=== PATIENT | female | born 1960 | race American Indian/Alaskan Native ===

== ENCOUNTER 2020-08-28 11:19 | Inpatient (IN) | payer MEDICARE ==
[2020-08-28] MEDS ORDERED: SODIUM CHLORIDE 0.9% 1000 ML 1,000 ML IV ONE (12:26)
[2020-08-28] MEDS ORDERED: cefTRIAXone/NS 1 GM/50 ML 1 GM/50 ML BAG IV ONE (12:53)
[2020-08-28] MEDS ORDERED: HYDROCORTISONE SOD SUCC 100 MG/2 ML VIAL IV ONE (12:54)
[2020-08-28] MEDS ORDERED: AZITHROMYCIN/NS 500 MG/250 ML 500 MG/250 ML BAG IV ONE (12:54)
--- NOTE | 2020-08-28 12:55 | Emergency Department Report ---
ED General Adult HPI - General Chief complaint: Dyspnea/Respdistress Stated complaint: SHORTNESS OF BREATH/ABDOMINAL PAIN Time Seen by Provider: 08/28/20 12:16 Source: EMS Mode of arrival: Ambulatory Limitations: No Limitations - History of Present Illness Initial comments: This is a 60-year-old female who arrives via EMS. She was found to have a pulse oximetry of 78% on room air on EMS arrival. She was placed on supplemental oxygen. She tells me that she has been coughing for at least 2 days. Apparently she declined the Covid vaccine. She states "I did not want it". She denies any known Covid exposure. She states that she has never been diagnosed with any cardiopulmonary problem. She has not been recently hospitalized. Patient describes the cough is nonproductive. She states that she has had some right upper quadrant pain and seems to be stating something about a "stone". She however denies kidney stone or gallstone. She denies any previous abdominal problem or surgery other than hysterectomy. Her current medications include a statin, allopurinol, glipizide (type 2 diabetes not on insulin) and metoprolol/HCTZ for hypertension. She does take aspirin. Apparently she has an additional history of hypothyroidism although not on current medications. Patient has not been taking her temperature but she thinks she may have had chills. -: Gradual Location: abdomen Radiation: non-radiation Quality: aching Improves with: none Worsens with: none Associated Symptoms: denies other symptoms, cough, shortness of breath - Related Data Allergies Allergy/AdvReac Type Severity Reaction Status Date / Time No Known Allergies Allergy Unverified 08/28/20 12:54 ED Review of Systems ROS: Stated complaint: SHORTNESS OF BREATH/ABDOMINAL PAIN Other details as noted in HPI Constitutional: chills. denies: fever Eyes: denies: eye pain, vision change ENT: denies: ear pain, throat pain Respiratory: cough, shortness of breath. denies: wheezing Cardiovascular: denies: chest pain, palpitations Endocrine: no symptoms reported Gastrointestinal: abdominal pain. denies: nausea, vomiting, diarrhea Genitourinary: denies: urgency, dysuria, discharge Musculoskeletal: denies: back pain, joint swelling, arthralgia Skin: denies: rash, lesions Neurological: denies: headache, weakness, paresthesias Psychiatric: denies: anxiety, depression Hematological/Lymphatic: denies: easy bleeding, easy bruising ED Past Medical Hx - Past Medical History Previous Medical History?: Yes Hx Hypertension: Yes Hx Diabetes: Yes Additional medical history: hypothyroidism , high cholesterol - Surgical History Additional Surgical History: hysterectomy - Social History Smoking Status: Former Smoker ED Physical Exam - General Limitations: Physical Limitation General appearance: alert, in no apparent distress - Head Head exam: Present: atraumatic, normocephalic - Eye Eye exam: Present: normal appearance. Absent: scleral icterus - ENT ENT exam: Present: mucous membranes moist - Neck Neck exam: Present: normal inspection. Absent: tenderness, meningismus - Respiratory Respiratory exam: Present: rhonchi (Occasional distant). Absent: respiratory distress - Cardiovascular Cardiovascular Exam: Present: regular rate, normal rhythm. Absent: systolic murmur, diastolic murmur, rubs, gallop - GI/Abdominal GI/Abdominal exam: Present: soft, normal bowel sounds. Absent: distended, tenderness, guarding, rebound, rigid, organomegaly, mass, bruit, pulsatile mass, hernia - Extremities Exam Extremities exam: Present: normal inspection, calf tenderness (Right calf) - Back Exam Back exam: Present: normal inspection. Absent: CVA tenderness (R), CVA tenderness (L), muscle spasm, paraspinal tenderness, vertebral tenderness - Neurological Exam Neurological exam: Present: alert, oriented X3, CN II-XII intact. Absent: motor sensory deficit - Psychiatric Psychiatric exam: Present: normal affect, normal mood - Skin Skin exam: Present: warm, dry, intact, normal color. Absent: rash ED Course Vital Signs 08/28/20 08/28/20 08/28/20 11:35 11:40 12:00 Temperature 97.8 F Pulse Rate 91 H Respiratory 18 Rate Blood Pressure 151/64 134/69 O2 Sat by Pulse 95 97 94 Oximetry 08/28/20 08/28/20 12:16 12:30 Temperature Pulse Rate 82 85 Respiratory 23 13 Rate Blood Pressure 134/69 129/73 O2 Sat by Pulse 96 98 Oximetry - Reevaluation(s) Reevaluation #1: Patient's chest x-ray and illness appear consistent with Covid. Her x-ray shows multifocal pneumonia. I do not think this is CHF. She was started on ceftriaxone and a azithromycin. She was given 1 dose of Solu-Medrol. Patient was not found to have any abdominal pain and did not continue to complain of this. I will defer further work-up to the hospitalist. Patient's blood gas was done on 4 L of O2. Her PO2 is only in the 70s. The nurse did try to very her oxygen rate and found her to be hypoxic on low flow. She is not retaining CO2. She does not need high flow or BiPAP at this point. Patient is referred to Dr. Deutsch for further care, work-up and management. He stated he would come to the emergency department to see her. 08/28/20 15:20 08/28/20 15:25 The patient's D-dimer is quite elevated. I will leave it up to Dr. Deutsch to decide on further imaging and anticoagulation protocol. ED Medical Decision Making - Lab Data Result diagrams: 08/28/20 13:29 08/28/20 13:29 Laboratory Results - last 24 hr 08/28/20 08/28/20 08/28/20 13:29 13:29 13:29 WBC 17.0 H RBC 4.22 Hgb 10.4 Hct 32.5 MCV 77 L MCH 25 L MCHC 32 RDW 18.7 H Plt Count 305 Lymph % (Auto) 15.0 [place] % (Auto) 5.2 Eos % (Auto) 1.1 Baso % (Auto) 0.3 Lymph # (Auto) 2.5 [place] # (Auto) 0.9 H Eos # (Auto) 0.2 Baso # (Auto) 0.0 Seg Neutrophils % 78.4 H Seg Neutrophils # 13.3 H PT 16.0 H INR 1.30 H APTT 39.5 H D-Dimer 1604.24 H ABG pH ABG pCO2 ABG pO2 ABG HCO3 ABG O2 Saturation ABG O2 Content ABG Base Excess ABG Hemoglobin ABG Carboxyhemoglobin ABG Methemoglobin Oxyhemoglobin FiO2 Sodium 143 Potassium 3.4 L Chloride 104.5 Carbon Dioxide 28 Anion Gap 14 BUN 17 Creatinine 1.6 H Estimated GFR 40 BUN/Creatinine Ratio 11 Glucose 117 H Lactic Acid Calcium 7.9 L Magnesium 1.50 L Ferritin Total Bilirubin Direct Bilirubin Indirect Bilirubin AST ALT Alkaline Phosphatase Lactate Dehydrogenase Total Creatine Kinase 136 H CK-MB (CK-2) 1.8 CK-MB (CK-2) Rel Index 1.3 Troponin T 0.018 C-Reactive Protein NT-Pro-B Natriuret Pep Total Protein Albumin Albumin/Globulin Ratio Lipase Urine Color Urine Turbidity Urine pH Ur Specific [place] Urine Protein Urine Glucose (UA) Urine Ketones Urine Blood Urine Nitrite Urine Bilirubin Urine Urobilinogen Ur Leukocyte Esterase Urine WBC (Auto) Urine RBC (Auto) U Epithel Cells (Auto) Urine Mucus 08/28/20 08/28/20 08/28/20 13:29 13:29 13:29 WBC RBC Hgb Hct MCV MCH MCHC RDW Plt Count Lymph % (Auto) [place] % (Auto) Eos % (Auto) Baso % (Auto) Lymph # (Auto) [place] # (Auto) Eos # (Auto) Baso # (Auto) Seg Neutrophils % Seg Neutrophils # PT INR APTT D-Dimer ABG pH ABG pCO2 ABG pO2 ABG HCO3 ABG O2 Saturation ABG O2 Content ABG Base Excess ABG Hemoglobin ABG Carboxyhemoglobin ABG Methemoglobin Oxyhemoglobin FiO2 Sodium Potassium Chloride Carbon Dioxide Anion Gap BUN Creatinine Estimated GFR BUN/Creatinine Ratio Glucose 116 H Lactic Acid 1.40 Calcium Magnesium Ferritin 395.2 H Total Bilirubin 0.40 Direct Bilirubin < 0.2 Indirect Bilirubin 0.2 AST 10 ALT < 5 L Alkaline Phosphatase 80 Lactate Dehydrogenase 179 Total Creatine Kinase CK-MB (CK-2) CK-MB (CK-2) Rel Index Troponin T C-Reactive Protein 9.10 H NT-Pro-B Natriuret Pep Total Protein 7.1 Albumin 3.0 L Albumin/Globulin Ratio 0.7 Lipase Urine Color Urine Turbidity Urine pH Ur Specific [place] Urine Protein Urine Glucose (UA) Urine Ketones Urine Blood Urine Nitrite Urine Bilirubin Urine Urobilinogen Ur Leukocyte Esterase Urine WBC (Auto) Urine RBC (Auto) U Epithel Cells (Auto) Urine Mucus 08/28/20 08/28/20 08/28/20 13:29 13:29 13:29 WBC RBC Hgb Hct MCV MCH MCHC RDW Plt Count Lymph % (Auto) [place] % (Auto) Eos % (Auto) Baso % (Auto) Lymph # (Auto) [place] # (Auto) Eos # (Auto) Baso # (Auto) Seg Neutrophils % Seg Neutrophils # PT INR APTT D-Dimer ABG pH ABG pCO2 ABG pO2 ABG HCO3 ABG O2 Saturation ABG O2 Content ABG Base Excess ABG Hemoglobin ABG Carboxyhemoglobin ABG Methemoglobin Oxyhemoglobin FiO2 Sodium Potassium Chloride Carbon Dioxide Anion Gap BUN Creatinine Estimated GFR BUN/Creatinine Ratio Glucose 117 H Lactic Acid Calcium Magnesium Ferritin Total Bilirubin Direct Bilirubin Indirect Bilirubin AST ALT Alkaline Phosphatase Lactate Dehydrogenase 179 Total Creatine Kinase CK-MB (CK-2) CK-MB (CK-2) Rel Index Troponin T C-Reactive Protein 9.10 H NT-Pro-B Natriuret Pep 3706 H Total Protein Albumin Albumin/Globulin Ratio Lipase 11 L Urine Color Urine Turbidity Urine pH Ur Specific [place] Urine Protein Urine Glucose (UA) Urine Ketones Urine Blood Urine Nitrite Urine Bilirubin Urine Urobilinogen Ur Leukocyte Esterase Urine WBC (Auto) Urine RBC (Auto) U Epithel Cells (Auto) Urine Mucus 08/28/20 08/28/20 Unknown Unknown WBC RBC Hgb Hct MCV MCH MCHC RDW Plt Count Lymph % (Auto) [place] % (Auto) Eos % (Auto) Baso % (Auto) Lymph # (Auto) [place] # (Auto) Eos # (Auto) Baso # (Auto) Seg Neutrophils % Seg Neutrophils # PT INR APTT D-Dimer ABG pH 7.425 ABG pCO2 41.2 ABG pO2 74.7 L ABG HCO3 26.4 H ABG O2 Saturation 96.1 ABG O2 Content 12.0 ABG Base Excess 1.9 ABG Hemoglobin 9.1 L ABG Carboxyhemoglobin 2.5 ABG Methemoglobin 0.5 Oxyhemoglobin 93.3 L FiO2 36 Sodium Potassium Chloride Carbon Dioxide Anion Gap BUN Creatinine Estimated GFR BUN/Creatinine Ratio Glucose Lactic Acid Calcium Magnesium Ferritin Total Bilirubin Direct Bilirubin Indirect Bilirubin AST ALT Alkaline Phosphatase Lactate Dehydrogenase Total Creatine Kinase CK-MB (CK-2) CK-MB (CK-2) Rel Index Troponin T C-Reactive Protein NT-Pro-B Natriuret Pep Total Protein Albumin Albumin/Globulin Ratio Lipase Urine Color Yellow Urine Turbidity Clear Urine pH 7.0 Ur Specific [place] 1.012 Urine Protein 100 mg/dl Urine Glucose (UA) Neg Urine Ketones Neg Urine Blood Neg Urine Nitrite Neg Urine Bilirubin Neg Urine Urobilinogen 4.0 Ur Leukocyte Esterase Neg Urine WBC (Auto) 2.0 Urine RBC (Auto) 2.0 U Epithel Cells (Auto) 2.0 Urine Mucus Few Critical care attestation.: If time is entered above; I have spent that time in minutes in the direct care of this critically ill patient, excluding procedure time. ED Disposition Clinical Impression: Hypoxia, Elevated brain natriuretic peptide (BNP) level Bilateral pneumonia Qualifiers: Pneumonia type: due to unspecified organism Lung location: lower lobe of lung Qualified Code(s): J18.9 - Pneumonia, unspecified organism Type 2 diabetes mellitus Qualifiers: Diabetes mellitus intermediate insulin use: without intermediate use Diabetes mellitus complication status: without complication Qualified Code(s): E11.9 - Type 2 diabetes mellitus without complications Disposition: OP ADMIT IP TO THIS HOSP Is pt being admited?: Yes Does the pt Need Aspirin: Yes Condition: Stable Instructions: Diabetes Mellitus Type 2 in Adults (ED), Bacterial Pneumonia (ED) Referrals: PRIMARY CARE, [Primary Care Provider] - 3-5 Days Time of Disposition: 15:26
--- NOTE | 2020-08-28 13:07 | XRay Report ---
CHEST 1 VIEW 08/28/2020 12:28 PM INDICATION / CLINICAL INFORMATION: Dyspnea. COMPARISON: None available. FINDINGS: SUPPORT DEVICES: None. HEART / MEDIASTINUM: No significant abnormality. LUNGS / PLEURA: There are patchy bilateral pulmonary opacities. No pneumothorax. ADDITIONAL FINDINGS: No significant additional findings. IMPRESSION: 1. Patchy bilateral pulmonary opacities that may indicate multifocal pneumonia. Signer Name: Facundo Stern MD Signed: 08/28/2020 1:02 PM Workstation Name: [id number]
[2020-08-28 13:23] LABS: Bilirubin,Urine NEG (Negative); Blood,Urine NEG (Negative); Color,Urine Yellow (Yellow); Mucus,Urine FEW /HPF
[2020-08-28 13:53] LABS: ABG Base Excess 1.9 mmol/L (-2.0-3.0); ABG HCO3 26.4 mmol/L (20.0-26.0); ABG Methemoglobin 0.5 % (0.0-1.5); ABG Oxygen Saturation 96.1 % (95.0-99.0); ABG PCO2 41.2 mm Hg; ABG PH 7.425 pH Units (7.350-7.450); ABG PO2 74.7 mm Hg (80.0-90.0)
[2020-08-28 13:55] LABS: Basophils % (Auto) 0.3 % (0.0-1.8); Eosinophils # (Auto) 0.2 K/mm3 (0.0-0.4); Eosinophils % (Auto) 1.1 % (0.0-4.3); Hematocrit 32.5 % (30.3-42.9); Hemoglobin 10.4 gm/dl (10.1-14.3); Lymphocytes # (Auto) 2.5 K/mm3 (1.2-5.4); Mean Corpuscular HGB Conc 32 % (30-34); Mean Corpuscular Volume 77 fl (79-97); Monocytes # (Auto) 0.9 K/mm3 (0.0-0.8); Monocytes % (Auto) 5.2 % (0.0-7.3); Platelet Count 305 K/mm3 (140-440); Red Blood Count 4.22 M/mm3 (3.65-5.03); Red Cell Distribution Width 18.7 % (13.2-15.2)
[2020-08-28 14:04] LABS: INR 1.3 (0.87-1.13)
[2020-08-28 14:05] LABS: Partial Thromboplastin Time 39.5 Sec. (24.2-36.6)
[2020-08-28 14:16] LABS: Creatine Kinase MB 1.8 ng/mL (0.0-4.0)
[2020-08-28 14:18] LABS: Calcium 7.9 mg/dL (8.4-10.2)
[2020-08-28 14:19] LABS: Alanine Aminotransferase < 5 units/L (7-56); Bilirubin,Direct < 0.2 mg/dL (0-0.2)
[2020-08-28 14:37] LABS: C-Reactive Protein 9.1 mg/dL (0.00-1.30)
--- NOTE | 2020-08-28 15:13 | Vascular Lab Report ---
DUPLEX DOPPLER LOWER EXTREMITY VEINS, RIGHT INDICATION / CLINICAL INFORMATION: r leg swelling. TECHNIQUE: Duplex doppler imaging was performed through the veins of the right lower extremity using venous comp ression and other maneuvers. COMPARISON: None available. FINDINGS: RIGHT COMMON FEMORAL VEIN: Negative. RIGHT FEMORAL VEIN: Negative. RIGHT POPLITEAL VEIN: Negative. RIGHT CALF VEINS: Negative. ADDITIONAL FINDINGS: None. IMPRESSION: 1. No sonographic evidence for DVT in the right lower extremity. Signer Name: Carlotta Harper MD Signed: 08/28/2020 3:08 PM Workstation Name: [id number]
[2020-08-28] MEDS ORDERED: ASPIRIN 325 MG TAB PO ONE (15:27)
--- NOTE | 2020-08-28 23:45 | History and Physical Report ---
History of Present Illness Date of examination: 08/28/20 Date of admission: 08/28/20 15:27 Chief complaint: Cough fever and shortness of breath for 2 days History of present illness: 61-year-old female with history of hypertension, type 2 diabetes and hyperlipidemia comes in for cough of 2 days duration associated with muscle aches. Cough productive of mucoid sputum. Also low-grade fever for the last 2 days. Patient apparently declined Covid vaccine. Because she does not believe in the Covid vaccine. No exposure to coronavirus as far as she knows. Some an osmia present which is intermittent. Her oxygen saturations were low in the emergency room. Normalized with 4 L nasal cannula oxygen - Past Medical History --Previous Medical History?: Yes --Hypertension: Yes --Diabetes: Yes --Additional medical history: hypothyroidism , high cholesterol - Surgical History Additional Surgical History: hysterectomy - Social History Smoking Status: Former Smoker Family history Htn Review of Systems ROS: Stated complaint: SHORTNESS OF BREATH/ABDOMINAL PAIN Other details as noted in HPI Constitutional: chills. denies: fever Eyes: denies: eye pain, vision change ENT: denies: ear pain, throat pain Respiratory: cough, shortness of breath. denies: wheezing Cardiovascular: denies: chest pain, palpitations Endocrine: no symptoms reported Gastrointestinal: abdominal pain. denies: nausea, vomiting, diarrhea Genitourinary: denies: urgency, dysuria, discharge Musculoskeletal: denies: back pain, joint swelling, arthralgia Skin: denies: rash, lesions Neurological: denies: headache, weakness, paresthesias Psychiatric: denies: anxiety, depression Hematological/Lymphatic: denies: easy bleeding, easy bruising Medications and Allergies Allergies Allergy/AdvReac Type Severity Reaction Status Date / Time No Known Allergies Allergy Unverified 08/28/20 12:54 Exam - Constitutional Vitals: Temp Pulse Resp BP Pulse Ox 97.8 F 96 H 15 149/119 95 08/28/20 11:35 08/28/20 21:30 08/28/20 21:30 08/28/20 21:30 08/28/20 21:30 General appearance: Present: mild distress, well-nourished - EENT Eyes: Present: PERRL ENT: hearing intact, clear oral mucosa - Neck Neck: Present: supple, normal ROM - Respiratory Respiratory effort: normal Respiratory: bilateral: CTA, rhonchi (Scattered rhonchi) - Cardiovascular Heart rate: 78 Rhythm: regular Heart Sounds: Present: S1 & S2. Absent: rub, click - Extremities Extremities: no ischemia, pulses intact, pulses symmetrical, No edema Peripheral Pulses: within normal limits - Abdominal General gastrointestinal: Present: soft, non-tender, non-distended, normal bowel sounds Female genitourinary: Present: normal - Integumentary Integumentary: Present: clear, warm, dry - Musculoskeletal Musculoskeletal: gait normal, strength equal bilaterally - Psychiatric Psychiatric: appropriate mood/affect, intact judgment & insight - Neurologic Neurologic: CNII-XII intact, moves all extremities - Allied Health Allied health notes reviewed: nursing, case management HEART Score - HEART Score Troponin: Troponin T 0.018 ng/mL (0.00-0.029) 08/28/20 13:29 Results - Labs CBC & Chem 7: 08/28/20 13:29 08/28/20 13:29 Labs: Laboratory Last Values WBC 17.0 K/mm3 (4.5-11.0) H 08/28/20 13:29 RBC 4.22 M/mm3 (3.65-5.03) 08/28/20 13:29 Hgb 10.4 gm/dl (10.1-14.3) 08/28/20 13:29 Hct 32.5 % (30.3-42.9) 08/28/20 13:29 MCV 77 fl (79-97) L 08/28/20 13:29 MCH 25 pg (28-32) L 08/28/20 13:29 MCHC 32 % (30-34) 08/28/20 13:29 RDW 18.7 % (13.2-15.2) H 08/28/20 13:29 Plt Count 305 K/mm3 (140-440) 08/28/20 13:29 Lymph % (Auto) 15.0 % (13.4-35.0) 08/28/20 13:29 [place] % (Auto) 5.2 % (0.0-7.3) 08/28/20 13:29 Eos % (Auto) 1.1 % (0.0-4.3) 08/28/20 13:29 Baso % (Auto) 0.3 % (0.0-1.8) 08/28/20 13:29 Lymph # (Auto) 2.5 K/mm3 (1.2-5.4) 08/28/20 13:29 [place] # (Auto) 0.9 K/mm3 (0.0-0.8) H 08/28/20 13:29 Eos # (Auto) 0.2 K/mm3 (0.0-0.4) 08/28/20 13:29 Baso # (Auto) 0.0 K/mm3 (0.0-0.1) 08/28/20 13:29 Seg Neutrophils % 78.4 % (40.0-70.0) H 08/28/20 13:29 Seg Neutrophils # 13.3 K/mm3 (1.8-7.7) H 08/28/20 13:29 PT 16.0 Sec. (12.2-14.9) H 08/28/20 13:29 INR 1.30 (0.87-1.13) H 08/28/20 13:29 APTT 39.5 Sec. (24.2-36.6) H 08/28/20 13:29 D-Dimer 1604.24 ng/mlDDU (0-234) H 08/28/20 13:29 ABG pH 7.425 pH Units (7.350-7.450) 08/28/20 Unknown ABG pCO2 41.2 mm Hg 08/28/20 Unknown ABG pO2 74.7 mm Hg (80.0-90.0) L 08/28/20 Unknown ABG HCO3 26.4 mmol/L (20.0-26.0) H 08/28/20 Unknown ABG O2 Saturation 96.1 % (95.0-99.0) 08/28/20 Unknown ABG O2 Content 12.0 (0.0-44) 08/28/20 Unknown ABG Base Excess 1.9 mmol/L (-2.0-3.0) 08/28/20 Unknown ABG Hemoglobin 9.1 gm/dl (12.0-16.0) L 08/28/20 Unknown ABG Carboxyhemoglobin 2.5 % (0.0-5.0) 08/28/20 Unknown ABG Methemoglobin 0.5 % (0.0-1.5) 08/28/20 Unknown Oxyhemoglobin 93.3 % (95.0-99.0) L 08/28/20 Unknown FiO2 36 % 08/28/20 Unknown Sodium 143 mmol/L (137-145) 08/28/20 13:29 Potassium 3.4 mmol/L (3.6-5.0) L 08/28/20 13:29 Chloride 104.5 mmol/L (98-107) 08/28/20 13:29 Carbon Dioxide 28 mmol/L (22-30) 08/28/20 13:29 Anion Gap 14 mmol/L 08/28/20 13:29 BUN 17 mg/dL (7-17) 08/28/20 13:29 Creatinine 1.6 mg/dL (0.6-1.2) H 08/28/20 13:29 Estimated GFR 40 ml/min 08/28/20 13:29 BUN/Creatinine Ratio 11 % 08/28/20 13:29 Glucose 116 mg/dL (65-100) H 08/28/20 13:29 Glucose 117 mg/dL (65-100) H 08/28/20 13:29 Glucose 117 mg/dL (65-100) H 08/28/20 13:29 Lactic Acid 1.40 mmol/L (0.7-2.0) 08/28/20 13:29 Calcium 7.9 mg/dL (8.4-10.2) L 08/28/20 13:29 Magnesium 1.50 mg/dL (1.7-2.3) L 08/28/20 13:29 Ferritin 395.2 ng/mL (10.0-200.0) H 08/28/20 13:29 Total Bilirubin 0.40 mg/dL (0.1-1.2) 08/28/20 13:29 Direct Bilirubin < 0.2 mg/dL (0-0.2) 08/28/20 13:29 Indirect Bilirubin 0.2 mg/dL 08/28/20 13:29 AST 10 units/L (5-40) 08/28/20 13:29 ALT < 5 units/L (7-56) L 08/28/20 13:29 Alkaline Phosphatase 80 units/L (35-129) 08/28/20 13:29 Lactate Dehydrogenase 179 units/L (91-180) 08/28/20 13:29 Lactate Dehydrogenase 179 units/L (91-180) 08/28/20 13:29 Total Creatine Kinase 136 units/L (30-135) H 08/28/20 13:29 CK-MB (CK-2) 1.8 ng/mL (0.0-4.0) 08/28/20 13:29 CK-MB (CK-2) Rel Index 1.3 (0-4) 08/28/20 13:29 Troponin T 0.018 ng/mL (0.00-0.029) 08/28/20 13:29 C-Reactive Protein 9.10 mg/dL (0.00-1.30) H 08/28/20 13:29 C-Reactive Protein 9.10 mg/dL (0.00-1.30) H 08/28/20 13:29 NT-Pro-B Natriuret Pep 3706 pg/mL (0-900) H 08/28/20 13:29 Total Protein 7.1 g/dL (6.3-8.2) 08/28/20 13:29 Albumin 3.0 g/dL (3.9-5) L 08/28/20 13:29 Albumin/Globulin Ratio 0.7 % 08/28/20 13:29 Lipase 11 units/L (13-60) L 08/28/20 13:29 Urine Color Yellow (Yellow) 08/28/20 Unknown Urine Turbidity Clear (Clear) 08/28/20 Unknown Urine pH 7.0 (5.0-7.0) 08/28/20 Unknown Ur Specific [place] 1.012 (1.003-1.030) 08/28/20 Unknown Urine Protein 100 mg/dl mg/dL (Negative) 08/28/20 Unknown Urine Glucose (UA) Neg mg/dL (Negative) 08/28/20 Unknown Urine Ketones Neg mg/dL (Negative) 08/28/20 Unknown Urine Blood Neg (Negative) 08/28/20 Unknown Urine Nitrite Neg (Negative) 08/28/20 Unknown Urine Bilirubin Neg (Negative) 08/28/20 Unknown Urine Urobilinogen 4.0 mg/dL (<2.0) 08/28/20 Unknown Ur Leukocyte Esterase Neg (Negative) 08/28/20 Unknown Urine WBC (Auto) 2.0 /HPF (0.0-6.0) 08/28/20 Unknown Urine RBC (Auto) 2.0 /HPF (0.0-6.0) 08/28/20 Unknown U Epithel Cells (Auto) 2.0 /HPF (0-13.0) 08/28/20 Unknown Urine Mucus Few /HPF 08/28/20 Unknown Microbiology: Microbiology 08/28/20 13:29 Peripheral/Venous Blood Culture - Preliminary Culture in Progress 08/28/20 13:29 Peripheral/Venous Blood Culture - Preliminary Culture in Progress - Imaging and Cardiology EKG: report reviewed Chest x-ray: report reviewed Imaging and Cardiology: Chest x-ray Patchy bilateral pulmonary opacities that may indicate multifocal pneumonia Assessment and Plan Assessment and plan: Assessment and plan 1. Acute respiratory failure with hypoxia Secondary to bilateral pneumonia and possible Covid pneumonia Titrate oxygen to keep saturations above 92 High flow oxygen if necessary BiPAP if necessary 2. Bilateral pneumonia Treat as community-acquired pneumonia for now with IV Rocephin and Zithromax IV Decadron for possible Covid pneumonia ID consult requested 3. Systemic inflammatory response syndrome Patient has a high white count and slight tachypnea and tachycardia. 4. Hypokalemia Supplemented 5. MARILIN Secondary to vasomotor nephropathy Encourage more oral fluids 6. Hypertension uncontrolled Valsartan and hydralazine initiated Also IV hydralazine 10 mg every 3 as needed for blood pressure more than 160/100 7. Type 2 diabetes As per history No home medications at present No medicines for reconciliation Check hemoglobin A1c Accu-Cheks AC at bedtime and coverage 8. DVT prophylaxis Lovenox subcu 40 mg initiated and GI bleed prophylaxis initiated Advance Directives: Yes ( full code) VTE prophylaxis?: Chemical Plan of care discussed with patient/family: Yes
[2020-08-28] MEDS ORDERED: oxyCODONE /ACETAMINOPHEN 5-325MG TAB PO PRN (23:53)
[2020-08-28] MEDS ORDERED: ONDANSETRON 4 MG/2 ML INJ IV PRN (23:53)
[2020-08-28] MEDS ORDERED: HYDROmorphone 1 MG/1 ML INJ IV PRN (23:53)
[2020-08-28] MEDS ORDERED: ACETAMINOPHEN 325 MG TAB PO PRN (23:53)
[2020-08-29] MEDS: dexAMETHasone 4 MG/ML VIAL IV SCH
[2020-08-29] MEDS ORDERED: POTASSIUM CHLORIDE ER 20 MEQ TAB PO ONE (00:21)
[2020-08-29 05:19] LABS: Basophils % (Auto) 0.2 % (0.0-1.8); Hematocrit 34.8 % (30.3-42.9); Hemoglobin 10.9 gm/dl (10.1-14.3); Lymphocytes # (Auto) 1.6 K/mm3 (1.2-5.4); Mean Corpuscular HGB Conc 31 % (30-34); Mean Corpuscular Volume 78 fl (79-97); Monocytes # (Auto) 0.2 K/mm3 (0.0-0.8); Platelet Count 311 K/mm3 (140-440); Red Blood Count 4.48 M/mm3 (3.65-5.03); Red Cell Distribution Width 18.8 % (13.2-15.2)
[2020-08-29 05:47] LABS: Albumin 3.1 g/dL (3.9-5)
[2020-08-29] MEDS: INSULIN LISPRO 100 UNIT/ML SUB-Q SCH ×4 (08:31→23:38)
[2020-08-29] MEDS: AZITHROMYCIN/NS 500 MG/250 ML 500 MG/250 ML BAG IV SCH (09:23)
[2020-08-29] MEDS: cefTRIAXone/NS 2 GM/100 ML 2 GM/100 ML BAG IV SCH (09:23)
[2020-08-29] MEDS: FAMOTIDINE 20 MG/2 ML INJ IV SCH (09:23)
[2020-08-29] MEDS: ZINC SULFATE 220 MG CAP PO SCH ×3 (09:24→21:01)
[2020-08-29] MEDS: CHOLECALCIFEROL (VIT D3) 5,000 UNIT TAB PO SCH (09:24)
[2020-08-29] MEDS: VALSARTAN 160MG TAB PO SCH ×3 (09:26→21:01)
[2020-08-29] MEDS: ASCORBIC ACID 500 MG TAB PO SCH ×2 (09:26→21:01)
[2020-08-29] MEDS ORDERED: FAMOTIDINE 20 MG/2 ML INJ IV SCH (10:00)
--- NOTE | 2020-08-29 13:11 | Progress Note ---
Assessment and Plan Assessment and plan: 60-year-old -[place] female who presents with acute respiratory failure with hypoxemia Assessment and plan 1. Acute respiratory failure with hypoxia Secondary to bilateral pneumonia and possible Covid pneumonia Continue respiratory support with nasal cannula oxygen, high flow or BiPAP as necessary 2. Bilateral pneumonia, community-acquired pneumonia versus Covid pneumonia Azithromycin and ceftriaxone IV Decadron for possible Covid pneumonia ID consult requested 3. Systemic inflammatory response syndrome Leukocytosis, tachypnea and tachycardia noted 4. Hypokalemia Supplemented 5. MARILIN Secondary to vasomotor nephropathy Encourage more oral fluids Could be patient's baseline at this time. 6. Hypertension uncontrolled Valsartan and hydralazine initiated IV hydralazine with parameters 7. Type 2 diabetes As per history Patient takes Lantus 15 units at bedtime hemoglobin A1c 5.4 Accu-Cheks AC at bedtime and coverage 8. DVT prophylaxis Lovenox subcu 40 mg initiated and GI bleed prophylaxis initiated History Interval history: 08/29/2020: Patient seen and examined, on about 3 L of oxygen, nasal cannula, no acute respiratory distress, urine breathing, denies any chest pain. States that her breathing has improved. Hospitalist Physical - Physical exam Narrative exam: General appearance: Obese, no acute distress, well-nourished EENT: PERRL, EOM intact, hearing intact, clear oral mucosa Neck: Present: supple, normal ROM Respiratory: bilateral CTA, negative: rales, rhonchi, wheezing Cardiovascular: Regular rate/rhythm, Normal S1 & S2. No gallop, rub Extremities: no ischemia, No edema, normal temperature, normal color, Full ROM Abdominal: soft, no tenderness, non-distended, normal bowel sounds Integumentary: Present: clear, warm, dry no wounds, no erythema noted Psychiatric: appropriate mood/affect, intact judgment & insight Neurologic: CNII-XII intact, moves all extremities, no sensory or motor abnormalities - Constitutional Vitals: Temp Pulse Resp BP Pulse Ox 97.8 F 98 H 22 185/88 94 08/28/20 11:35 08/29/20 11:27 08/29/20 12:44 08/29/20 11:27 08/29/20 12:44 General appearance: Present: mild distress, well-nourished HEART Score - HEART Score Troponin: Troponin T 0.018 ng/mL (0.00-0.029) 08/28/20 13:29 Results - Labs CBC & Chem 7: 08/29/20 05:07 08/29/20 05:07 Labs: Laboratory Last Values WBC 18.2 K/mm3 (4.5-11.0) H 08/29/20 05:07 RBC 4.48 M/mm3 (3.65-5.03) 08/29/20 05:07 Hgb 10.9 gm/dl (10.1-14.3) 08/29/20 05:07 Hct 34.8 % (30.3-42.9) 08/29/20 05:07 MCV 78 fl (79-97) L 08/29/20 05:07 MCH 24 pg (28-32) L 08/29/20 05:07 MCHC 31 % (30-34) 08/29/20 05:07 RDW 18.8 % (13.2-15.2) H 08/29/20 05:07 Plt Count 311 K/mm3 (140-440) 08/29/20 05:07 Lymph % (Auto) 9.0 % (13.4-35.0) L 08/29/20 05:07 [place] % (Auto) 1.0 % (0.0-7.3) 08/29/20 05:07 Eos % (Auto) 0.0 % (0.0-4.3) 08/29/20 05:07 Baso % (Auto) 0.2 % (0.0-1.8) 08/29/20 05:07 Lymph # (Auto) 1.6 K/mm3 (1.2-5.4) 08/29/20 05:07 [place] # (Auto) 0.2 K/mm3 (0.0-0.8) 08/29/20 05:07 Eos # (Auto) 0.0 K/mm3 (0.0-0.4) 08/29/20 05:07 Baso # (Auto) 0.0 K/mm3 (0.0-0.1) 08/29/20 05:07 Seg Neutrophils % 89.8 % (40.0-70.0) H 08/29/20 05:07 Seg Neutrophils # 16.3 K/mm3 (1.8-7.7) H 08/29/20 05:07 PT 16.0 Sec. (12.2-14.9) H 08/28/20 13:29 INR 1.30 (0.87-1.13) H 08/28/20 13:29 APTT 39.5 Sec. (24.2-36.6) H 08/28/20 13:29 D-Dimer 1604.24 ng/mlDDU (0-234) H 08/28/20 13:29 ABG pH 7.425 pH Units (7.350-7.450) 08/28/20 Unknown ABG pCO2 41.2 mm Hg 08/28/20 Unknown ABG pO2 74.7 mm Hg (80.0-90.0) L 08/28/20 Unknown ABG HCO3 26.4 mmol/L (20.0-26.0) H 08/28/20 Unknown ABG O2 Saturation 96.1 % (95.0-99.0) 08/28/20 Unknown ABG O2 Content 12.0 (0.0-44) 08/28/20 Unknown ABG Base Excess 1.9 mmol/L (-2.0-3.0) 08/28/20 Unknown ABG Hemoglobin 9.1 gm/dl (12.0-16.0) L 08/28/20 Unknown ABG Carboxyhemoglobin 2.5 % (0.0-5.0) 08/28/20 Unknown ABG Methemoglobin 0.5 % (0.0-1.5) 08/28/20 Unknown Oxyhemoglobin 93.3 % (95.0-99.0) L 08/28/20 Unknown FiO2 36 % 08/28/20 Unknown Sodium 143 mmol/L (137-145) 08/29/20 05:07 Potassium 3.6 mmol/L (3.6-5.0) 08/29/20 05:07 Chloride 105.0 mmol/L (98-107) 08/29/20 05:07 Carbon Dioxide 25 mmol/L (22-30) 08/29/20 05:07 Anion Gap 17 mmol/L 08/29/20 05:07 BUN 20 mg/dL (7-17) H 08/29/20 05:07 Creatinine 1.5 mg/dL (0.6-1.2) H 08/29/20 05:07 Estimated GFR 43 ml/min 08/29/20 05:07 BUN/Creatinine Ratio 13 % 08/29/20 05:07 Glucose 164 mg/dL (65-100) H 08/29/20 05:07 POC Glucose 153 mg/dL (70-105) H 08/29/20 00:32 Hemoglobin A1c 5.4 % (4-6) 08/29/20 05:07 Lactic Acid 1.40 mmol/L (0.7-2.0) 08/28/20 13:29 Calcium 8.0 mg/dL (8.4-10.2) L 08/29/20 05:07 Magnesium 1.50 mg/dL (1.7-2.3) L 08/28/20 13:29 Ferritin 395.2 ng/mL (10.0-200.0) H 08/28/20 13:29 Total Bilirubin 0.30 mg/dL (0.1-1.2) 08/29/20 05:07 Direct Bilirubin < 0.2 mg/dL (0-0.2) 08/28/20 13:29 Indirect Bilirubin 0.2 mg/dL 08/28/20 13:29 AST 10 units/L (5-40) 08/29/20 05:07 ALT 7 units/L (7-56) 08/29/20 05:07 Alkaline Phosphatase 85 units/L (35-129) 08/29/20 05:07 Lactate Dehydrogenase 179 units/L (91-180) 08/28/20 13:29 Lactate Dehydrogenase 179 units/L (91-180) 08/28/20 13:29 Total Creatine Kinase 136 units/L (30-135) H 08/28/20 13:29 CK-MB (CK-2) 1.8 ng/mL (0.0-4.0) 08/28/20 13:29 CK-MB (CK-2) Rel Index 1.3 (0-4) 08/28/20 13:29 Troponin T 0.018 ng/mL (0.00-0.029) 08/28/20 13:29 C-Reactive Protein 9.10 mg/dL (0.00-1.30) H 08/28/20 13:29 C-Reactive Protein 9.10 mg/dL (0.00-1.30) H 08/28/20 13:29 NT-Pro-B Natriuret Pep 3706 pg/mL (0-900) H 08/28/20 13:29 Total Protein 7.6 g/dL (6.3-8.2) 08/29/20 05:07 Albumin 3.1 g/dL (3.9-5) L 08/29/20 05:07 Albumin/Globulin Ratio 0.7 % 08/29/20 05:07 Lipase 11 units/L (13-60) L 08/28/20 13:29 Urine Color Yellow (Yellow) 08/28/20 Unknown Urine Turbidity Clear (Clear) 08/28/20 Unknown Urine pH 7.0 (5.0-7.0) 08/28/20 Unknown Ur Specific [place] 1.012 (1.003-1.030) 08/28/20 Unknown Urine Protein 100 mg/dl mg/dL (Negative) 08/28/20 Unknown Urine Glucose (UA) Neg mg/dL (Negative) 08/28/20 Unknown Urine Ketones Neg mg/dL (Negative) 08/28/20 Unknown Urine Blood Neg (Negative) 08/28/20 Unknown Urine Nitrite Neg (Negative) 08/28/20 Unknown Urine Bilirubin Neg (Negative) 08/28/20 Unknown Urine Urobilinogen 4.0 mg/dL (<2.0) 08/28/20 Unknown Ur Leukocyte Esterase Neg (Negative) 08/28/20 Unknown Urine WBC (Auto) 2.0 /HPF (0.0-6.0) 08/28/20 Unknown Urine RBC (Auto) 2.0 /HPF (0.0-6.0) 08/28/20 Unknown U Epithel Cells (Auto) 2.0 /HPF (0-13.0) 08/28/20 Unknown Urine Mucus Few /HPF 08/28/20 Unknown Microbiology: Microbiology 08/28/20 13:29 Peripheral/Venous Blood Culture - Preliminary Culture in Progress 08/28/20 13:29 Peripheral/Venous Blood Culture - Preliminary Culture in Progress Guzman/IV: Voiding Method Toilet Active Medications - Current Medications Current Medications: Generic Name Dose Route Start Last Admin Trade Name Freq PRN Reason Stop Dose Admin Acetaminophen 650 mg 08/28/20 23:53 Acetaminophen 325 Mg Tab PO Q4H PRN Pain MILD(1-3)/Fever >100.5/NEAL Ascorbic Acid 1,000 mg 08/28/20 23:45 08/29/20 09:26 Ascorbic Acid 500 Mg Tab PO 1,000 mg BID JUDY Administration Cholecalciferol 5,000 unit 08/29/20 10:00 08/29/20 09:24 Cholecalciferol (Vit D3) 5,000 Unit Tab PO 5,000 unit DAILY JUDY Administration Dexamethasone 8 mg 08/28/20 23:45 08/29/20 00:00 Dexamethasone 4 Mg/Ml Vial IV 8 mg Q24H JUDY Administration Enoxaparin Sodium 40 mg 08/29/20 22:00 Enoxaparin 40 Mg/0.4 Ml Inj SUB-Q QDAY@2200 [facility] Protocol Famotidine 20 mg 08/29/20 10:00 08/29/20 09:23 Famotidine 20 Mg/2 Ml Inj IV 20 mg DAILY JUDY Administration Hydralazine HCl 10 mg 08/29/20 00:00 Hydralazine 20 Mg/1 Ml Inj IV Q3H PRN Blood Pressure Hydromorphone HCl 0.5 mg 08/28/20 23:53 Hydromorphone 1 Mg/1 Ml Inj IV Q3H PRN Pain , Severe (7-10) Azithromycin 500 mg in 250 mls @ 250 mls/hr 08/29/20 10:00 08/29/20 09:23 Zithromax/Ns IV 250 mls/hr Q24H JUDY Administration Ceftriaxone Sodium 2 gm in 100 mls @ 200 mls/hr 08/29/20 10:00 08/29/20 09:23 Rocephin/Ns 2 Gm/100 Ml IV 200 mls/hr Q24HR [facility] Administration Protocol Insulin Human Lispro 0 unit 08/29/20 07:30 08/29/20 11:50 Insulin Lispro 100 Unit/Ml SUB-Q 2 unit ACHS [facility] Administration Protocol Ondansetron HCl 4 mg 08/28/20 23:53 Ondansetron 4 Mg/2 Ml Inj IV Q8H PRN Nausea And Vomiting Oxycodone/Acetaminophen 1 tab 08/28/20 23:53 08/29/20 05:39 Oxycodone /Acetaminophen 5-325mg Tab PO 1 tab Q6H PRN Administration Pain, Moderate (4-6) Sodium Chloride 10 ml 08/29/20 10:00 08/29/20 09:24 Sodium Chloride 0.9% 10 Ml Flush Syringe IV 10 ml BID JUDY Administration Sodium Chloride 10 ml 08/28/20 23:53 Sodium Chloride 0.9% 10 Ml Flush Syringe IV PRN PRN LINE FLUSH Valsartan 160 mg 08/29/20 00:00 08/29/20 09:26 Valsartan 160mg Tab PO 160 mg BID JUDY Administration Zinc Sulfate 220 mg 08/28/20 23:45 08/29/20 09:24 Zinc Sulfate 220 Mg Cap PO 220 mg BID JUDY Administration
[2020-08-29] MEDS ORDERED: amLODIPine 5 MG TAB PO SCH (19:00)
[2020-08-29] MEDS: ENOXAPARIN 40 MG/0.4 ML INJ SUB-Q SCH (21:01)
[2020-08-29] MEDS: INSULIN GLARGINE 100 UNITS/ML SUB-Q SCH (23:36)
[2020-08-30] MEDS: dexAMETHasone 4 MG/ML VIAL IV SCH ×2 (02:14→23:45)
[2020-08-30 07:49] LABS: Hematocrit 32.4 % (30.3-42.9); Hemoglobin 10.1 gm/dl (10.1-14.3); Mean Corpuscular HGB Conc 31 % (30-34); Mean Corpuscular Volume 77 fl (79-97); Platelet Count 305 K/mm3 (140-440); Red Blood Count 4.23 M/mm3 (3.65-5.03); Red Cell Distribution Width 18.9 % (13.2-15.2)
[2020-08-30 08:11] LABS: Calcium 8.1 mg/dL (8.4-10.2)
[2020-08-30] MEDS: INSULIN LISPRO 100 UNIT/ML SUB-Q SCH ×4 (08:29→21:58)
[2020-08-30] MEDS: ASCORBIC ACID 500 MG TAB PO SCH ×2 (09:40→21:19)
[2020-08-30] MEDS: CHOLECALCIFEROL (VIT D3) 5,000 UNIT TAB PO SCH (09:40)
[2020-08-30] MEDS: FAMOTIDINE 20 MG/2 ML INJ IV SCH (09:40)
--- NOTE | 2020-08-30 09:40 | Progress Note ---
Assessment and Plan Assessment and plan: 60-year-old -[place] female who presents with acute respiratory failure with hypoxemia Assessment and plan 1. Acute respiratory failure with hypoxia Secondary to bilateral pneumonia Continue respiratory support with nasal cannula oxygen, high flow or BiPAP as necessary 2. Bilateral pneumonia, community-acquired pneumonia Patient is Covid negative DC Decadron Azithromycin and ceftriaxone ID consult requested 3. Systemic inflammatory response syndrome Leukocytosis, tachypnea and tachycardia noted 4. Hypokalemia Supplement as needed 5. MARILIN Secondary to vasomotor nephropathy Encourage more oral fluids Could be patient's baseline at this time. 6. Hypertension uncontrolled Valsartan and hydralazine initiated IV hydralazine with parameters 7. Type 2 diabetes As per history Patient takes Lantus 15 units at bedtime hemoglobin A1c 5.4 Accu-Cheks AC at bedtime and coverage 8. DVT prophylaxis Lovenox subcu 40 mg initiated and GI bleed prophylaxis initiated Disposition: Continue to treat for community-acquired pneumonia, wean patient off of oxygen. History Interval history: 08/29/2020: Patient seen and examined, on about 3 L of oxygen, nasal cannula, no acute respiratory distress, urine breathing, denies any chest pain. States that her breathing has improved. 08/30/2020: Patient examined, on 3 L of oxygen, states that she has no chest pain, shortness of breath persists with some ambulation. No nausea vomiting, tolerating diet. Hospitalist Physical - Physical exam Narrative exam: General appearance: Obese, no acute distress, well-nourished EENT: PERRL, EOM intact, hearing intact, clear oral mucosa Neck: Present: supple, normal ROM Respiratory: Right lung clear, minimal crackles heard on lower left lung base, no wheezes, no rhonchi Cardiovascular: Regular rate/rhythm, Normal S1 & S2. No gallop, rub Extremities: no ischemia, No edema, normal temperature, normal color, Full ROM Abdominal: soft, no tenderness, non-distended, normal bowel sounds Integumentary: Present: clear, warm, dry no wounds, no erythema noted Psychiatric: appropriate mood/affect, intact judgment & insight Neurologic: CNII-XII intact, moves all extremities, no sensory or motor abnormalities - Constitutional Vitals: Temp Pulse Resp BP Pulse Ox 99 F 96 H 18 166/70 91 08/30/20 03:00 08/30/20 03:00 08/30/20 03:00 08/30/20 03:00 08/30/20 08:44 General appearance: Present: mild distress, well-nourished HEART Score - HEART Score Troponin: Troponin T 0.018 ng/mL (0.00-0.029) 08/28/20 13:29 Results - Labs CBC & Chem 7: 08/30/20 07:17 08/30/20 07:17 Labs: Laboratory Last Values WBC 18.3 K/mm3 (4.5-11.0) H 08/30/20 07:17 RBC 4.23 M/mm3 (3.65-5.03) 08/30/20 07:17 Hgb 10.1 gm/dl (10.1-14.3) 08/30/20 07:17 Hct 32.4 % (30.3-42.9) 08/30/20 07:17 MCV 77 fl (79-97) L 08/30/20 07:17 MCH 24 pg (28-32) L 08/30/20 07:17 MCHC 31 % (30-34) 08/30/20 07:17 RDW 18.9 % (13.2-15.2) H 08/30/20 07:17 Plt Count 305 K/mm3 (140-440) 08/30/20 07:17 Lymph % (Auto) 9.0 % (13.4-35.0) L 08/29/20 05:07 [place] % (Auto) 1.0 % (0.0-7.3) 08/29/20 05:07 Eos % (Auto) 0.0 % (0.0-4.3) 08/29/20 05:07 Baso % (Auto) 0.2 % (0.0-1.8) 08/29/20 05:07 Lymph # (Auto) 1.6 K/mm3 (1.2-5.4) 08/29/20 05:07 [place] # (Auto) 0.2 K/mm3 (0.0-0.8) 08/29/20 05:07 Eos # (Auto) 0.0 K/mm3 (0.0-0.4) 08/29/20 05:07 Baso # (Auto) 0.0 K/mm3 (0.0-0.1) 08/29/20 05:07 Seg Neutrophils % 89.8 % (40.0-70.0) H 08/29/20 05:07 Seg Neutrophils # 16.3 K/mm3 (1.8-7.7) H 08/29/20 05:07 PT 16.0 Sec. (12.2-14.9) H 08/28/20 13:29 INR 1.30 (0.87-1.13) H 08/28/20 13:29 APTT 39.5 Sec. (24.2-36.6) H 08/28/20 13:29 D-Dimer 1604.24 ng/mlDDU (0-234) H 08/28/20 13:29 ABG pH 7.425 pH Units (7.350-7.450) 08/28/20 Unknown ABG pCO2 41.2 mm Hg 08/28/20 Unknown ABG pO2 74.7 mm Hg (80.0-90.0) L 08/28/20 Unknown ABG HCO3 26.4 mmol/L (20.0-26.0) H 08/28/20 Unknown ABG O2 Saturation 96.1 % (95.0-99.0) 08/28/20 Unknown ABG O2 Content 12.0 (0.0-44) 08/28/20 Unknown ABG Base Excess 1.9 mmol/L (-2.0-3.0) 08/28/20 Unknown ABG Hemoglobin 9.1 gm/dl (12.0-16.0) L 08/28/20 Unknown ABG Carboxyhemoglobin 2.5 % (0.0-5.0) 08/28/20 Unknown ABG Methemoglobin 0.5 % (0.0-1.5) 08/28/20 Unknown Oxyhemoglobin 93.3 % (95.0-99.0) L 08/28/20 Unknown FiO2 36 % 08/28/20 Unknown Sodium 145 mmol/L (137-145) 08/30/20 07:17 Potassium 3.3 mmol/L (3.6-5.0) L 08/30/20 07:17 Chloride 107.4 mmol/L (98-107) H 08/30/20 07:17 Carbon Dioxide 26 mmol/L (22-30) 08/30/20 07:17 Anion Gap 15 mmol/L 08/30/20 07:17 BUN 23 mg/dL (7-17) H 08/30/20 07:17 Creatinine 1.3 mg/dL (0.6-1.2) H 08/30/20 07:17 Estimated GFR 50 ml/min 08/30/20 07:17 BUN/Creatinine Ratio 18 % 08/30/20 07:17 Glucose 192 mg/dL (65-100) H 08/30/20 07:17 POC Glucose 166 mg/dL (70-105) H 08/29/20 21:50 Hemoglobin A1c 5.4 % (4-6) 08/29/20 05:07 Lactic Acid 1.40 mmol/L (0.7-2.0) 08/28/20 13:29 Calcium 8.1 mg/dL (8.4-10.2) L 08/30/20 07:17 Magnesium 1.50 mg/dL (1.7-2.3) L 08/28/20 13:29 Ferritin 395.2 ng/mL (10.0-200.0) H 08/28/20 13:29 Total Bilirubin 0.30 mg/dL (0.1-1.2) 08/29/20 05:07 Direct Bilirubin < 0.2 mg/dL (0-0.2) 08/28/20 13:29 Indirect Bilirubin 0.2 mg/dL 08/28/20 13:29 AST 10 units/L (5-40) 08/29/20 05:07 ALT 7 units/L (7-56) 08/29/20 05:07 Alkaline Phosphatase 85 units/L (35-129) 08/29/20 05:07 Lactate Dehydrogenase 179 units/L (91-180) 08/28/20 13:29 Lactate Dehydrogenase 179 units/L (91-180) 08/28/20 13:29 Total Creatine Kinase 136 units/L (30-135) H 08/28/20 13:29 CK-MB (CK-2) 1.8 ng/mL (0.0-4.0) 08/28/20 13:29 CK-MB (CK-2) Rel Index 1.3 (0-4) 08/28/20 13:29 Troponin T 0.018 ng/mL (0.00-0.029) 08/28/20 13:29 C-Reactive Protein 9.10 mg/dL (0.00-1.30) H 08/28/20 13:29 C-Reactive Protein 9.10 mg/dL (0.00-1.30) H 08/28/20 13:29 NT-Pro-B Natriuret Pep 3706 pg/mL (0-900) H 08/28/20 13:29 Total Protein 7.6 g/dL (6.3-8.2) 08/29/20 05:07 Albumin 3.1 g/dL (3.9-5) L 08/29/20 05:07 Albumin/Globulin Ratio 0.7 % 08/29/20 05:07 Lipase 11 units/L (13-60) L 08/28/20 13:29 Procalcitonin 0.11 ng/mL (<0.15) 08/28/20 13:29 Urine Color Yellow (Yellow) 08/28/20 Unknown Urine Turbidity Clear (Clear) 08/28/20 Unknown Urine pH 7.0 (5.0-7.0) 08/28/20 Unknown Ur Specific [place] 1.012 (1.003-1.030) 08/28/20 Unknown Urine Protein 100 mg/dl mg/dL (Negative) 08/28/20 Unknown Urine Glucose (UA) Neg mg/dL (Negative) 08/28/20 Unknown Urine Ketones Neg mg/dL (Negative) 08/28/20 Unknown Urine Blood Neg (Negative) 08/28/20 Unknown Urine Nitrite Neg (Negative) 08/28/20 Unknown Urine Bilirubin Neg (Negative) 08/28/20 Unknown Urine Urobilinogen 4.0 mg/dL (<2.0) 08/28/20 Unknown Ur Leukocyte Esterase Neg (Negative) 08/28/20 Unknown Urine WBC (Auto) 2.0 /HPF (0.0-6.0) 08/28/20 Unknown Urine RBC (Auto) 2.0 /HPF (0.0-6.0) 08/28/20 Unknown U Epithel Cells (Auto) 2.0 /HPF (0-13.0) 08/28/20 Unknown Urine Mucus Few /HPF 08/28/20 Unknown Coronavirus (PCR) Negative (Negative) 08/29/20 Unknown Microbiology: Microbiology 08/28/20 13:29 Peripheral/Venous Blood Culture - Preliminary NO GROWTH AFTER 24 HOURS 08/28/20 13:29 Peripheral/Venous Blood Culture - Preliminary NO GROWTH AFTER 24 HOURS Guzman/IV: Voiding Method Toilet Active Medications - Current Medications Current Medications: Generic Name Dose Route Start Last Admin Trade Name Freq PRN Reason Stop Dose Admin Acetaminophen 650 mg 08/28/20 23:53 Acetaminophen 325 Mg Tab PO Q4H PRN Pain MILD(1-3)/Fever >100.5/NEAL Amlodipine Besylate 10 mg 08/30/20 07:32 Amlodipine 10 Mg Tab PO QDAY JUDY Ascorbic Acid 1,000 mg 08/28/20 23:45 08/29/20 21:01 Ascorbic Acid 500 Mg Tab PO 1,000 mg BID JUDY Administration Cholecalciferol 5,000 unit 08/29/20 10:00 08/29/20 09:24 Cholecalciferol (Vit D3) 5,000 Unit Tab PO 5,000 unit DAILY JUDY Administration Dexamethasone 8 mg 08/28/20 23:45 08/30/20 02:14 Dexamethasone 4 Mg/Ml Vial IV 8 mg Q24H JUDY Administration Enoxaparin Sodium 40 mg 08/29/20 22:00 08/29/20 21:01 Enoxaparin 40 Mg/0.4 Ml Inj SUB-Q 40 mg QDAY@2200 [facility] Administration Protocol Famotidine 20 mg 08/29/20 10:00 08/29/20 09:23 Famotidine 20 Mg/2 Ml Inj IV 20 mg DAILY JUDY Administration Hydralazine HCl 10 mg 08/29/20 00:00 Hydralazine 20 Mg/1 Ml Inj IV Q3H PRN Blood Pressure Hydromorphone HCl 0.5 mg 08/28/20 23:53 Hydromorphone 1 Mg/1 Ml Inj IV Q3H PRN Pain , Severe (7-10) Azithromycin 500 mg in 250 mls @ 250 mls/hr 08/29/20 10:00 08/29/20 09:23 Zithromax/Ns IV 250 mls/hr Q24H JUDY Administration Ceftriaxone Sodium 2 gm in 100 mls @ 200 mls/hr 08/29/20 10:00 08/29/20 09:23 Rocephin/Ns 2 Gm/100 Ml IV 200 mls/hr Q24HR [facility] Administration Protocol Insulin Glargine 10 units 05/22/21 22:00 08/29/20 23:36 Insulin Glargine 100 Units/Ml SUB-Q 10 units QHS JUDY Administration Insulin Human Lispro 0 unit 08/29/20 07:30 08/30/20 08:29 Insulin Lispro 100 Unit/Ml SUB-Q 2 unit ACHS JUDY Administration Protocol Ondansetron HCl 4 mg 08/28/20 23:53 Ondansetron 4 Mg/2 Ml Inj IV Q8H PRN Nausea And Vomiting Oxycodone/Acetaminophen 1 tab 08/28/20 23:53 08/29/20 05:39 Oxycodone /Acetaminophen 5-325mg Tab PO 1 tab Q6H PRN Administration Pain, Moderate (4-6) Sodium Chloride 10 ml 08/29/20 10:00 08/29/20 21:05 Sodium Chloride 0.9% 10 Ml Flush Syringe IV Not Given BID JUDY Sodium Chloride 10 ml 08/28/20 23:53 Sodium Chloride 0.9% 10 Ml Flush Syringe IV PRN PRN LINE FLUSH Valsartan 160 mg 08/29/20 00:00 08/29/20 21:01 Valsartan 160mg Tab PO 160 mg BID JUDY Administration Zinc Sulfate 220 mg 08/28/20 23:45 08/29/20 21:01 Zinc Sulfate 220 Mg Cap PO 220 mg BID JUDY Administration
[2020-08-30] MEDS: cefTRIAXone/NS 2 GM/100 ML 2 GM/100 ML BAG IV SCH (09:41)
[2020-08-30] MEDS ORDERED: POTASSIUM CHLORIDE ER 20 MEQ TAB PO ONE (09:41)
[2020-08-30] MEDS: VALSARTAN 160MG TAB PO SCH ×2 (09:44→21:19)
[2020-08-30] MEDS: amLODIPine 10 MG TAB PO SCH (09:44)
[2020-08-30] MEDS: AZITHROMYCIN/NS 500 MG/250 ML 500 MG/250 ML BAG IV SCH (11:01)
[2020-08-30] MEDS: ZINC SULFATE 220 MG CAP PO SCH ×2 (11:31→21:19)
--- NOTE | 2020-08-30 17:59 | Consultation ---
History of Present Illness - Reason for Consult Consult date: 08/30/20 - History of Present Illness 61-year-old female past medical history hypertension, type 2 diabetes, hyperlipidemia presented to hospital complaining of cough. This began approximate 2 days prior to admission and was associated with myalgias. She also notes that her cough was productive of sputum. She complains of low-grade fever as well. She reports having declined to COVID-19 vaccine. Afebrile since admission with a white count of 18.3. Covid testing negative. MARILIN on admission which is improving. Procalcitonin normal. Blood cultures no growth so far. Currently requiring 4 L nasal cannula. Imaging personally reviewed: Chest x-ray: Patchy bilateral pulmonary opacities Duplex ultrasound: No evidence of DVT. Review of systems: Deferred to reduce to the risk of transmission of COVID-19 Past History Past Medical History: other (See HPI) Past Surgical History: No surgical history Social history: no significant social history Family history: no significant family history Medications and Allergies Allergies Allergy/AdvReac Type Severity Reaction Status Date / Time No Known Allergies Allergy Unverified 08/28/20 12:54 Active Meds: Active Medications Acetaminophen (Acetaminophen 325 Mg Tab) 650 mg PO Q4H PRN PRN Reason: Pain MILD(1-3)/Fever >100.5/NEAL Amlodipine Besylate (Amlodipine 10 Mg Tab) 10 mg PO QDAY [facility] Last Admin: 08/30/20 09:44 Dose: 10 mg Documented by: Ascorbic Acid (Ascorbic Acid 500 Mg Tab) 1,000 mg PO BID [facility] Last Admin: 08/30/20 09:40 Dose: 1,000 mg Documented by: Cholecalciferol (Cholecalciferol (Vit D3) 5,000 Unit Tab) 5,000 unit PO DAILY [facility] Last Admin: 08/30/20 09:40 Dose: 5,000 unit Documented by: Dexamethasone (Dexamethasone 4 Mg/Ml Vial) 8 mg IV Q24H [facility] Last Admin: 08/30/20 02:14 Dose: 8 mg Documented by: Enoxaparin Sodium (Enoxaparin 40 Mg/0.4 Ml Inj) 40 mg SUB-Q QDAY@2200 [facility]; Protocol Last Admin: 08/29/20 21:01 Dose: 40 mg Documented by: Famotidine (Famotidine 20 Mg/2 Ml Inj) 20 mg IV DAILY [facility] Last Admin: 08/30/20 09:40 Dose: 20 mg Documented by: Hydralazine HCl (Hydralazine 20 Mg/1 Ml Inj) 10 mg IV Q3H PRN PRN Reason: Blood Pressure Hydromorphone HCl (Hydromorphone 1 Mg/1 Ml Inj) 0.5 mg IV Q3H PRN PRN Reason: Pain , Severe (7-10) Azithromycin (Zithromax/Ns) 500 mg in 250 mls @ 250 mls/hr IV Q24H [facility] Last Infusion: 08/30/20 12:01 Dose: Infused Documented by: Ceftriaxone Sodium (Rocephin/Ns 2 Gm/100 Ml) 2 gm in 100 mls @ 200 mls/hr IV Q24HR [facility]; Protocol Last Infusion: 08/30/20 10:11 Dose: Infused Documented by: Insulin Glargine (Insulin Glargine 100 Units/Ml) 10 units SUB-Q QHS [facility] Last Admin: 08/29/20 23:36 Dose: 10 units Documented by: Insulin Human Lispro (Insulin Lispro 100 Unit/Ml) 0 unit SUB-Q ACHS [facility]; Protocol Last Admin: 08/30/20 17:28 Dose: 2 unit Documented by: Ondansetron HCl (Ondansetron 4 Mg/2 Ml Inj) 4 mg IV Q8H PRN PRN Reason: Nausea And Vomiting Oxycodone/Acetaminophen (Oxycodone /Acetaminophen 5-325mg Tab) 1 tab PO Q6H PRN PRN Reason: Pain, Moderate (4-6) Last Admin: 08/29/20 05:39 Dose: 1 tab Documented by: Sodium Chloride (Sodium Chloride 0.9% 10 Ml Flush Syringe) 10 ml IV BID [facility] Last Admin: 08/30/20 09:40 Dose: 10 ml Documented by: Sodium Chloride (Sodium Chloride 0.9% 10 Ml Flush Syringe) 10 ml IV PRN PRN PRN Reason: LINE FLUSH Valsartan (Valsartan 160mg Tab) 160 mg PO BID [facility] Last Admin: 08/30/20 09:44 Dose: 160 mg Documented by: Zinc Sulfate (Zinc Sulfate 220 Mg Cap) 220 mg PO BID [facility] Last Admin: 08/30/20 11:31 Dose: 220 mg Documented by: Physical Examination - Physical Exam Narrative exam: Physical exam deferred to reduce risk of transmission of COVID-19. Please refer to primary team's note. - Constitutional Vitals: Vital Signs Temp Pulse Resp BP Pulse Ox 98 F 98 H 18 178/87 95 08/30/20 17:36 08/30/20 17:34 08/30/20 17:36 08/30/20 17:34 08/30/20 17:34 Temperature -Last 24 Hours Temperature 98 F Temperature 98.9 F Temperature 99 F Temperature 99 F Results - Labs CBC & Chem 7: 08/30/20 07:17 08/30/20 07:17 Labs: Abnormal lab results 08/29/20 08/29/20 08/30/20 Range/Units 16:29 21:50 07:17 WBC 18.3 H (4.5-11.0) K/mm3 MCV 77 L (79-97) fl MCH 24 L (28-32) pg RDW 18.9 H (13.2-15.2) % ABG pH (7.320-7.450) POC ABG pCO2 (32.0-48.0) mmHg POC ABG pO2 (83-108) mmHg ABG Hemoglobin (12.0-17.5) ABG Chloride (98-107) mmol/L ABG Glucose (65-95) mg/dL Potassium (3.6-5.0) mmol/L Chloride (98-107) mmol/L BUN (7-17) mg/dL Creatinine (0.6-1.2) mg/dL Glucose (65-100) mg/dL POC Glucose 154 H 166 H (70-105) mg/dL Calcium (8.4-10.2) mg/dL Arterial Blood Glucose (65-95) mg/dL Arterial Blood Ionized Calcium (4.6-5.3) mg/dL 08/30/20 08/30/20 08/30/20 Range/Units 07:17 08:08 11:15 WBC (4.5-11.0) K/mm3 MCV (79-97) fl MCH (28-32) pg RDW (13.2-15.2) % ABG pH (7.320-7.450) POC ABG pCO2 (32.0-48.0) mmHg POC ABG pO2 (83-108) mmHg ABG Hemoglobin (12.0-17.5) ABG Chloride (98-107) mmol/L ABG Glucose (65-95) mg/dL Potassium 3.3 L (3.6-5.0) mmol/L Chloride 107.4 H (98-107) mmol/L BUN 23 H (7-17) mg/dL Creatinine 1.3 H (0.6-1.2) mg/dL Glucose 192 H (65-100) mg/dL POC Glucose 181 H 177 H (70-105) mg/dL Calcium 8.1 L (8.4-10.2) mg/dL Arterial Blood Glucose (65-95) mg/dL Arterial Blood Ionized Calcium (4.6-5.3) mg/dL 08/30/20 08/30/20 Range/Units 15:04 16:57 WBC (4.5-11.0) K/mm3 MCV (79-97) fl MCH (28-32) pg RDW (13.2-15.2) % ABG pH 7.559 H (7.320-7.450) POC ABG pCO2 27.6 L (32.0-48.0) mmHg POC ABG pO2 74.5 L (83-108) mmHg ABG Hemoglobin 10.3 L (12.0-17.5) ABG Chloride 111.0 H (98-107) mmol/L ABG Glucose 211 H (65-95) mg/dL Potassium (3.6-5.0) mmol/L Chloride (98-107) mmol/L BUN (7-17) mg/dL Creatinine (0.6-1.2) mg/dL Glucose (65-100) mg/dL POC Glucose 192 H (70-105) mg/dL Calcium (8.4-10.2) mg/dL Arterial Blood Glucose 211 H (65-95) mg/dL Arterial Blood Ionized Calcium 4.1 L (4.6-5.3) mg/dL Assessment and Plan Cultures: Blood culture no growth so far Covid PCR: Negative A/P: 61-year-old female past medical history hypertension, type 2 diabetes, hyperlipidemia presented to the hospital with bilateral pneumonia #Acute hypoxic respiratory failure: Secondary to multifocal pneumonia. Curre ntly on 4L nasal cannula. #Bilateral pneumonia: Initial Covid PCR negative. With negative procalcitonin and bilateral pneumonia with elevated inflammatory markers, recommend repeat Covid testing. Continue empiric antibiotics for now #Diabetes: tight glycemic control for best outcomes. #MARILIN: Renally dose antibiotics. Recs: -Continue ceftriaxone and azithromycin. Complete 5 days. -Repeat Covid testing -Monitor oxygenation Thank you for the consult, we will continue to follow. Constantino Padgett MD [facility] ([facility] O: [phone] F: [phone]
[2020-08-30] MEDS: hydrALAZINE 20 MG/1 ML INJ IV PRN ×2 (20:18→23:51)
[2020-08-30] MEDS: ENOXAPARIN 40 MG/0.4 ML INJ SUB-Q SCH (21:18)
[2020-08-30] MEDS: INSULIN GLARGINE 100 UNITS/ML SUB-Q SCH (21:20)
[2020-08-30] MEDS ORDERED: ALBUTEROL 2.5 MG/3 ML NEBU IH PRN (21:22)
[2020-08-31] MEDS ORDERED: hydrALAZINE 20 MG/1 ML INJ IV ONE (01:26)
[2020-08-31 08:23] LABS: Basophils % (Auto) 0.2 % (0.0-1.8); Hemoglobin 11.2 gm/dl (10.1-14.3); Lymphocytes # (Auto) 1.4 K/mm3 (1.2-5.4); Lymphocytes % (Auto) 7.7 % (13.4-35.0); Mean Corpuscular HGB Conc 33 % (30-34); Mean Corpuscular Volume 76 fl (79-97); Monocytes # (Auto) 0.7 K/mm3 (0.0-0.8); Monocytes % (Auto) 3.5 % (0.0-7.3); Platelet Count 336 K/mm3 (140-440); Red Blood Count 4.47 M/mm3 (3.65-5.03)
[2020-08-31 09:07] LABS: Calcium 8.3 mg/dL (8.4-10.2)
[2020-08-31] MEDS: INSULIN LISPRO 100 UNIT/ML SUB-Q SCH ×4 (09:11→22:03)
[2020-08-31] MEDS: amLODIPine 10 MG TAB PO SCH (09:12)
[2020-08-31] MEDS: CHOLECALCIFEROL (VIT D3) 5,000 UNIT TAB PO SCH (09:12)
[2020-08-31] MEDS: ZINC SULFATE 220 MG CAP PO SCH ×2 (09:12→22:04)
[2020-08-31] MEDS: ASCORBIC ACID 500 MG TAB PO SCH ×2 (09:12→22:04)
[2020-08-31] MEDS: FAMOTIDINE 20 MG/2 ML INJ IV SCH (09:13)
[2020-08-31] MEDS: cefTRIAXone/NS 2 GM/100 ML 2 GM/100 ML BAG IV SCH (09:13)
[2020-08-31] MEDS: AZITHROMYCIN/NS 500 MG/250 ML 500 MG/250 ML BAG IV SCH (10:36)
--- NOTE | 2020-08-31 11:01 | Progress Note ---
Assessment and Plan Assessment and plan: 60-year-old -[place] female who presents with acute respiratory failure with hypoxemia Assessment and plan 1. Acute respiratory failure with hypoxia Secondary to bilateral pneumonia Continue respiratory support with nasal cannula oxygen, high flow or BiPAP as necessary 2. Bilateral pneumonia, community-acquired pneumonia Patient is Covid negative 08/29/2020 DC Decadron Azithromycin and ceftriaxone ID consult recommended repeat Covid due to patient's low pro-Casimiro and continued oxygen requirements 3. Systemic inflammatory response syndrome Leukocytosis, tachypnea and tachycardia noted 4. Hypokalemia Supplement as needed 5. MARILIN Secondary to vasomotor nephropathy Encourage more oral fluids Could be patient's baseline at this time. 6. Hypertension uncontrolled Valsartan and hydralazine initiated IV hydralazine with parameters 7. Type 2 diabetes As per history Patient takes Lantus 15 units at bedtime hemoglobin A1c 5.4 Accu-Cheks AC at bedtime and coverage 8. DVT prophylaxis Lovenox subcu 40 mg initiated and GI bleed prophylaxis initiated Disposition: Continue to treat for community-acquired pneumonia, wean patient off of oxygen. History Interval history: 08/29/2020: Patient seen and examined, on about 3 L of oxygen, nasal cannula, no acute respiratory distress, urine breathing, denies any chest pain. States that her breathing has improved. 08/30/2020: Patient examined, on 3 L of oxygen, states that she has no chest pain , shortness of breath persists with some ambulation. No nausea vomiting, tolerating diet. 08/31/2020: Patient examined, has facemask oxygen on, oxygen up to 15 L? States that she has been on since last night. Covid test repeated by infectious disease, appreciate recommendations. Patient is not in any acute distress. Hospitalist Physical - Physical exam Narrative exam: General appearance: Obese, no acute distress, well-nourished EENT: PERRL, EOM intact, hearing intact, clear oral mucosa Neck: Present: supple, normal ROM Respiratory: Facemask, right and left lung areas clear to auscultation, patient without respiratory distress, no rales or rhonchi Cardiovascular: Regular rate/rhythm, Normal S1 & S2. No gallop, rub Extremities: no ischemia, No edema, normal temperature, normal color, Full ROM Abdominal: soft, no tenderness, non-distended, normal bowel sounds Integumentary: Present: clear, warm, dry no wounds, no erythema noted Psychiatric: appropriate mood/affect, intact judgment & insight Neurologic: CNII-XII intact, moves all extremities, no sensory or motor abnormalities - Constitutional Vitals: Temp Pulse Resp BP Pulse Ox 98.7 F 108 H 18 142/54 94 08/31/20 05:16 08/31/20 07:27 08/31/20 07:27 08/31/20 05:16 08/31/20 07:27 General appearance: Present: mild distress, well-nourished HEART Score - HEART Score Troponin: Troponin T 0.018 ng/mL (0.00-0.029) 08/28/20 13:29 Results - Labs CBC & Chem 7: 08/31/20 07:59 08/31/20 07:59 Labs: Laboratory Last Values WBC 18.8 K/mm3 (4.5-11.0) H 08/31/20 07:59 RBC 4.47 M/mm3 (3.65-5.03) 08/31/20 07:59 Hgb 11.2 gm/dl (10.1-14.3) 08/31/20 07:59 Hct 34.0 % (30.3-42.9) 08/31/20 07:59 MCV 76 fl (79-97) L 08/31/20 07:59 MCH 25 pg (28-32) L 08/31/20 07:59 MCHC 33 % (30-34) 08/31/20 07:59 RDW 19.0 % (13.2-15.2) H 08/31/20 07:59 Plt Count 336 K/mm3 (140-440) 08/31/20 07:59 Lymph % (Auto) 7.7 % (13.4-35.0) L 08/31/20 07:59 [place] % (Auto) 3.5 % (0.0-7.3) 08/31/20 07:59 Eos % (Auto) 0.0 % (0.0-4.3) 08/31/20 07:59 Baso % (Auto) 0.2 % (0.0-1.8) 08/31/20 07:59 Lymph # (Auto) 1.4 K/mm3 (1.2-5.4) 08/31/20 07:59 [place] # (Auto) 0.7 K/mm3 (0.0-0.8) 08/31/20 07:59 Eos # (Auto) 0.0 K/mm3 (0.0-0.4) 08/31/20 07:59 Baso # (Auto) 0.0 K/mm3 (0.0-0.1) 08/31/20 07:59 Seg Neutrophils % 88.6 % (40.0-70.0) H 08/31/20 07:59 Seg Neutrophils # 16.7 K/mm3 (1.8-7.7) H 08/31/20 07:59 PT 16.0 Sec. (12.2-14.9) H 08/28/20 13:29 INR 1.30 (0.87-1.13) H 08/28/20 13:29 APTT 39.5 Sec. (24.2-36.6) H 08/28/20 13:29 D-Dimer 1604.24 ng/mlDDU (0-234) H 08/28/20 13:29 ABG pH 7.559 (7.320-7.450) H 08/30/20 15:04 POC ABG pCO2 27.6 mmHg (32.0-48.0) L 08/30/20 15:04 ABG pCO2 41.2 mm Hg 08/28/20 Unknown POC ABG pO2 74.5 mmHg (83-108) L 08/30/20 15:04 ABG pO2 74.7 mm Hg (80.0-90.0) L 08/28/20 Unknown POC ABG HCO3 24.1 08/30/20 15:04 ABG HCO3 26.4 mmol/L (20.0-26.0) H 08/28/20 Unknown ABG O2 Saturation 96.1 (0-100) 08/30/20 15:04 ABG O2 Content 12.0 (0.0-44) 08/28/20 Unknown POC ABG Base Excess 2.5 08/30/20 15:04 ABG Base Excess 1.9 mmol/L (-2.0-3.0) 08/28/20 Unknown ABG Hemoglobin 10.3 (12.0-17.5) L 08/30/20 15:04 ABG Oxyhemoglobin 94.7 (94-98) 08/30/20 15:04 ABG Carboxyhemoglobin 2.5 % (0.0-5.0) 08/28/20 Unknown ABG Methemoglobin 0.3 (0.0-1.5) 08/30/20 15:04 ABG Sodium 141.6 mmol/L (136.0-145.0) 08/30/20 15:04 ABG Potassium 3.6 mmol/L (3.40-4.50) 08/30/20 15:04 ABG Chloride 111.0 mmol/L (98-107) H 08/30/20 15:04 ABG Glucose 211 mg/dL (65-95) H 08/30/20 15:04 Oxyhemoglobin 93.3 % (95.0-99.0) L 08/28/20 Unknown Carboxyhemoglobin 1.2 (0.5-1.5) 08/30/20 15:04 FiO2 36 % 08/28/20 Unknown FiO2 % 36.0 08/30/20 15:04 Sodium 145 mmol/L (137-145) 08/31/20 07:59 Potassium 3.9 mmol/L (3.6-5.0) 08/31/20 07:59 Chloride 107.4 mmol/L (98-107) H 08/31/20 07:59 Carbon Dioxide 25 mmol/L (22-30) 08/31/20 07:59 Anion Gap 17 mmol/L 08/31/20 07:59 BUN 23 mg/dL (7-17) H 08/31/20 07:59 Creatinine 1.3 mg/dL (0.6-1.2) H 08/31/20 07:59 Estimated GFR 50 ml/min 08/31/20 07:59 BUN/Creatinine Ratio 18 % 08/31/20 07:59 Glucose 196 mg/dL (65-100) H 08/31/20 07:59 POC Glucose 176 mg/dL (70-105) H 08/31/20 07:10 Hemoglobin A1c 5.4 % (4-6) 08/29/20 05:07 Lactic Acid 1.40 mmol/L (0.7-2.0) 08/28/20 13:29 Calcium 8.3 mg/dL (8.4-10.2) L 08/31/20 07:59 Magnesium 1.50 mg/dL (1.7-2.3) L 08/28/20 13:29 Ferritin 395.2 ng/mL (10.0-200.0) H 08/28/20 13:29 Total Bilirubin 0.30 mg/dL (0.1-1.2) 08/29/20 05:07 Direct Bilirubin < 0.2 mg/dL (0-0.2) 08/28/20 13:29 Indirect Bilirubin 0.2 mg/dL 08/28/20 13:29 AST 10 units/L (5-40) 08/29/20 05:07 ALT 7 units/L (7-56) 08/29/20 05:07 Alkaline Phosphatase 85 units/L (35-129) 08/29/20 05:07 Lactate Dehydrogenase 179 units/L (91-180) 08/28/20 13:29 Lactate Dehydrogenase 179 units/L (91-180) 08/28/20 13:29 Total Creatine Kinase 136 units/L (30-135) H 08/28/20 13:29 CK-MB (CK-2) 1.8 ng/mL (0.0-4.0) 08/28/20 13:29 CK-MB (CK-2) Rel Index 1.3 (0-4) 08/28/20 13:29 Troponin T 0.018 ng/mL (0.00-0.029) 08/28/20 13:29 C-Reactive Protein 9.10 mg/dL (0.00-1.30) H 08/28/20 13:29 C-Reactive Protein 9.10 mg/dL (0.00-1.30) H 08/28/20 13:29 NT-Pro-B Natriuret Pep 3706 pg/mL (0-900) H 08/28/20 13:29 Total Protein 7.6 g/dL (6.3-8.2) 08/29/20 05:07 Albumin 3.1 g/dL (3.9-5) L 08/29/20 05:07 Albumin/Globulin Ratio 0.7 % 08/29/20 05:07 Lipase 11 units/L (13-60) L 08/28/20 13:29 Procalcitonin 0.11 ng/mL (<0.15) 08/28/20 13:29 Arterial Blood Glucose 211 mg/dL (65-95) H 08/30/20 15:04 Arterial Blood Ionized Calcium 4.1 mg/dL (4.6-5.3) L 08/30/20 15:04 Urine Color Yellow (Yellow) 08/28/20 Unknown Urine Turbidity Clear (Clear) 08/28/20 Unknown Urine pH 7.0 (5.0-7.0) 08/28/20 Unknown Ur Specific [place] 1.012 (1.003-1.030) 08/28/20 Unknown Urine Protein 100 mg/dl mg/dL (Negative) 08/28/20 Unknown Urine Glucose (UA) Neg mg/dL (Negative) 08/28/20 Unknown Urine Ketones Neg mg/dL (Negative) 08/28/20 Unknown Urine Blood Neg (Negative) 08/28/20 Unknown Urine Nitrite Neg (Negative) 08/28/20 Unknown Urine Bilirubin Neg (Negative) 08/28/20 Unknown Urine Urobilinogen 4.0 mg/dL (<2.0) 08/28/20 Unknown Ur Leukocyte Esterase Neg (Negative) 08/28/20 Unknown Urine WBC (Auto) 2.0 /HPF (0.0-6.0) 08/28/20 Unknown Urine RBC (Auto) 2.0 /HPF (0.0-6.0) 08/28/20 Unknown U Epithel Cells (Auto) 2.0 /HPF (0-13.0) 08/28/20 Unknown Urine Mucus Few /HPF 08/28/20 Unknown Coronavirus (PCR) Negative (Negative) 08/29/20 Unknown Microbiology: Microbiology 08/28/20 13:29 Peripheral/Venous Blood Culture - Preliminary NO GROWTH AFTER 48 HOURS 08/28/20 13:29 Peripheral/Venous Blood Culture - Preliminary NO GROWTH AFTER 48 HOURS Guzman/IV: Voiding Method Bedside Commode Active Medications - Current Medications Current Medications: Generic Name Dose Route Start Last Admin Trade Name Freq PRN Reason Stop Dose Admin Acetaminophen 650 mg 08/28/20 23:53 Acetaminophen 325 Mg Tab PO Q4H PRN Pain MILD(1-3)/Fever >100.5/NEAL Albuterol 2.5 mg 08/30/20 21:22 08/30/20 21:34 Albuterol 2.5 Mg/3 Ml Nebu IH 2.5 mg Q4HRT PRN Administration Shortness Of Breath Amlodipine Besylate 10 mg 08/30/20 07:32 08/31/20 09:12 Amlodipine 10 Mg Tab PO 10 mg QDAY JUDY Administration Ascorbic Acid 1,000 mg 08/28/20 23:45 08/31/20 09:12 Ascorbic Acid 500 Mg Tab PO 1,000 mg BID JUDY Administration Cholecalciferol 5,000 unit 08/29/20 10:00 08/31/20 09:12 Cholecalciferol (Vit D3) 5,000 Unit Tab PO 5,000 unit DAILY JUDY Administration Dexamethasone 8 mg 08/28/20 23:45 08/30/20 23:45 Dexamethasone 4 Mg/Ml Vial IV 8 mg Q24H JUDY Administration Enoxaparin Sodium 40 mg 08/29/20 22:00 08/30/20 21:18 Enoxaparin 40 Mg/0.4 Ml Inj SUB-Q 40 mg QDAY@2200 JUDY Administration Protocol Famotidine 20 mg 08/29/20 10:00 08/31/20 09:13 Famotidine 20 Mg/2 Ml Inj IV 20 mg DAILY JUDY Administration Hydralazine HCl 10 mg 08/29/20 00:00 08/30/20 23:51 Hydralazine 20 Mg/1 Ml Inj IV 10 mg Q3H PRN Administration Blood Pressure Hydromorphone HCl 0.5 mg 08/28/20 23:53 Hydromorphone 1 Mg/1 Ml Inj IV Q3H PRN Pain , Severe (7-10) Azithromycin 500 mg in 250 mls @ 250 mls/hr 08/29/20 10:00 08/31/20 10:36 Zithromax/Ns IV 250 mls/hr Q24H JUDY Administration Ceftriaxone Sodium 2 gm in 100 mls @ 200 mls/hr 08/29/20 10:00 08/31/20 09:13 Rocephin/Ns 2 Gm/100 Ml IV 200 mls/hr Q24HR JUDY Administration Protocol Insulin Glargine 10 units 08/29/20 22:00 08/30/20 21:20 Insulin Glargine 100 Units/Ml SUB-Q 10 units QHS JUDY Administration Insulin Human Lispro 0 unit 08/29/20 07:30 08/31/20 09:11 Insulin Lispro 100 Unit/Ml SUB-Q 2 unit ACHS JUDY Administration Protocol Ondansetron HCl 4 mg 08/28/20 23:53 Ondansetron 4 Mg/2 Ml Inj IV Q8H PRN Nausea And Vomiting Oxycodone/Acetaminophen 1 tab 08/28/20 23:53 08/29/20 05:39 Oxycodone /Acetaminophen 5-325mg Tab PO 1 tab Q6H PRN Administration Pain, Moderate (4-6) Sodium Chloride 10 ml 08/29/20 10:00 08/31/20 09:13 Sodium Chloride 0.9% 10 Ml Flush Syringe IV 10 ml BID JUDY Administration Sodium Chloride 10 ml 08/28/20 23:53 08/30/20 20:19 Sodium Chloride 0.9% 10 Ml Flush Syringe IV 10 ml PRN PRN Administration LINE FLUSH Valsartan 160 mg 08/29/20 00:00 08/30/20 21:19 Valsartan 160mg Tab PO 160 mg BID JUDY Administration Zinc Sulfate 220 mg 08/28/20 23:45 08/31/20 09:12 Zinc Sulfate 220 Mg Cap PO 220 mg BID JUDY Administration
--- NOTE | 2020-08-31 11:41 | Electrocardiograph Report ---
[facility] Test Date: 2020-08-28 Test Time: 11:52:42 Pat Name: LESLEE HILL Department: Room: A383 Gender: F [place] Bon[place]: WILD : 1960 Requested By: VJ HASSAN Order Number: [id number] Reading MD: Angel Alberto Measurements Intervals [place] Rate: 86 P: 70 AK: 212 QRS: -32 QRSD: 115 T: 37 QT: 431 QTc: 517 Interpretive Statements Sinus rhythm Borderline prolonged AK interval Incomplete left bundle branch block Consider anterior infarct Prolonged QT interval No previous ECG available for comparison Electronically Signed On 08-31-2020 11:41:19 EDT by Angel Alberto
[2020-08-31] MEDS: VALSARTAN 160MG TAB PO SCH ×2 (12:38→22:04)
--- NOTE | 2020-08-31 12:39 | Progress Note ---
Assessment and Plan Cultures: COVID-19 PCR: Negative 08/28/2020 blood culture: No growth A/P: 61-year-old female past medical history hypertension, type 2 diabetes, hyperlipidemia presented to the hospital with bilateral pneumonia #Acute hypoxic respiratory failure: Secondary to multifocal pneumonia. #Bilateral pneumonia: Initial COVID-19 PCR negative. With negative procalcitonin and bilateral pneumonia with elevated inflammatory markers, f/u repeat Covid testing. Continue empiric antibiotics for now #Diabetes: tight glycemic control for best outcomes. #MARILIN: Renally dose antibiotics. Recs: -Continue ceftriaxone and azithromycin. Complete 5 days. -f/u repeat COVID test collected on 08/30/2020, if negative stop steroids -oxygen weaning as tolerated Rosemarie Schwarz MD, FACP [facility] ([facility] O: [phone] F: [phone] Subjective Date of service: 08/31/20 Interval history: No fever. Breathing is better. Remains on oxygen. Objective - Exam Narrative Exam: Physical Exam: Constitutional: Alert, cooperative. No acute distress. Morbidly obese Head, Ears, Nose: Normocephalic, atraumatic. External ears, nose normal Eyes: Conjunctivae/corneas clear. No icterus. No ptosis. Neck: Supple, no meningeal signs Cardiovascular: S1, S2 normal. Respiratory: Bilateral crackles GI: Soft, non-tender; bowel sounds normal. No peritoneal signs Musculoskeletal: No pedal edema, no cyanosis. Skin: No rash or abscess Hem/Lymphatic: No palpable cervical or supraclavicular nodes. No lymphangitis Psych: Mood ok. Affect normal Neurological: Awake, alert, oriented. No gross abnormality - Constitutional Vitals: Vital Signs Temp Pulse Resp BP Pulse Ox 98.7 F 108 H 18 142/54 94 08/31/20 05:16 08/31/20 07:27 08/31/20 07:27 08/31/20 05:16 08/31/20 07:27 Temperature -Last 24 Hours Temperature 98.7 F Temperature 97.8 F Temperature 98.3 F Temperature 98 F Temperature 98.9 F - Labs CBC & Chem 7: 08/31/20 07:59 08/31/20 07:59 Labs: Abnormal lab results 08/30/20 08/30/20 08/30/20 Range/Units 08:08 11:15 15:04 WBC (4.5-11.0) K/mm3 MCV (79-97) fl MCH (28-32) pg RDW (13.2-15.2) % Lymph % (Auto) (13.4-35.0) % Seg Neutrophils % (40.0-70.0) % Seg Neutrophils # (1.8-7.7) K/mm3 ABG pH 7.559 H (7.320-7.450) POC ABG pCO2 27.6 L (32.0-48.0) mmHg POC ABG pO2 74.5 L (83-108) mmHg ABG Hemoglobin 10.3 L (12.0-17.5) ABG Chloride 111.0 H (98-107) mmol/L ABG Glucose 211 H (65-95) mg/dL Chloride (98-107) mmol/L BUN (7-17) mg/dL Creatinine (0.6-1.2) mg/dL Glucose (65-100) mg/dL POC Glucose 181 H 177 H (70-105) mg/dL Calcium (8.4-10.2) mg/dL Arterial Blood Glucose 211 H (65-95) mg/dL Arterial Blood Ionized Calcium 4.1 L (4.6-5.3) mg/dL 08/30/20 08/30/20 08/31/20 Range/Units 16:57 21:09 07:10 WBC (4.5-11.0) K/mm3 MCV (79-97) fl MCH (28-32) pg RDW (13.2-15.2) % Lymph % (Auto) (13.4-35.0) % Seg Neutrophils % (40.0-70.0) % Seg Neutrophils # (1.8-7.7) K/mm3 ABG pH (7.320-7.450) POC ABG pCO2 (32.0-48.0) mmHg POC ABG pO2 (83-108) mmHg ABG Hemoglobin (12.0-17.5) ABG Chloride (98-107) mmol/L ABG Glucose (65-95) mg/dL Chloride (98-107) mmol/L BUN (7-17) mg/dL Creatinine (0.6-1.2) mg/dL Glucose (65-100) mg/dL POC Glucose 192 H 225 H 176 H (70-105) mg/dL Calcium (8.4-10.2) mg/dL Arterial Blood Glucose (65-95) mg/dL Arterial Blood Ionized Calcium (4.6-5.3) mg/dL 08/31/20 08/31/20 08/31/20 Range/Units 07:59 07:59 12:22 WBC 18.8 H (4.5-11.0) K/mm3 MCV 76 L (79-97) fl MCH 25 L (28-32) pg RDW 19.0 H (13.2-15.2) % Lymph % (Auto) 7.7 L (13.4-35.0) % Seg Neutrophils % 88.6 H (40.0-70.0) % Seg Neutrophils # 16.7 H (1.8-7.7) K/mm3 ABG pH (7.320-7.450) POC ABG pCO2 (32.0-48.0) mmHg POC ABG pO2 (83-108) mmHg ABG Hemoglobin (12.0-17.5) ABG Chloride (98-107) mmol/L ABG Glucose (65-95) mg/dL Chloride 107.4 H (98-107) mmol/L BUN 23 H (7-17) mg/dL Creatinine 1.3 H (0.6-1.2) mg/dL Glucose 196 H (65-100) mg/dL POC Glucose 174 H (70-105) mg/dL Calcium 8.3 L (8.4-10.2) mg/dL Arterial Blood Glucose (65-95) mg/dL Arterial Blood Ionized Calcium (4.6-5.3) mg/dL
[2020-08-31] MEDS ORDERED: DEXAMETHASONE 4 MG TAB PO SCH (13:00)
[2020-08-31] MEDS: hydrALAZINE 20 MG/1 ML INJ IV PRN (20:40)
[2020-08-31] MEDS: INSULIN GLARGINE 100 UNITS/ML SUB-Q SCH (22:03)
[2020-08-31] MEDS: ENOXAPARIN 40 MG/0.4 ML INJ SUB-Q SCH (22:04)
[2020-09-01] MEDS: FAMOTIDINE 20 MG/2 ML INJ IV SCH (10:37)
[2020-09-01] MEDS: cefTRIAXone/NS 2 GM/100 ML 2 GM/100 ML BAG IV SCH (10:38)
[2020-09-01] MEDS: amLODIPine 10 MG TAB PO SCH (10:38)
[2020-09-01] MEDS: CHOLECALCIFEROL (VIT D3) 5,000 UNIT TAB PO SCH (10:38)
[2020-09-01] MEDS: VALSARTAN 160MG TAB PO SCH (10:38)
[2020-09-01] MEDS: ZINC SULFATE 220 MG CAP PO SCH (10:38)
[2020-09-01] MEDS: INSULIN LISPRO 100 UNIT/ML SUB-Q SCH ×3 (10:45→16:49)
[2020-09-01] MEDS ORDERED: METOPROLOL TARTRATE 25 MG TAB PO SCH (11:00)
[2020-09-01] MEDS: AZITHROMYCIN/NS 500 MG/250 ML 500 MG/250 ML BAG IV SCH (11:06)
[2020-09-01] MEDS: ASCORBIC ACID 500 MG TAB PO SCH (11:08)
--- NOTE | 2020-09-01 12:01 | Discharge Summary ---
Providers - Providers Date of Admission: 08/28/20 15:27 Attending physician: YONNY SANTACRUZ MD 08/28/20 23:53 Consult to Physician [CONS] Routine Comment: Consulting Provider: JANNETTE MORLEY Physician Instructions: Reason For Exam: Bilateral pneumonia rule out Covid Primary care physician: ETL CONSULTANT Hospitalization Reason for admission: acute respiratory failure with hypoxia Condition: Stable Hospital course: 60-year-old -M[place]ese female who presents with acute respiratory failure with hypoxemia 08/29/2020: Patient seen and examined, on about 3 L of oxygen, nasal cannula, no acute respiratory distress, urine breathing, denies any chest pain. States that her breathing has improved. 08/30/2020: Patient examined, on 3 L of oxygen, states that she has no chest pain, shortness of breath persists with some ambulation. No nausea vomiting, tolerating diet. 08/31/2020: Patient examined, has facemask oxygen on, oxygen up to 15 L? States that she has been on since last night. Covid test repeated by infectious disease, appreciate recommendations. Patient is not in any acute distress. 09/01: Patient this morning is satting 99% on 2 L of oxygen repeat Covid testing was negative steroids was discontinued. Plan is to discharge patient on oral antibiotics. We will have her home O2 evaluation prior to discharge. Assessment and plan 1. Acute respiratory failure with hypoxia Secondary to bilateral pneumonia Continue respiratory support with nasal cannula oxygen, high flow or BiPAP as necessary 2. Bilateral pneumonia, community-acquired pneumonia Patient is Covid negative 08/29/2020 DC Decadron Azithromycin and ceftriaxone ID consult recommended repeat Covid due to patient's low pro-Casimiro and continued oxygen requirements 3. Systemic inflammatory response syndrome Leukocytosis, tachypnea and tachycardia noted 4. Hypokalemia Supplement as needed 5. MARILIN Secondary to vasomotor nephropathy Encourage more oral fluids Could be patient's baseline at this time. 6. Hypertension uncontrolled Valsartan and hydralazine initiated IV hydralazine with parameters 7. Type 2 diabetes As per history Patient takes Lantus 15 units at bedtime hemoglobin A1c 5.4 Accu-Cheks AC at bedtime and coverage Disposition: - TO HOME OR SELFCARE Final Discharge Diagnosis (Prints w/discharge instructions): Acute Respiratory failure with hypoxia Time spent for discharge: 35 mins Core Measure Documentation - Palliative Care Palliative Care/ Comfort Measures: Not Applicable - Core Measures Any of the following diagnoses?: none Exam - Physical Exam Narrative exam: General appearance: Obese, no acute distress, well-nourished EENT: PERRL, EOM intact, hearing intact, clear oral mucosa Neck: Present: supple, normal ROM Respiratory: right and left lung areas clear to auscultation, patient without respiratory distress, no rales or rhonchi Cardiovascular: Regular rate/rhythm, Normal S1 & S2. No gallop, rub Extremities: no ischemia, No edema, normal temperature, normal color, Full ROM Abdominal: soft, no tenderness, non-distended, normal bowel sounds Integumentary: Present: clear, warm, dry no wounds, no erythema noted Psychiatric: appropriate mood/affect, intact judgment & insight Neurologic: CNII-XII intact, moves all extremities, no sensory or motor abnormal ities - Constitutional Vitals: Temp Pulse Resp BP Pulse Ox 97.6 F 88 18 147/69 99 09/01/20 04:38 09/01/20 04:38 09/01/20 04:38 09/01/20 04:38 09/01/20 08:38 Plan Activity: advance as tolerated, fall precautions Diet: low fat Special Instructions: record daily weights, record daily BP diary, home oxygen via (nasal cannula @ 2 liters per minute) Additional Instructions: continue home meds. follow with pcp to repeat renal function test in 3-5 days Follow up with: PRIMARY MD SUZANNE [Primary Care Provider] - 3-5 Days EVI UGARTE MD [Staff Physician] - 7 Days ROSE MARADIAGA MD [Staff Physician] - 7 Days Prescriptions: Azithromycin 500 mg PO BID #10 tablet cefUROXime [Ceftin] 250 mg PO Q12H #10 tablet
[2020-09-01 13:21] VITALS: BP 199/89
--- NOTE | 2020-09-01 14:15 | Progress Note ---
Assessment and Plan Cultures: COVID-19 PCR x 2 negative.: Negative 08/28/2020 blood culture: No growth A/P: 61-year-old female past medical history hypertension, type 2 diabetes, hyperlipidemia presented to the hospital with bilateral pneumonia #Acute hypoxic respiratory failure: Secondary to multifocal pneumonia. #Bilateral pneumonia: COVID-19 PCR negative x 2. With negative procalcitonin, ?other viral pneumonia. #Diabetes: tight glycemic control for best outcomes. #MARILIN: Renally dose antibiotics. Recs: -complete remainder of abx course with PO Ceftin + Azithromycin Rosemarie Schwarz MD, FACP [facility] O: [phone] F: [phone] Subjective Date of service: 09/01/20 Interval history: No fever. Breathing improving. Repeat COVID also negative. Objective - Exam Narrative Exam: Physical Exam: Constitutional: Alert, cooperative. No acute distress. Morbidly obese Head, Ears, Nose: Normocephalic, atraumatic. External ears, nose normal Eyes: Conjunctivae/corneas clear. No icterus. No ptosis. Neck: Supple, no meningeal signs Cardiovascular: S1, S2 normal. Respiratory: improving b/l crackles GI: Soft, non-tender; bowel sounds normal. No peritoneal signs Musculoskeletal: No pedal edema, no cyanosis. Skin: No rash or abscess Hem/Lymphatic: No palpable cervical or supraclavicular nodes. No lymphangitis Psych: Mood ok. Affect normal Neurological: Awake, alert, oriented. No gross abnormality - Constitutional Vitals: Vital Signs Temp Pulse Resp BP Pulse Ox 98.2 F 94 H 22 199/89 90 09/01/20 12:53 09/01/20 12:53 09/01/20 12:53 09/01/20 12:53 09/01/20 12:53 Temperature -Last 24 Hours Temperature 98.2 F Temperature 97.6 F Temperature 98.6 F Temperature 98.0 F - Labs CBC & Chem 7: 08/31/20 07:59 08/31/20 07:59 Labs: Abnormal lab results 08/31/20 08/31/20 09/01/20 Range/Units 16:46 21:08 07:33 POC Glucose 125 H 235 H 170 H (70-105) mg/dL
[2020-09-01 15:00] LABS: Calcium 8.3 mg/dL (8.4-10.2)
== END 2020-09-01 16:30 | disposition home or self-care (01) | DRG 193 ==
LOC: ED 11:19 → 3A 15:27
PROVIDERS: ADMIT Internal Medicine; ATTEND Internal Medicine
PROC: 4A033R1 Measurement of Arterial Saturation, Peripheral, Percutaneous Approach (ICD-10-PCS; principal; 2020-08-30)
DX: J18.9 Pneumonia, unspecified organism (principal); J96.01 Acute respiratory failure with hypoxia; N17.0 Acute kidney failure with tubular necrosis; R65.10 Systemic inflammatory response syndrome (SIRS) of non-infectious origin without acute organ dysfunction; E78.5 Hyperlipidemia, unspecified; D72.829 Elevated white blood cell count, unspecified; R00.0 Tachycardia, unspecified; E87.6 Hypokalemia; E11.9 Type 2 diabetes mellitus without complications; I10 Essential (primary) hypertension; Z20.822 Contact with and (suspected) exposure to COVID-19; Z90.710 Acquired absence of both cervix and uterus; Z87.891 Personal history of nicotine dependence; Z82.49 Family history of ischemic heart disease and other diseases of the circulatory system
CPT/HCPCS: 36415; 36600; 71045; 80048; 80053; 80076; 81001; 82140; 82550; 82553; 82728; 82803; 82805; 82947; 82962; 83036; 83615; 83690; 83735; 83880; 84145; 84484; 85025; 85027; 85379; 85610; 85730; 86140; 87040; 93005; 94640; 96365; 96367; 96375; G0378; J0360; J0456; J0696; J1100; J1650; J1720; J1815; J7030; J8540; U0003

== ENCOUNTER 2021-01-27 04:16 | Inpatient (IN) | payer MEDICARE ==
--- NOTE | 2021-01-27 04:59 | Event Note ---
Date: 01/27/21 The patient was evaluated in the emergency department for symptoms described in the history of present illness. He/she was evaluated in the context of the global COVID-19 pandemic, which necessitated consideration that the patient might be at risk for infection with the virus that causes COVID-19. Institutional protocols and algorithms that pertain to the evaluation of patients at risk for COVID-19 are in a state of rapid change based on information released by regulatory bodies including the CDC and federal and state organizations. These policies and algorithms were followed during the patient's care in the emergency department. Please note that these policies, procedures and recommendations changed on a rapid basis. EMS documentation not available at time of chart dictation Medical screening examination: 60-year-old female, with a past medical history of morbid obesity, acute respiratory failure with hypoxia, bilateral community- acquired pneumonia, hypokalemia, renal insufficiency, hypertension and type 2 diabetes. The patient presents to the ER today with a complaint of feeling swollen, short of breath, and having abdominal distention and tightness. She denies physical pain at this time. She denies fever at this time. On exam, she is awake, appears uncomfortable, has lower extremity edema, and she is morbidly obese. Patient most likely has obstructive sleep apnea, pulmonary hypertension, and probable right-sided cardiac dysfunction. She had negative lower extremity DVT studies in the past at this facility. Place patient on bus driver/monitor. Obtain EKG. Obtain appropriate laboratory studies. Detailed history and physical to follow. Discussed plan of care with the patient. She is agreeable. Vital Signs 01/27/21 04:50 Temperature 99.0 F Pulse Rate 109 H Respiratory 20 Rate Blood Pressure 143/74 O2 Sat by Pulse 100 Oximetry
[2021-01-27 05:33] LABS: Hemoglobin 9.6 gm/dl (10.1-14.3); Mean Corpuscular HGB Conc 33 % (30-34); Mean Corpuscular Volume 76 fl (79-97); Platelet Count 321 K/mm3 (140-440); Red Blood Count 3.82 M/mm3 (3.65-5.03); Red Cell Distribution Width 19.6 % (13.2-15.2)
[2021-01-27] MEDS ORDERED: ACETAMINOPHEN 325 MG TAB PO STA (05:37)
[2021-01-27 05:48] LABS: INR 1.15 (0.87-1.13)
[2021-01-27 05:49] LABS: Partial Thromboplastin Time 41.4 Sec. (24.2-36.6)
--- NOTE | 2021-01-27 05:52 | XRay Report ---
CHEST 1 VIEW 01/27/2021 4:32 AM INDICATION / CLINICAL INFORMATION: Dyspnea. COMPARISON: 08/28/2020 FINDINGS/IMPRESSION: There is a large round density overlying the right hemithorax which may represent a large hiatal trudy ia versus significant pericardial effusion. No focal consolidation of the lungs. Signer Name: Daniele Epps DO Signed: 01/27/2021 5:47 AM Workstation Name: [id number]
--- NOTE | 2021-01-27 06:33 | Emergency Department Report ---
HPI - General Chief Complaint: Abdominal Pain Time Seen by Provider: 01/27/21 06:16 - HPI HPI: Room 2 The patient is a 60-year-old female present with a chief complaint of swelling. Patient states over the past month she has had gradual swelling of bilateral lower extremities and abdomen. Patient admits to shortness of breath and dyspnea on exertion. Patient also admits to orthopnea. Patient denies having chest pain, cough or fever. Patient has not been vaccinated against Covid. Patient states she has noticed an increase in her urinary output. The patient states she is never been diagnosed with congestive heart failure ED Past Medical Hx - Past Medical History Previous Medical History?: Yes Hx Hypertension: Yes Hx Diabetes: Yes Hx Kidney Stones: Yes (CKD nephrology following) Additional medical history: hypothyroidism , high cholesterol - Surgical History Past Surgical History?: Yes Additional Surgical History: hysterectomy - Family History Family history: no significant - Social History Smoking Status: Former Smoker (None for over 10 years) Substance Use Type: None (Denies illicit drug use) - Medications Home Medications: Home Medications Medication Instructions Recorded Confirmed Last Taken Type Azithromycin 500 mg PO BID #10 tablet 09/01/20 Unknown Rx cefUROXime [Ceftin] 250 mg PO Q12H #10 tablet 09/01/20 Unknown Rx ED Review of Systems ROS: Stated complaint: SWELLING IN BOTH LEGS Other details as noted in HPI Constitutional: denies: fever Eyes: denies: eye pain ENT: denies: throat pain Respiratory: shortness of breath, SOB with exertion. denies: cough Cardiovascular: dyspnea on exertion. denies: chest pain Endocrine: no symptoms reported Gastrointestinal: denies: abdominal pain Genitourinary: denies: dysuria Musculoskeletal: denies: back pain Neurological: denies: headache Physical Exam - Physical Exam Vital Signs: Vital Signs 01/27/21 01/27/21 01/27/21 04:50 04:51 05:01 Temperature 99.0 F Pulse Rate 109 H 106 H 102 H Respiratory 20 14 20 Rate Blood Pressure 143/74 O2 Sat by Pulse 100 96 Oximetry 01/27/21 05:15 Temperature Pulse Rate 105 H Respiratory 11 L Rate Blood Pressure 162/73 O2 Sat by Pulse 98 Oximetry Physical Exam: GENERAL: The patient is well-developed well-nourished female lying on stretcher sleeping comfortably awakens easily by voice and light touch.. [] HEENT: Normocephalic. Atraumatic. Extraocular motions are intact. Patient has moist mucous membranes. NECK: Supple. Trachea midline CHEST/LUNGS: Coarse breath sounds. No crackles auscultated. There is no respiratory distress noted. HEART/CARDIOVASCULAR: Regular. There is no tachycardia. There is no gallop rub or murmur. ABDOMEN: Abdomen is soft, nontender. Patient has normal bowel sounds. There is no abdominal distention. SKIN: There is dry hyperpigmented skin to the shins bilaterally. There is 1-2+ bilateral lower extremity pitting edema. There is no diaphoresis. NEURO: The patient is awake, alert, and oriented. The patient is cooperative. The patient has no focal neurologic deficits. The patient has normal speech. GCS 15 MUSCULOSKELETAL: There is no evidence of acute injury. ED Course Vital Signs 01/27/21 01/27/21 01/27/21 04:50 04:51 05:01 Temperature 99.0 F Pulse Rate 109 H 106 H 102 H Respiratory 20 14 20 Rate Blood Pressure 143/74 O2 Sat by Pulse 100 96 Oximetry 01/27/21 05:15 Temperature Pulse Rate 105 H Respiratory 11 L Rate Blood Pressure 162/73 O2 Sat by Pulse 98 Oximetry ED Medical Decision Making - Lab Data Result diagrams: 01/27/21 05:22 01/27/21 05:22 - EKG Data -: EKG Interpreted by Me EKG shows normal: sinus rhythm Rate: tachycardia (104 bpm) - EKG Data When compared to previous EKG there are: no significant change Interpretation: nonspecific ST-T wave ashley (T wave inversion lead aVL) - Radiology Data Radiology results: report reviewed (Chest x-ray, CT chest), image reviewed ( est x-ray, CT chest) interpreted by me: Chest [id number], rotated [facility] [address] [place] [address] X Ray Report Signed Patient: LESLEE HILL MR#: [id number] : 1960 Acct:[id number] Age/Sex: 60 / F ADM Date: 01/27/21 Loc: ED Attending Dr: Ordering Physician: ANGEL SIMON MD Date of Service: 01/27/21 Procedure(s): XR chest 1V ap Accession Number(s): [id number] cc: ANGEL SIMON MD Fluoro Time In Minutes: CHEST 1 VIEW 01/27/2021 4:32 AM INDICATION / CLINICAL INFORMATION: Dyspnea. COMPARISON: 08/28/2020 FINDINGS/IMPRESSION: There is a large round density overlying the right hemithorax which may represent a large hiatal hernia versus significant pericardial effusion. No focal consolidation of the lungs. Signer Name: Daniele Vega DO Signed: 01/27/2021 5:47 AM Workstation Name: [id number] Transcribed By: DONYA Dictated By: DANIELE VEGA DO Electronically Authenticated By: DANIELE VEGA DO Signed Date/Time: 01/27/21546 DD/ 4 TD/TT: Print Cancel [facility] [address] [place] [address] Cat Scan Report Signed Patient: LESLEE HILL MR#: [id number] : 1960 Acct:[id number] Age/Sex: 60 / F ADM Date: 01/27/21 Loc: ED Attending Dr: Ordering Physician: LEONOR SMITH MD Date of Service: 01/27/21 Procedure(s): CT chest wo con Accession Number(s): [id number] cc: LEONOR SMITH MD CT CHEST WITHOUT CONTRAST INDICATION / CLINICAL INFORMATION: Abnormal chest x-ray, shortness of breath. TECHNIQUE: Axial CT images were obtained through the chest without contrast. All CT scans at this location are performed using CT dose reduction for ALARA by means of automated exposure control. COMPARISON: None available. FINDINGS: HEART: There is a moderate pericardial effusion. CORONARY ARTERY CALCIFICATION: None. THORACIC AORTA: No significant abnormality. MEDIASTINUM / DARELL: No significant abnormality. PLEURA: No pleural effusion. No pneumothorax. LUNGS: No acute air space or interstitial disease. Mosaic attenuation pattern of the lungs. ADDITIONAL FINDINGS: None. UPPER ABDOMEN: Right renal cyst. SKELETAL SYSTEM: No significant abnormality. IMPRESSION: 1. Moderate pericardial effusion. 2. Mosaic attenuation pattern of the lungs which can be seen with small airways disease. Signer Name: Daniele Vega DO Signed: 01/27/2021 7:20 AM Workstation Name: [id number] Transcribed By: DONYA Dictated By: DANIELE VEGA DO Electronically Authenticated By: DANIELE VEGA DO Signed Date/Time: 01/27/21719 DD/ 6 TD/TT: Print Cancel - Differential Diagnosis New onset CHF, acute on chronic renal failure, hypoalbuminemia Critical care attestation.: If time is entered above; I have spent that time in minutes in the direct care of this critically ill patient, excluding procedure time. ED Disposition Clinical Impression: Peripheral edema, Acute on chronic renal insufficiency, Shortness of breath, Pericardial effusion Disposition: ADMITTED INPATIENT Is pt being admited?: Yes Does the pt Need Aspirin: No Condition: Fair Instructions: Abdominal Pain (ED) Referrals: PRIMARY CARE, [Referring] - 3-5 Days Time of Disposition: 07:29 (Hospitalist called (Dr Pimentel)) Heart Score - HEART Score History: Slightly suspicious EKG: Non-specific Age: 45-65 Risk factors: > 3 risk factors or hx of atherosclerotic disease Troponin: 1-3x normal limit HEART Score: 5 - EKG Read Time Time EKG Completed: 05:13 EKG Read Time: 05:13
[2021-01-27 06:35] LABS: Albumin 3.6 g/dL (3.9-5); Calcium 8.9 mg/dL (8.4-10.2)
--- NOTE | 2021-01-27 07:25 | Cat Scan Report ---
CT CHEST WITHOUT CONTRAST INDICATION / CLINICAL INFORMATION: Abnormal chest x-ray, shortness of breath. TECHNIQUE: Axial CT images were obtained through the chest without contrast. All CT scans at this [facility] are performed using CT dose reduction for ALARA by means of automated exposure control. COMPARISON: None available. FINDINGS: HEART: There is a moderate pericardial effusion. CORONARY ARTERY CALCIFICATION: None. THORACIC AORTA: No significant abnormality. MEDIASTINUM / DARELL: No significant abnormality. PLEURA: No pleural effusion. No pneumothorax. LUNGS: No acute air space or interstitial disease. Mosaic attenuation pattern of the lungs. ADDITIONAL FINDINGS: None. UPPER ABDOMEN: Right renal cyst. SKELETAL SYSTEM: No significant abnormality. IMPRESSION: 1. Moderate pericardial effusion. 2. Mosaic attenuation pattern of the lungs which can be seen with small airways disease. Signer Name: Daniele Epps DO Signed: 01/27/2021 7:20 AM Workstation Name: [id number]
[2021-01-27 07:55] LABS: Band Neutrophils # (Manual) 0.2 K/mm3; Total Cells Counted 100
[2021-01-27 07:56] LABS: Platelet Estimate Consistent w Auto; RBC Morphology Normal; Toxic Granulation 1+
[2021-01-27] MEDS ORDERED: FAMOTIDINE 20 MG TAB PO PRN (08:50)
[2021-01-27] MEDS ORDERED: ACETAMINOPHEN 325 MG TAB PO PRN (10:00)
[2021-01-27] MEDS ORDERED: ONDANSETRON 4 MG/2 ML INJ IV PRN (10:00)
[2021-01-27] MEDS ORDERED: MORPHINE 4 MG/1 ML INJ IV PRN (10:00)
[2021-01-27] MEDS ORDERED: FAMOTIDINE 10 MG TAB PO PRN (10:00)
[2021-01-27] MEDS ORDERED: DOCUSATE SODIUM 100 MG CAP PO PRN (10:00)
[2021-01-27] MEDS ORDERED: SENNOSIDES 8.6 MG TAB PO PRN (10:00)
[2021-01-27] MEDS ORDERED: DEXTROSE 50% IN WATER (25GM) 50 ML SYRINGE IV PRN (10:00)
[2021-01-27] MEDS: FUROSEMIDE 40 MG/4 ML INJ IV SCH ×2 (10:30→18:30)
[2021-01-27 10:36] LABS: Mean Corpuscular HGB Conc 30 % (30-34); Mean Corpuscular Volume 80 fl (79-97); Red Blood Count 4.25 M/mm3 (3.65-5.03)
[2021-01-27 10:37] LABS: Hematocrit 33.9 % (30.3-42.9); Hemoglobin 10.3 gm/dl (10.1-14.3); Platelet Count 240 K/mm3 (140-440); Red Cell Distribution Width 20.2 % (13.2-15.2)
--- NOTE | 2021-01-27 11:11 | Electrocardiograph Report ---
[facility] Test Date: 2021-01-27 Test Time: 05:13:00 Pat Name: LESLEE HILL Department: Room: [facility] Gender: F Hand Coper: LORENE : 1960 Requested By: ANGEL SIMON Order Number: [id number] Reading MD: Angel Alberto Measurements Intervals [place] Rate: 104 P: 58 SD: 163 QRS: -39 QRSD: 119 T: 107 QT: 387 QTc: 510 Interpretive Statements Sinus tachycardia Incomplete left bundle branch block LVH with secondary repolarization abnormality Prolonged QT interval Compared to ECG 08/28/2020 11:52:42 Rate is faster.otherwise no significant change . Electronically Signed On 01-27-2021 11:11:19 EDT by Angel Alberto
[2021-01-27 11:18] LABS: Chol/HDL Ratio 3.25 %
[2021-01-27 11:25] LABS: Bilirubin,Urine NEG (Negative); Blood,Urine SM (Negative); Color,Urine Yellow (Yellow); Mucus,Urine FEW /HPF; Urobilinogen,Urine < 2.0 mg/dL (<2.0)
[2021-01-27 11:26] LABS: Protein,Urine >500 mg/dL (Negative)
[2021-01-27] MEDS: INSULIN REGULAR, HUMAN 100 UNITS/1 ML SUB-Q SCH ×3 (11:46→21:49)
--- NOTE | 2021-01-27 16:04 | History and Physical Report ---
History of Present Illness Date of examination: 01/27/21 Date of admission: 01/27/21 08:50 Chief complaint: Lower leg swelling History of present illness: Patient is a 60-year-old female with past medical history of hypertension, insulin-dependent diabetes, CKD, hyperlipidemia, and possible hypothyroidism who presented with swelling of bilateral lower extremities and abdomen for approximately 2 weeks. The patient complained about shortness of breath, dyspnea on exertion, and orthopnea. The patient has no history of being diagnosed with heart failure. Patient denied any fevers, chills, nausea, vomiting, chest pain/chest pressure, Covid exposures, recent travel, abdominal pain, or increased volume intake. Past History Past Medical History: diabetes, hypertension, hypothyroidism Past Surgical History: hysterectomy, bowel surgery Social history: lives with family, full code Family history: cancer, diabetes Medications and Allergies Allergies Allergy/AdvReac Type Severity Reaction Status Date / Time No Known Allergies Allergy Verified 01/27/21 10:05 Home Medications Medication Instructions Recorded Confirmed Last Taken Type Enalapril Maleate [Vasotec] 2.5 mg PO BID 01/27/21 01/27/21 Unknown History Furosemide [Lasix] 20 mg PO QDAY 01/27/21 01/27/21 Unknown History Insulin Detemir [Levemir Flextouch] 30 unit SQ QHS 01/27/21 01/27/21 Unknown History Metoprolol Xl [Metoprolol 25 mg PO QDAY 01/27/21 01/27/21 Unknown History SUCCINATE ER TAB] allopurinoL [Zyloprim] 100 mg PO QDAY 01/27/21 01/27/21 Unknown History amLODIPine [Norvasc] 10 mg PO DAILY 01/27/21 01/27/21 Unknown History Active Meds: Active Medications Acetaminophen (Acetaminophen 325 Mg Tab) 650 mg PO Q4H PRN PRN Reason: Pain MILD(1-3)/Fever >100.5/NEAL Hydrocodone Bitart/Acetaminophen (Hydrocodone/Acetaminophen 5-325 Mg Tab) 2 each PO Q6H PRN PRN Reason: Pain, Moderate (4-6) Dextrose (Dextrose 50% In Water (25gm) 50 Ml Syringe) 50 ml IV Q30MIN PRN; Protocol PRN Reason: Hypoglycemia Docusate Sodium (Docusate Sodium 100 Mg Cap) 100 mg PO BID PRN PRN Reason: Constipation Stop: 02/06/21 09:59 Famotidine (Famotidine 10 Mg Tab) 10 mg PO BID PRN PRN Reason: Dyspepsia Furosemide (Furosemide 40 Mg/4 Ml Inj) 40 mg IV 0600,1800 [facility] Last Admin: 01/27/21 10:30 Dose: 40 mg Documented by: Heparin Sodium (Porcine) (Heparin 5,000 Unit/1 Ml Vial) 5,000 unit SUB-Q Q8HR [facility] Insulin Human Regular (Insulin Regular, Human 100 Units/1 Ml) 0 units SUB-Q ACHS [facility]; Protocol Last Admin: 01/27/21 11:46 Dose: Not Given Documented by: Morphine Sulfate (Morphine 4 Mg/1 Ml Inj) 2 mg IV Q4H PRN PRN Reason: Pain , Severe (7-10) Ondansetron HCl (Ondansetron 4 Mg/2 Ml Inj) 4 mg IV Q8H PRN PRN Reason: Nausea And Vomiting Senna (Sennosides 8.6 Mg Tab) 8.6 mg PO Q12HR PRN PRN Reason: Constipation Sodium Chloride (Sodium Chloride 0.9% 10 Ml Flush Syringe) 10 ml IV BID [facility] Last Admin: 01/27/21 10:30 Dose: 10 ml Documented by: Sodium Chloride (Sodium Chloride 0.9% 10 Ml Flush Syringe) 10 ml IV PRN PRN PRN Reason: LINE FLUSH Review of Systems All systems: negative Cardiovascular: orthopnea, shortness of breath, dyspnea on exertion, leg edema Respiratory: shortness of breath Genitourinary Female: dysuria Neurological: weakness Exam - Constitutional Vitals: Temp Pulse Resp BP Pulse Ox 99.0 F 104 H 19 156/67 97 01/27/21 04:50 01/27/21 12:01 01/27/21 12:01 01/27/21 13:01 01/27/21 13:01 General appearance: Present: no acute distress, obese, disheveled, malodorous - EENT Eyes: Present: PERRL, EOM intact ENT: hearing intact, clear oral mucosa, dentition normal - Neck Neck: Present: supple, normal ROM - Respiratory Respiratory effort: normal - Cardiovascular Rhythm: regular Heart Sounds: Present: S1 & S2 - Extremities Extremities: no ischemia, pulses intact, pulses symmetrical, normal temperature Extremity abnormal: edema (2+ pitting edema to lower thighs; pitting edema in lower abdomen/pannus) Peripheral Pulses: within normal limits - Abdominal General gastrointestinal: Present: soft, tender (Tenderness on deep palpation of pannus in the setting of 1+ pitting edema), non-distended, normal bowel sounds Female genitourinary: Present: deferred - Rectal Rectal Exam: deferred - Integumentary Integumentary: Present: warm, dry (Diffuse dryness of bilateral lower leg) - Psychiatric Psychiatric: appropriate mood/affect, cooperative, other (Lacks complete insigh t) - Neurologic Neurologic: CNII-XII intact, moves all extremities - Allied Health Allied health notes reviewed: nursing HEART Score - HEART Score History: Moderately suspicious EKG: Non-specific Age: 45-65 Risk factors: > 3 risk factors or hx of atherosclerotic disease Troponin: Troponin T 0.033 ng/mL (0.00-0.029) H 01/27/21 05:22 Troponin: 1-3x normal limit HEART Score: 6 - Critical Actions Critical Actions: 4-6 pts:12-16.6% risk of adverse cardiac event. Should be admitted Results - Labs CBC & Chem 7: 01/27/21 10:15 01/27/21 05:22 Labs: Laboratory Last Values WBC 22.2 K/mm3 (4.5-11.0) H 01/27/21 10:15 RBC 4.25 M/mm3 (3.65-5.03) 01/27/21 10:15 Hgb 10.3 gm/dl (10.1-14.3) 01/27/21 10:15 Hct 33.9 % (30.3-42.9) 01/27/21 10:15 MCV 80 fl (79-97) 01/27/21 10:15 MCH 24 pg (28-32) L 01/27/21 10:15 MCHC 30 % (30-34) 01/27/21 10:15 RDW 20.2 % (13.2-15.2) H 01/27/21 10:15 Plt Count 240 K/mm3 (140-440) 01/27/21 10:15 Add Manual Diff Complete 01/27/21 05:22 Total Counted 100 01/27/21 05:22 Seg Neuts % (Manual) 90.0 % (40.0-70.0) H 01/27/21 05:22 Band Neutrophils % 1.0 % 01/27/21 05:22 Lymphocytes % (Manual) 7.0 % (13.4-35.0) L 01/27/21 05:22 Monocytes % (Manual) 2.0 % (0.0-7.3) 01/27/21 05:22 Nucleated RBC % Not Reportable 01/27/21 05:22 Seg Neutrophils # Man 19.9 K/mm3 (1.8-7.7) H 01/27/21 05:22 Band Neutrophils # 0.2 K/mm3 01/27/21 05:22 Lymphocytes # (Manual) 1.5 K/mm3 (1.2-5.4) 01/27/21 05:22 Abs React Lymphs (Man) 0.0 K/mm3 01/27/21 05:22 Monocytes # (Manual) 0.4 K/mm3 (0.0-0.8) 01/27/21 05:22 Eosinophils # (Manual) 0.0 K/mm3 (0.0-0.4) 01/27/21 05:22 Basophils # (Manual) 0.0 K/mm3 (0.0-0.1) 01/27/21 05:22 Metamyelocytes # 0.0 K/mm3 01/27/21 05:22 Myelocytes # 0.0 K/mm3 01/27/21 05:22 Promyelocytes # 0.0 K/mm3 01/27/21 05:22 Blast Cells # 0.0 K/mm3 01/27/21 05:22 WBC Morphology Not Reportable 01/27/21 05:22 Hypersegmented Neuts Not Reportable 01/27/21 05:22 Hyposegmented Neuts Not Reportable 01/27/21 05:22 Hypogranular Neuts Not Reportable 01/27/21 05:22 Smudge Cells Not Reportable 01/27/21 05:22 Toxic Granulation 1+ 01/27/21 05:22 Toxic Vacuolation Not Reportable 01/27/21 05:22 Dohle Bodies Not Reportable 01/27/21 05:22 Pelger-Huet Anomaly Not Reportable 01/27/21 05:22 Brando Rods Not Reportable 01/27/21 05:22 Platelet Estimate Consistent w auto 01/27/21 05:22 Clumped Platelets Not Reportable 01/27/21 05:22 Plt Clumps, EDTA Not Reportable 01/27/21 05:22 Large Platelets Not Reportable 01/27/21 05:22 Giant Platelets Not Reportable 01/27/21 05:22 Platelet Satelliting Not Reportable 01/27/21 05:22 Plt Morphology Comment Not Reportable 01/27/21 05:22 RBC Morphology Normal 01/27/21 05:22 Dimorphic RBCs Not Reportable 01/27/21 05:22 Polychromasia Not Reportable 01/27/21 05:22 Hypochromasia Not Reportable 01/27/21 05:22 Poikilocytosis Not Reportable 01/27/21 05:22 Anisocytosis Not Reportable 01/27/21 05:22 Microcytosis Not Reportable 01/27/21 05:22 Macrocytosis Not Reportable 01/27/21 05:22 Spherocytes Not Reportable 01/27/21 05:22 Pappenheimer Bodies Not Reportable 01/27/21 05:22 Sickle Cells Not Reportable 01/27/21 05:22 Target Cells Not Reportable 01/27/21 05:22 Tear Drop Cells Not Reportable 01/27/21 05:22 Ovalocytes Not Reportable 01/27/21 05:22 Helmet Cells Not Reportable 01/27/21 05:22 [place] Bodies Not Reportable 01/27/21 05:22 [place] Rings Not Reportable 01/27/21 05:22 [place] Cells Not Reportable 01/27/21 05:22 Bite Cells Not Reportable 01/27/21 05:22 Crenated Cell Not Reportable 01/27/21 05:22 Elliptocytes Not Reportable 01/27/21 05:22 Acanthocytes (Spur) Not Reportable 01/27/21 05:22 Rouleaux Not Reportable 01/27/21 05:22 Hemoglobin C Crystals Not Reportable 01/27/21 05:22 Schistocytes Not Reportable 01/27/21 05:22 Malaria parasites Not Reportable 01/27/21 05:22 Ry Bodies Not Reportable 01/27/21 05:22 Hem Pathologist Commnt No 01/27/21 05:22 PT 15.9 Sec. (12.2-14.9) H 01/27/21 05:22 INR 1.15 (0.87-1.13) H 01/27/21 05:22 APTT 41.4 Sec. (24.2-36.6) H 01/27/21 05:22 Sodium 142 mmol/L (137-145) 01/27/21 05:22 Potassium 3.5 mmol/L (3.6-5.0) L 01/27/21 05:22 Chloride 108.1 mmol/L (98-107) H 01/27/21 05:22 Carbon Dioxide 21 mmol/L (22-30) L 01/27/21 05:22 Anion Gap 16 mmol/L 01/27/21 05:22 BUN 30 mg/dL (7-17) H 01/27/21 05:22 Creatinine 2.1 mg/dL (0.6-1.2) H 01/27/21 05:22 Estimated GFR 29 ml/min 01/27/21 05:22 BUN/Creatinine Ratio 14 % 01/27/21 05:22 Glucose 142 mg/dL (65-100) H 01/27/21 05:22 POC Glucose 103 mg/dL (70-105) 01/27/21 11:40 Calcium 8.9 mg/dL (8.4-10.2) 01/27/21 05:22 Magnesium 1.80 mg/dL (1.7-2.3) 01/27/21 05:22 Magnesium 1.80 mg/dL (1.7-2.3) 01/27/21 05:22 Total Bilirubin 0.40 mg/dL (0.1-1.2) 01/27/21 05:22 AST 18 units/L (5-40) 01/27/21 05:22 ALT 8 units/L (7-56) 01/27/21 05:22 Alkaline Phosphatase 97 units/L (35-129) 01/27/21 05:22 Total Creatine Kinase 622 units/L (30-135) H 01/27/21 05:22 Troponin T 0.033 ng/mL (0.00-0.029) H 01/27/21 05:22 NT-Pro-B Natriuret Pep 637.6 pg/mL (0-900) 01/27/21 05:22 Total Protein 7.6 g/dL (6.3-8.2) 01/27/21 05: Albumin 3.6 g/dL (3.9-5) L 01/27/21 05: Albumin/Globulin Ratio 0.9 % 01/27/21 05:22 Triglycerides 74 mg/dL (2-149) 01/27/21 05:22 Cholesterol 158 mg/dL (50-199) 01/27/21 05:22 LDL Cholesterol Direct 92 mg/dL (50-130) 01/27/21 05: HDL Cholesterol 51 mg/dL (40-59) 01/27/21 05:22 Cholesterol/HDL Ratio 3.25 % 01/27/21 05: TSH 2.290 mlU/mL (0.270-4.200) 01/27/21 05:22 Urine Color Yellow (Yellow) 01/27/21 11:10 Urine Turbidity Clear (Clear) 01/27/21 11:10 Urine pH 5.0 (5.0-7.0) 01/27/21 11:10 Ur Specific [place] 1.010 (1.003-1.030) 01/27/21 11:10 Urine Protein >500 mg/dL (Negative) 01/27/21 11:10 Urine Glucose (UA) 50 mg/dL (Negative) 01/27/21 11:10 Urine Ketones Neg mg/dL (Negative) 01/27/21 11:10 Urine Blood Sm (Negative) 01/27/21 11:10 Urine Nitrite Neg (Negative) 01/27/21 11:10 Urine Bilirubin Neg (Negative) 01/27/21 11:10 Urine Urobilinogen < 2.0 mg/dL (<2.0) 01/27/21 11:10 Ur Leukocyte Esterase Neg (Negative) 01/27/21 11:10 Urine WBC (Auto) 3.0 /HPF (0.0-6.0) 01/27/21 11:10 Urine RBC (Auto) 4.0 /HPF (0.0-6.0) 01/27/21 11:10 U Epithel Cells (Auto) 2.0 /HPF (0-13.0) 01/27/21 11:10 Urine Mucus Few /HPF 01/27/21 11:10 Assessment and Plan Assessment and plan: Patient is a 60-year-old female with past medical history of hypertension, insulin-dependent diabetes, CKD, hyperlipidemia, and possible hypothyroidism who presented with swelling of bilateral lower extremities and abdomen for approximately 2 weeks. #Possible acute on chronic heart failure -Etiology undetermined -Pro BNP 637 -Chest x-ray revealing diffuse pulmonary edema with interstitial infiltrates -TTE ordered; pending read. Consider cardiology consult based on results. -Starting IV Lasix 40 mg twice daily -Continue daily weights, strict I's/O, fluid restriction 1.5 L/day, and telemetry -Started on cardiac/diabetic diet #Nonanion gap metabolic acidosis -Gap 21 -Likely secondary to volume overload -will continue to monitor #Hypertension -Current blood pressure 150/80 -Continue to hold antihypertensives in the setting of possible heart failure exacerbation -Can restart home antihypertensives once exacerbation resolves #Insulin-dependent diabetes (type II) -Pending hemoglobin A1c -Starting moderate SSI with Accu-Cheks with meals -Blood sugar goal [id number] while inpatient #Possible MARILIN on CKD -Creatinine 2.1 (baseline unknown) -Possibly prerenal/vasomotor -We will monitor creatinine with repeat BMP in a.m. to see if gentle diuresis will improve creatinine function. If creatinine worsens, will consult nephrology. -Renally dose meds and avoid nephrotoxic medications #Possible hypothyroidism -Pending TSH and free T4 -We will continue to follow #Skin breakdown -Wound care consulted for skin evaluation of pannus; appreciate recs #Generalized weakness -Consulting physical therapy and Occupational Therapy; appreciate recs #Discharge planning -Patient presented to emergency room disheveled and covered in old crusted feces -Patient endorses living at home with adult children -Social work consulted; appreciate recs Advance Directives: No VTE prophylaxis?: Chemical Plan of care discussed with patient/family: Yes
[2021-01-27] MEDS: HEPARIN 5,000 UNIT/1 ML VIAL SUB-Q SCH ×2 (17:32→21:51)
[2021-01-27] MEDS: HYDROcodone/ACETAMINOPHEN 5-325 MG TAB PO PRN (19:34)
[2021-01-28] MEDS: HEPARIN 5,000 UNIT/1 ML VIAL SUB-Q SCH ×3 (06:26→22:17)
[2021-01-28] MEDS: FUROSEMIDE 40 MG/4 ML INJ IV SCH (06:26)
[2021-01-28] MEDS: INSULIN REGULAR, HUMAN 100 UNITS/1 ML SUB-Q SCH ×4 (09:31→22:16)
--- NOTE | 2021-01-28 11:57 | Electrocardiograph Report ---
[facility] [place] Test Date: 2021-01-28 Test Time: 07:03:10 Pat Name: LESLEE HILL Department: Room: A457 1 Gender: F [employer] Records Clerk: FINA : 1960 Requested By: LEONIE NAQVI Order Number: [id number] Reading MD: Ameya Rouse Measurements Intervals Romeo Rate: 96 P: 66 MT: 179 QRS: -40 QRSD: 119 T: 106 QT: 410 QTc: 519 Interpretive Statements Sinus rhythm Nonspecific IVCD with LAD LVH with secondary repolarization abnormality lafb Compared to ECG 01/27/2021 05:13:00 Intraventricular conduction delay now present Sinus tachycardia no longer present Left bundle-branch block no longer present Electronically Signed On 01-28-2021 11:57:02 EDT by Ameya Rouse
--- NOTE | 2021-01-28 12:55 | Progress Note ---
Assessment and Plan Assessment and plan: Patient is a 60-year-old female with past medical history of hypertension, insulin-dependent diabetes, CKD, hyperlipidemia, and possible hypothyroidism who presented with swelling of bilateral lower extremities and abdomen for approximately 2 weeks. #Acute on chronic diastolic heart failure exacerbation #Mild diastolic heart failure -Etiology undetermined -Pro BNP 637 -Chest x-ray revealing diffuse pulmonary edema with interstitial infiltrates -TTE reveals mild diastolic heart failure with EF 55-60% -Continue IV Lasix 40 mg twice daily -Continue daily weights, strict I's/O, fluid restriction 1.5 L/day, and telemetry -Continue on cardiac/diabetic diet #Nonanion gap metabolic acidosis -Gap 21; pending repeat labs -Likely secondary to volume overload -will continue to monitor #Hypertension -Current blood pressure 150/80 -Restarting home antihypertensives: Amlodipine 10 mg daily, metoprolol succinate 25 mg daily. Holding enalapril 2.5 mg in the setting of possible MARILIN. Can consider restarting enalapril prior to discharge. #Insulin-dependent diabetes (type II) -Pending hemoglobin A1c -Starting moderate SSI with Accu-Cheks with meals -Blood sugar goal [id number] while inpatient #Possible MARILIN on CKD -Creatinine 2.1 (baseline unknown) -Possibly prerenal/vasomotor -We will monitor creatinine with repeat BMP in a.m. to see if gentle diuresis will improve creatinine function. If creatinine worsens, will consult nephrology. -Renally dose meds and avoid nephrotoxic medications #Cutaneous candidiasis -Currently present under abdominal pannus and extending to bilateral upper thighs -Ordering ketoconazole cream to be applied to affected areas -Continue to monitor #Possible hypothyroidism-resolved -Pending TSH 3.33, free T4 1.113 -We will continue to follow #Skin breakdown -Wound care consulted for skin evaluation of pannus; appreciate recs #Generalized weakness -Consulting physical therapy and Occupational Therapy; appreciate recs #Discharge planning -Patient presented to emergency room disheveled and covered in old crusted feces -Patient endorses living at home with adult children -Social work consulted; appreciate recs Disposition Plan: Continue medical management Total Time Spent with Patient (Minutes): 30 History Interval history: No acute events overnight. Hospitalist Physical - Constitutional Vitals: Temp Pulse Resp BP Pulse Ox 98.7 F 95 H 18 165/77 95 01/28/21 11:44 01/28/21 11:44 01/28/21 11:44 01/28/21 11:44 01/28/21 11:44 General appearance: Present: no acute distress, obese, disheveled, malodorous - EENT Eyes: Present: PERRL, EOM intact ENT: hearing intact, clear oral mucosa, dentition normal - Neck Neck: Present: supple, normal ROM - Respiratory Respiratory effort: normal - Cardiovascular Rhythm: regular Heart Sounds: Present: S1 & S2 - Extremities Extremities: no ischemia, pulses intact, pulses symmetrical, normal temperature Extremity abnormal: edema (1+ pitting edema to bilateral shins; 2+ pitting edema under abdominal pannus) Peripheral Pulses: within normal limits - Abdominal General gastrointestinal: soft, non-distended, normal bowel sounds - Integumentary Integumentary: Present: warm, dry, rash (Extensive fungal rash under pannus and extending to upper bilateral thighs) - Psychiatric Psychiatric: appropriate mood/affect, cooperative, other (Limited insight of medical condition) - Neurologic Neurologic: CNII-XII intact - Allied Health Allied health notes reviewed: nursing HEART Score - HEART Score EKG: Non-specific Age: 45-65 Risk factors: > 3 risk factors or hx of atherosclerotic disease Troponin: Troponin T 0.033 ng/mL (0.00-0.029) H 01/27/21 05:22 Troponin: 1-3x normal limit - Critical Actions Critical Actions: 4-6 pts:12-16.6% risk of adverse cardiac event. Should be admitted Results - Labs CBC & Chem 7: 01/27/21 10:15 01/27/21 05:22 Labs: Laboratory Last Values WBC 22.2 K/mm3 (4.5-11.0) H 01/27/21 10:15 RBC 4.25 M/mm3 (3.65-5.03) 01/27/21 10:15 Hgb 10.3 gm/dl (10.1-14.3) 01/27/21 10:15 Hct 33.9 % (30.3-42.9) 01/27/21 10:15 MCV 80 fl (79-97) 01/27/21 10:15 MCH 24 pg (28-32) L 01/27/21 10:15 MCHC 30 % (30-34) 01/27/21 10:15 RDW 20.2 % (13.2-15.2) H 01/27/21 10:15 Plt Count 240 K/mm3 (140-440) 01/27/21 10:15 Add Manual Diff Complete 01/27/21 05:22 Total Counted 100 01/27/21 05:22 Seg Neuts % (Manual) 90.0 % (40.0-70.0) H 01/27/21 05:22 Band Neutrophils % 1.0 % 01/27/21 05:22 Lymphocytes % (Manual) 7.0 % (13.4-35.0) L 01/27/21 05:22 Monocytes % (Manual) 2.0 % (0.0-7.3) 01/27/21 05:22 Nucleated RBC % Not Reportable 01/27/21 05:22 Seg Neutrophils # Man 19.9 K/mm3 (1.8-7.7) H 01/27/21 05:22 Band Neutrophils # 0.2 K/mm3 01/27/21 05:22 Lymphocytes # (Manual) 1.5 K/mm3 (1.2-5.4) 01/27/21 05:22 Abs React Lymphs (Man) 0.0 K/mm3 01/27/21 05:22 Monocytes # (Manual) 0.4 K/mm3 (0.0-0.8) 01/27/21 05:22 Eosinophils # (Manual) 0.0 K/mm3 (0.0-0.4) 01/27/21 05:22 Basophils # (Manual) 0.0 K/mm3 (0.0-0.1) 01/27/21 05:22 Metamyelocytes # 0.0 K/mm3 01/27/21 05:22 Myelocytes # 0.0 K/mm3 01/27/21 05:22 Promyelocytes # 0.0 K/mm3 01/27/21 05:22 Blast Cells # 0.0 K/mm3 01/27/21 05:22 WBC Morphology Not Reportable 01/27/21 05:22 Hypersegmented Neuts Not Reportable 01/27/21 05:22 Hyposegmented Neuts Not Reportable 01/27/21 05:22 Hypogranular Neuts Not Reportable 01/27/21 05:22 Smudge Cells Not Reportable 01/27/21 05:22 Toxic Granulation 1+ 01/27/21 05:22 Toxic Vacuolation Not Reportable 01/27/21 05:22 Dohle Bodies Not Reportable 01/27/21 05:22 Pelger-Huet Anomaly Not Reportable 01/27/21 05:22 Brando Rods Not Reportable 01/27/21 05:22 Platelet Estimate Consistent w auto 01/27/21 05:22 Clumped Platelets Not Reportable 01/27/21 05:22 Plt Clumps, EDTA Not Reportable 01/27/21 05:22 Large Platelets Not Reportable 01/27/21 05:22 Giant Platelets Not Reportable 01/27/21 05:22 Platelet Satelliting Not Reportable 01/27/21 05:22 Plt Morphology Comment Not Reportable 01/27/21 05:22 RBC Morphology Normal 01/27/21 05:22 Dimorphic RBCs Not Reportable 01/27/21 05:22 Polychromasia Not Reportable 01/27/21 05:22 Hypochromasia Not Reportable 01/27/21 05:22 Poikilocytosis Not Reportable 01/27/21 05:22 Anisocytosis Not Reportable 01/27/21 05:22 Microcytosis Not Reportable 01/27/21 05:22 Macrocytosis Not Reportable 01/27/21 05:22 Spherocytes Not Reportable 01/27/21 05:22 Pappenheimer Bodies Not Reportable 01/27/21 05:22 Sickle Cells Not Reportable 01/27/21 05:22 Target Cells Not Reportable 01/27/21 05:22 Tear Drop Cells Not Reportable 01/27/21 05:22 Ovalocytes Not Reportable 01/27/21 05:22 Helmet Cells Not Reportable 01/27/21 05:22 Alvares-Lindy Bodies Not Reportable 01/27/21 05:22 Thaxton Rings Not Reportable 01/27/21 05:22 Eudora Cells Not Reportable 01/27/21 05:22 Bite Cells Not Reportable 01/27/21 05:22 Crenated Cell Not Reportable 01/27/21 05:22 Elliptocytes Not Reportable 01/27/21 05:22 Acanthocytes (Spur) Not Reportable 01/27/21 05:22 Rouleaux Not Reportable 01/27/21 05:22 Hemoglobin C Crystals Not Reportable 01/27/21 05:22 Schistocytes Not Reportable 01/27/21 05:22 Malaria parasites Not Reportable 01/27/21 05:22 Ry Bodies Not Reportable 01/27/21 05:22 Hem Pathologist Commnt No 01/27/21 05:22 PT 15.9 Sec. (12.2-14.9) H 01/27/21 05:22 INR 1.15 (0.87-1.13) H 01/27/21 05:22 APTT 41.4 Sec. (24.2-36.6) H 01/27/21 05:22 Sodium 142 mmol/L (137-145) 01/27/21 05:22 Potassium 3.5 mmol/L (3.6-5.0) L 01/27/21 05:22 Chloride 108.1 mmol/L (98-107) H 01/27/21 05:22 Carbon Dioxide 21 mmol/L (22-30) L 01/27/21 05:22 Anion Gap 16 mmol/L 01/27/21 05:22 BUN 30 mg/dL (7-17) H 01/27/21 05:22 Creatinine 2.1 mg/dL (0.6-1.2) H 01/27/21 05:22 Estimated GFR 29 ml/min 01/27/21 05:22 BUN/Creatinine Ratio 14 % 01/27/21 05:22 Glucose 142 mg/dL (65-100) H 01/27/21 05:22 POC Glucose 84 mg/dL (70-105) 01/28/21 12:02 Calcium 8.9 mg/dL (8.4-10.2) 01/27/21 05:22 Magnesium 1.80 mg/dL (1.7-2.3) 01/27/21 05:22 Magnesium 1.80 mg/dL (1.7-2.3) 01/27/21 05:22 Total Bilirubin 0.40 mg/dL (0.1-1.2) 01/27/21 05:22 AST 18 units/L (5-40) 01/27/21 05:22 ALT 8 units/L (7-56) 01/27/21 05:22 Alkaline Phosphatase 97 units/L (35-129) 01/27/21 05:22 Total Creatine Kinase 622 units/L (30-135) H 01/27/21 05:22 Troponin T 0.033 ng/mL (0.00-0.029) H 01/27/21 05:22 NT-Pro-B Natriuret Pep 637.6 pg/mL (0-900) 01/27/21 05:22 Total Protein 7.6 g/dL (6.3-8.2) 01/27/21 05:22 Albumin 3.6 g/dL (3.9-5) L 01/27/21 05:22 Albumin/Globulin Ratio 0.9 % 01/27/21 05:22 Triglycerides 74 mg/dL (2-149) 01/27/21 05:22 Cholesterol 158 mg/dL (50-199) 01/27/21 05:22 LDL Cholesterol Direct 92 mg/dL (50-130) 01/27/21 05:22 HDL Cholesterol 51 mg/dL (40-59) 01/27/21 05:22 Cholesterol/HDL Ratio 3.25 % 01/27/21 05:22 TSH 3.330 mlU/mL (0.270-4.200) 01/28/21 05:28 Free T4 1.13 ng/dL (0.76-1.46) 01/28/21 05:28 Urine Color Yellow (Yellow) 01/27/21 11:10 Urine Turbidity Clear (Clear) 01/27/21 11:10 Urine pH 5.0 (5.0-7.0) 01/27/21 11:10 Ur Specific Lena 1.010 (1.003-1.030) 01/27/21 11:10 Urine Protein >500 mg/dL (Negative) 01/27/21 11:10 Urine Glucose (UA) 50 mg/dL (Negative) 01/27/21 11:10 Urine Ketones Neg mg/dL (Negative) 01/27/21 11:10 Urine Blood Sm (Negative) 01/27/21 11:10 Urine Nitrite Neg (Negative) 01/27/21 11:10 Urine Bilirubin Neg (Negative) 01/27/21 11:10 Urine Urobilinogen < 2.0 mg/dL (<2.0) 01/27/21 11:10 Ur Leukocyte Esterase Neg (Negative) 01/27/21 11:10 Urine WBC (Auto) 3.0 /HPF (0.0-6.0) 01/27/21 11:10 Urine RBC (Auto) 4.0 /HPF (0.0-6.0) 01/27/21 11:10 U Epithel Cells (Auto) 2.0 /HPF (0-13.0) 01/27/21 11:10 Urine Mucus Few /HPF 01/27/21 11:10 Microbiology: Microbiology 01/27/21 13:10 Urine,Catheterized - Straight Catheter Urine Culture - Preliminary NO GROWTH AFTER 24 HOURS Guzman/IV: Voiding Method Indwelling Catheter Active Medications - Current Medications Current Medications: Generic Name Dose Route Start Last Admin Trade Name Freq PRN Reason Stop Dose Admin Acetaminophen 650 mg 01/27/21 10:00 Acetaminophen 325 Mg Tab PO Q4H PRN Pain MILD(1-3)/Fever >100.5/NEAL Hydrocodone Bitart/Acetaminophen 2 each 01/27/21 10:00 01/27/21 19:34 Hydrocodone/Acetaminophen 5-325 Mg Tab PO 2 each Q6H PRN Administration Pain, Moderate (4-6) Dextrose 50 ml 01/27/21 10:00 Dextrose 50% In Water (25gm) 50 Ml Syringe IV Q30MIN PRN Hypoglycemia Protocol Docusate Sodium 100 mg 01/27/21 10:00 Docusate Sodium 100 Mg Cap PO 02/06/21 09:59 BID PRN Constipation Famotidine 10 mg 01/27/21 10:00 Famotidine 10 Mg Tab PO BID PRN Dyspepsia Furosemide 40 mg 01/27/21 10:00 01/28/21 06:26 Furosemide 40 Mg/4 Ml Inj IV 40 mg 0600,1800 JUDY Administration Heparin Sodium (Porcine) 5,000 unit 01/27/21 14:00 01/28/21 06:26 Heparin 5,000 Unit/1 Ml Vial SUB-Q 5,000 unit Q8HR JUDY Administration Insulin Human Regular 0 units 01/27/21 11:30 01/28/21 12:22 Insulin Regular, Human 100 Units/1 Ml SUB-Q Not Given ACHS JUDY Protocol Morphine Sulfate 2 mg 01/27/21 10:00 Morphine 4 Mg/1 Ml Inj IV Q4H PRN Pain , Severe (7-10) Ondansetron HCl 4 mg 01/27/21 10:00 Ondansetron 4 Mg/2 Ml Inj IV Q8H PRN Nausea And Vomiting Senna 8.6 mg 01/27/21 10:00 Sennosides 8.6 Mg Tab PO Q12HR PRN Constipation Sodium Chloride 10 ml 01/27/21 10:00 01/28/21 09:32 Sodium Chloride 0.9% 10 Ml Flush Syringe IV 10 ml BID JUDY Administration Sodium Chloride 10 ml 01/27/21 10:00 Sodium Chloride 0.9% 10 Ml Flush Syringe IV PRN PRN LINE FLUSH
[2021-01-28 14:24] LABS: Calcium 8.3 mg/dL (8.4-10.2)
[2021-01-28] MEDS: KETOCONAZOLE 2% CREAM 15 GM TP SCH ×2 (14:39→22:17)
[2021-01-28] MEDS: HYDROcodone/ACETAMINOPHEN 5-325 MG TAB PO PRN (15:09)
[2021-01-28] MEDS: LACTATED RINGERS 1,000 ML IV SCH (16:57)
[2021-01-28] MEDS ORDERED: CALCIUM GLUCONATE 1,000 MG in SODIUM CHLORIDE 0.9% 100 ML IV ONE (17:00)
[2021-01-28] MEDS ORDERED: MAGNESIUM SULFATE 1 GM in SODIUM CHLORIDE 0.9% 50 ML IV ONE (17:00)
[2021-01-28 17:17] LABS: Hemoglobin 9.5 gm/dl (10.1-14.3); Mean Corpuscular HGB Conc 33 % (30-34); Mean Corpuscular Volume 77 fl (79-97); Platelet Count 302 K/mm3 (140-440); Red Blood Count 3.78 M/mm3 (3.65-5.03); Red Cell Distribution Width 19.4 % (13.2-15.2)
[2021-01-28] MEDS ORDERED: POTASSIUM CHLORIDE ER 20 MEQ TAB PO SCH (17:30)
[2021-01-29] MEDS: LACTATED RINGERS 1,000 ML IV SCH ×2 (05:54→16:27)
[2021-01-29] MEDS: HEPARIN 5,000 UNIT/1 ML VIAL SUB-Q SCH ×3 (05:54→21:28)
[2021-01-29] MEDS: HYDROcodone/ACETAMINOPHEN 5-325 MG TAB PO PRN (06:03)
[2021-01-29 06:28] LABS: Basophils % (Auto) 0.2 % (0.0-1.8); Eosinophils # (Auto) 0.4 K/mm3 (0.0-0.4); Eosinophils % (Auto) 2.7 % (0.0-4.3); Hematocrit 27.7 % (30.3-42.9); Hemoglobin 8.6 gm/dl (10.1-14.3); Lymphocytes # (Auto) 2.5 K/mm3 (1.2-5.4); Lymphocytes % (Auto) 15.5 % (13.4-35.0); Mean Corpuscular HGB Conc 31 % (30-34); Mean Corpuscular Volume 77 fl (79-97); Monocytes # (Auto) 1.2 K/mm3 (0.0-0.8); Monocytes % (Auto) 7.3 % (0.0-7.3); Platelet Count 314 K/mm3 (140-440); Red Blood Count 3.58 M/mm3 (3.65-5.03); Red Cell Distribution Width 19.3 % (13.2-15.2)
[2021-01-29 06:44] LABS: Calcium 8.4 mg/dL (8.4-10.2)
[2021-01-29] MEDS: INSULIN REGULAR, HUMAN 100 UNITS/1 ML SUB-Q SCH ×4 (07:37→21:28)
[2021-01-29] MEDS ORDERED: POTASSIUM CHLORIDE ER 20 MEQ TAB PO SCH (08:00)
[2021-01-29] MEDS: KETOCONAZOLE 2% CREAM 15 GM TP SCH ×2 (09:16→21:34)
[2021-01-29] MEDS: FUROSEMIDE 40 MG TAB PO SCH (09:16)
[2021-01-29] MEDS ORDERED: FLU VACC QUAD 2021-22(6MOS UP)/PF 60 MCG/0.5 ML SYRINGE IM ONE (12:00)
--- NOTE | 2021-01-29 13:27 | Progress Note ---
Assessment and Plan Assessment and plan: Patient is a 60-year-old female with past medical history of hypertension, insulin-dependent diabetes, CKD, hyperlipidemia, and possible hypothyroidism who presented with swelling of bilateral lower extremities and abdomen for approximately 2 weeks. #Acute on chronic diastolic heart failure exacerbation-resolved #Mild diastolic heart failure -Etiology undetermined -Pro BNP 637 -Chest x-ray revealing diffuse pulmonary edema with interstitial infiltrates -TTE reveals mild diastolic heart failure with EF 55-60% -Continue IV Lasix 40 mg twice daily -Continue daily weights, strict I's/O, fluid restriction 1.5 L/day, and telemetry -Continue on cardiac/diabetic diet #Nonanion gap metabolic acidosis-resolved -Gap 21 -Likely secondary to volume overload -will continue to monitor #Hypertension -Current blood pressure 150/80 -Restarting home antihypertensives: Amlodipine 10 mg daily, metoprolol succinate 25 mg daily. Holding enalapril 2.5 mg in the setting of possible MARILIN. Can consider restarting enalapril prior to discharge. #Insulin-dependent diabetes (type II) -Pending hemoglobin A1c -Starting moderate SSI with Accu-Cheks with meals -Blood sugar goal [id number] while inpatient #CKD stage IV -Creatinine 2.1 (baseline unknown) -Chronic kidney disease likely secondary to uncontrolled hypertension in the setting of insulin-dependent diabetes. Should follow with nephrology in outpatient setting. -Renally dose meds and avoid nephrotoxic medications #Cutaneous candidiasis -Currently present under abdominal pannus and extending to bilateral upper thighs -Continue ketoconazole cream to be applied to affected areas -Continue to monitor #Possible hypothyroidism-resolved -Pending TSH 3.33, free T4 1.113 -We will continue to follow #Skin breakdown -Wound care consulted for skin evaluation of pannus; appreciate recs #Generalized weakness -Consulting physical therapy and Occupational Therapy; appreciate recs -Patient would require 24-hour care at home or SNF. Case management currently working on SNF placement. #Discharge planning -Patient presented to emergency room disheveled and covered in old crusted feces. Patient endorses living at home with adult children -Social work consulted; appreciate recs -Discharge will be to SNF versus home with home health Disposition Plan: Pending upcoming discharge based on SNF approval Total Time Spent with Patient (Minutes): 35 History Interval history: No acute events over night. The patient denies fevers, chills, nausea, vomiting, abdominal pain, chest pain/pressure, shortness of breath, urinary symptoms, weakness, or confusion. Hospitalist Physical - Constitutional Vitals: Temp Pulse Resp BP Pulse Ox 98.4 F 88 20 152/68 88 01/29/21 07:44 01/29/21 07:44 01/29/21 07:44 01/29/21 07:44 01/29/21 07:44 General appearance: Present: no acute distress, obese, disheveled - EENT Eyes: Present: PERRL, EOM intact ENT: hearing intact, clear oral mucosa, dentition normal - Neck Neck: Present: supple, normal ROM - Respiratory Respiratory effort: normal - Cardiovascular Rhythm: regular Heart Sounds: Present: S1 & S2 - Extremities Extremities: no ischemia, pulses intact, pulses symmetrical, normal temperature, normal color Extremity abnormal: edema (1+ pitting edema and bilateral lower extremities. 1+ pitting edema on distal pannus.) Peripheral Pulses: within normal limits - Abdominal General gastrointestinal: soft, non-distended, normal bowel sounds - Integumentary Integumentary: Present: clear, warm, dry (Diffuse, scaled dry skin on anterior shins.) - Psychiatric Psychiatric: appropriate mood/affect, memory intact, cooperative - Neurologic Neurologic: CNII-XII intact, moves all extremities, other (Significant generalized weakness) - Allied Health Allied health notes reviewed: nursing HEART Score - HEART Score EKG: Non-specific Age: 45-65 Risk factors: > 3 risk factors or hx of atherosclerotic disease Troponin: Troponin T 0.033 ng/mL (0.00-0.029) H 01/27/21 05:22 Troponin: 1-3x normal limit - Critical Actions Critical Actions: 4-6 pts:12-16.6% risk of adverse cardiac event. Should be admitted Results - Labs CBC & Chem 7: 01/29/21 04:18 01/29/21 04:18 Labs: Laboratory Last Values WBC 16.3 K/mm3 (4.5-11.0) H 01/29/21 04:18 RBC 3.58 M/mm3 (3.65-5.03) L 01/29/21 04:18 Hgb 8.6 gm/dl (10.1-14.3) L 01/29/21 04:18 Hct 27.7 % (30.3-42.9) L 01/29/21 04:18 MCV 77 fl (79-97) L 01/29/21 04:18 MCH 24 pg (28-32) L 01/29/21 04:18 MCHC 31 % (30-34) 01/29/21 04:18 RDW 19.3 % (13.2-15.2) H 01/29/21 04:18 Plt Count 314 K/mm3 (140-440) 01/29/21 04:18 Lymph % (Auto) 15.5 % (13.4-35.0) 01/29/21 04:18 [place] % (Auto) 7.3 % (0.0-7.3) 01/29/21 04:18 Eos % (Auto) 2.7 % (0.0-4.3) 01/29/21 04:18 Baso % (Auto) 0.2 % (0.0-1.8) 01/29/21 04:18 Lymph # (Auto) 2.5 K/mm3 (1.2-5.4) 01/29/21 04:18 [place] # (Auto) 1.2 K/mm3 (0.0-0.8) H 01/29/21 04:18 Eos # (Auto) 0.4 K/mm3 (0.0-0.4) 01/29/21 04:18 Baso # (Auto) 0.0 K/mm3 (0.0-0.1) 01/29/21 04:18 Add Manual Diff Complete 01/27/21 05:22 Total Counted 100 01/27/21 05:22 Seg Neutrophils % 74.3 % (40.0-70.0) H 01/29/21 04:18 Seg Neuts % (Manual) 90.0 % (40.0-70.0) H 01/27/21 05:22 Band Neutrophils % 1.0 % 01/27/21 05:22 Lymphocytes % (Manual) 7.0 % (13.4-35.0) L 01/27/21 05:22 Monocytes % (Manual) 2.0 % (0.0-7.3) 01/27/21 05:22 Nucleated RBC % Not Reportable 01/27/21 05:22 Seg Neutrophils # 12.1 K/mm3 (1.8-7.7) H 01/29/21 04:18 Seg Neutrophils # Man 19.9 K/mm3 (1.8-7.7) H 01/27/21 05:22 Band Neutrophils # 0.2 K/mm3 01/27/21 05:22 Lymphocytes # (Manual) 1.5 K/mm3 (1.2-5.4) 01/27/21 05:22 Abs React Lymphs (Man) 0.0 K/mm3 01/27/21 05:22 Monocytes # (Manual) 0.4 K/mm3 (0.0-0.8) 01/27/21 05:22 Eosinophils # (Manual) 0.0 K/mm3 (0.0-0.4) 01/27/21 05:22 Basophils # (Manual) 0.0 K/mm3 (0.0-0.1) 01/27/21 05:22 Metamyelocytes # 0.0 K/mm3 01/27/21 05:22 Myelocytes # 0.0 K/mm3 01/27/21 05:22 Promyelocytes # 0.0 K/mm3 01/27/21 05:22 Blast Cells # 0.0 K/mm3 01/27/21 05:22 WBC Morphology Not Reportable 01/27/21 05:22 Hypersegmented Neuts Not Reportable 01/27/21 05:22 Hyposegmented Neuts Not Reportable 01/27/21 05:22 Hypogranular Neuts Not Reportable 01/27/21 05:22 Smudge Cells Not Reportable 01/27/21 05:22 Toxic Granulation 1+ 01/27/21 05:22 Toxic Vacuolation Not Reportable 01/27/21 05:22 Dohle Bodies Not Reportable 01/27/21 05:22 Pelger-Huet Anomaly Not Reportable 01/27/21 05:22 Brando Rods Not Reportable 01/27/21 05:22 Platelet Estimate Consistent w auto 01/27/21 05:22 Clumped Platelets Not Reportable 01/27/21 05:22 Plt Clumps, EDTA Not Reportable 01/27/21 05:22 Large Platelets Not Reportable 01/27/21 05:22 Giant Platelets Not Reportable 01/27/21 05:22 Platelet Satelliting Not Reportable 01/27/21 05:22 Plt Morphology Comment Not Reportable 01/27/21 05:22 RBC Morphology Normal 01/27/21 05:22 Dimorphic RBCs Not Reportable 01/27/21 05:22 Polychromasia Not Reportable 01/27/21 05:22 Hypochromasia Not Reportable 01/27/21 05:22 Poikilocytosis Not Reportable 01/27/21 05:22 Anisocytosis Not Reportable 01/27/21 05:22 Microcytosis Not Reportable 01/27/21 05:22 Macrocytosis Not Reportable 01/27/21 05:22 Spherocytes Not Reportable 01/27/21 05:22 Pappenheimer Bodies Not Reportable 01/27/21 05:22 Sickle Cells Not Reportable 01/27/21 05:22 Target Cells Not Reportable 01/27/21 05:22 Tear Drop Cells Not Reportable 01/27/21 05:22 Ovalocytes Not Reportable 01/27/21 05:22 Helmet Cells Not Reportable 01/27/21 05:22 [place] Bodies Not Reportable 01/27/21 05:22 [place] Rings Not Reportable 01/27/21 05:22 [place] Cells Not Reportable 01/27/21 05:22 Bite Cells Not Reportable 01/27/21 05:22 Crenated Cell Not Reportable 01/27/21 05:22 Elliptocytes Not Reportable 01/27/21 05:22 Acanthocytes (Spur) Not Reportable 01/27/21 05:22 Rouleaux Not Reportable 01/27/21 05:22 Hemoglobin C Crystals Not Reportable 01/27/21 05:22 Schistocytes Not Reportable 01/27/21 05:22 Malaria parasites Not Reportable 01/27/21 05:22 Ry Bodies Not Reportable 01/27/21 05:22 Hem Pathologist Commnt No 01/27/21 05:22 PT 15.9 Sec. (12.2-14.9) H 01/27/21 05:22 INR 1.15 (0.87-1.13) H 01/27/21 05:22 APTT 41.4 Sec. (24.2-36.6) H 01/27/21 05:22 Sodium 144 mmol/L (137-145) 01/29/21 04:18 Potassium 3.4 mmol/L (3.6-5.0) L 01/29/21 04:18 Chloride 107.5 mmol/L (98-107) H 01/29/21 04:18 Carbon Dioxide 23 mmol/L (22-30) 01/29/21 04:18 Anion Gap 17 mmol/L 01/29/21 04:18 BUN 24 mg/dL (7-17) H 01/29/21 04:18 Creatinine 2.1 mg/dL (0.6-1.2) H 01/29/21 04:18 Estimated GFR 29 ml/min 01/29/21 04:18 BUN/Creatinine Ratio 11 % 01/29/21 04:18 Glucose 108 mg/dL (65-100) H 01/29/21 04:18 POC Glucose 151 mg/dL (70-105) H 01/29/21 12:41 Calcium 8.4 mg/dL (8.4-10.2) 01/29/21 04:18 Phosphorus 3.20 mg/dL (2.5-4.5) 01/29/21 04:18 Magnesium 1.80 mg/dL (1.7-2.3) 01/29/21 04:18 Total Bilirubin 0.40 mg/dL (0.1-1.2) 01/27/21 05:22 AST 18 units/L (5-40) 01/27/21 05:22 ALT 8 units/L (7-56) 01/27/21 05:22 Alkaline Phosphatase 97 units/L (35-129) 01/27/21 05:22 Total Creatine Kinase 622 units/L (30-135) H 01/27/21 05:22 Troponin T 0.033 ng/mL (0.00-0.029) H 01/27/21 05:22 NT-Pro-B Natriuret Pep 637.6 pg/mL (0-900) 01/27/21 05:22 Total Protein 7.6 g/dL (6.3-8.2) 01/27/21 05:22 Albumin 3.6 g/dL (3.9-5) L 01/27/21 05:22 Albumin/Globulin Ratio 0.9 % 01/27/21 05:22 Triglycerides 74 mg/dL (2-149) 01/27/21 05:22 Cholesterol 158 mg/dL (50-199) 01/27/21 05:22 LDL Cholesterol Direct 92 mg/dL (50-130) 01/27/21 05:22 HDL Cholesterol 51 mg/dL (40-59) 01/27/21 05:22 Cholesterol/HDL Ratio 3.25 % 01/27/21 05:22 TSH 3.330 mlU/mL (0.270-4.200) 01/28/21 05:28 Free T4 1.13 ng/dL (0.76-1.46) 01/28/21 05:28 Urine Color Yellow (Yellow) 01/27/21 11:10 Urine Turbidity Clear (Clear) 01/27/21 11:10 Urine pH 5.0 (5.0-7.0) 01/27/21 11:10 Ur Specific [place] 1.010 (1.003-1.030) 01/27/21 11:10 Urine Protein >500 mg/dL (Negative) 01/27/21 11:10 Urine Glucose (UA) 50 mg/dL (Negative) 01/27/21 11:10 Urine Ketones Neg mg/dL (Negative) 01/27/21 11:10 Urine Blood Sm (Negative) 01/27/21 11:10 Urine Nitrite Neg (Negative) 01/27/21 11:10 Urine Bilirubin Neg (Negative) 01/27/21 11:10 Urine Urobilinogen < 2.0 mg/dL (<2.0) 01/27/21 11:10 Ur Leukocyte Esterase Neg (Negative) 01/27/21 11:10 Urine WBC (Auto) 3.0 /HPF (0.0-6.0) 01/27/21 11:10 Urine RBC (Auto) 4.0 /HPF (0.0-6.0) 01/27/21 11:10 U Epithel Cells (Auto) 2.0 /HPF (0-13.0) 01/27/21 11:10 Urine Mucus Few /HPF 01/27/21 11:10 Microbiology: Microbiology 01/27/21 13:10 Urine,Catheterized - Straight Catheter Urine Culture - Final Guzman/IV: Voiding Method Indwelling Catheter Active Medications - Current Medications Current Medications: Generic Name Dose Route Start Last Admin Trade Name Freq PRN Reason Stop Dose Admin Acetaminophen 650 mg 01/27/21 10:00 Acetaminophen 325 Mg Tab PO Q4H PRN Pain MILD(1-3)/Fever >100.5/NEAL Hydrocodone Bitart/Acetaminophen 2 each 01/27/21 10:00 01/29/21 06:03 Hydrocodone/Acetaminophen 5-325 Mg Tab PO 2 each Q6H PRN Administration Pain, Moderate (4-6) Dextrose 50 ml 01/27/21 10:00 Dextrose 50% In Water (25gm) 50 Ml Syringe IV Q30MIN PRN Hypoglycemia Protocol Docusate Sodium 100 mg 01/27/21 10:00 Docusate Sodium 100 Mg Cap PO 02/06/21 09:59 BID PRN Constipation Famotidine 10 mg 01/27/21 10:00 Famotidine 10 Mg Tab PO BID PRN Dyspepsia Furosemide 40 mg 01/29/21 10:00 01/29/21 09:16 Furosemide 40 Mg Tab PO 40 mg QDAY JUDY Administration Heparin Sodium (Porcine) 5,000 unit 01/27/21 14:00 01/29/21 05:54 Heparin 5,000 Unit/1 Ml Vial SUB-Q 5,000 unit Q8HR JUDY Administration Lactated Ringer's 1,000 mls @ 150 mls/hr 01/28/21 17:30 01/29/21 05:54 Lactated Ringers IV 150 mls/hr DIRECT JUDY Administration Insulin Human Regular 0 units 01/27/21 11:30 01/29/21 12:34 Insulin Regular, Human 100 Units/1 Ml SUB-Q Not Given ACHS JUDY Protocol Ketoconazole 1 applic 01/28/21 14:00 01/29/21 09:16 Ketoconazole 2% Cream 15 Gm TP 1 applic BID JUDY Administration Morphine Sulfate 2 mg 01/27/21 10:00 Morphine 4 Mg/1 Ml Inj IV Q4H PRN Pain , Severe (7-10) Ondansetron HCl 4 mg 01/27/21 10:00 Ondansetron 4 Mg/2 Ml Inj IV Q8H PRN Nausea And Vomiting Senna 8.6 mg 01/27/21 10:00 Sennosides 8.6 Mg Tab PO Q12HR PRN Constipation Sodium Chloride 10 ml 01/27/21 10:00 01/29/21 09:17 Sodium Chloride 0.9% 10 Ml Flush Syringe IV 10 ml BID JUDY Administration Sodium Chloride 10 ml 01/27/21 10:00 Sodium Chloride 0.9% 10 Ml Flush Syringe IV PRN PRN LINE FLUSH Nutrition/Malnutrition Assess - Dietary Evaluation Nutrition/Malnutrition Findings: Nutrition Notes Start: 01/28/21 11:34 Freq: Status: Active Protocol: Document 01/28/21 12:44 ELYSIA (Rec: 01/28/21 12:58 ELYSIA [email or web address]) Nutrition Notes Need for Assessment generated from: maori physiotherapist Initial or Follow up Assessment Current Diagnosis CKD(stage I-IV),Diabetes, Hypertension,Hyperlipidemia Other Pertinent Diagnosis Chest pain, abdomen and lower extremities swelling Current Diet Cardiac/Consistent Carbohydrates Diet (since L ). Labs/Tests 01/28: Unavailable. Pertinent Medications 01/28: Nutritionally unremarkable. Height 5 ft 2 in Weight 112.8 kg [place] Body Weight (kg) 50.00 BMI 45.4 Weight Status Morbidly Obese Percent of energy/protein needs met: Prescribed C/CC Diet provides for energy/protein needs (1, 977 Kcal/86 g) during LOS. Burn Absent Trauma Absent GI Symptoms None Food Allergy No Skin Integrity/Comment Clear, warm, dry. #1 Nutrition Diagnosis Food and nutrition-related knowledge deficit Etiology Multiple concomitant chronic metabolic conditions As Evidenced by Signs and Symptoms High BMI, Current emergency situation. Is patient on ventilator? No Is Patient Ambulatory and/or Out of Bed Yes [facility]) [ 2133.625 [id number]] Kcal/Kg value to use for calculation 18 Approximate Energy Requirements Using 2030 kcal/Kg Calculation Used for Recommendations Kcal/kg Additional Notes Protein: 0.8-1.0 g/Kg/day; 40- 50 g/day; 160-200 Kcal/day ( from IBW). Fluids: 1.0 ml/Kcal/day, or as per MD. Nutrition Intervention Change Diet Order: Continue Cardiac/Consistent Carbohydrates Diet. Goal #1 Maintain body weight within +/ - 3% of current BWt during LOS . Goal #2 Reach and maintain acceptable chemistry lab values during LOS. Follow-Up By: 02/04/21 Additional Comments Continue monitoring acceptance of foods, %PO intake of meals , Hydration, and BM. - Attestation Statement I have reviewed and agreed w/ Malnutrition eval & tx plan: Yes
[2021-01-29] MEDS: allopurinoL 100 MG TAB PO SCH (21:27)
[2021-01-29] MEDS: LISINOPRIL 5 MG TAB PO SCH (21:27)
[2021-01-29] MEDS: METOPROLOL TARTRATE 25 MG TAB PO SCH (21:28)
[2021-01-29] MEDS: amLODIPine 10 MG TAB PO SCH (21:28)
[2021-01-30] MEDS: LACTATED RINGERS 1,000 ML IV SCH ×3 (04:10→22:17)
[2021-01-30] MEDS: HEPARIN 5,000 UNIT/1 ML VIAL SUB-Q SCH ×3 (05:39→22:10)
[2021-01-30 08:14] LABS: Hematocrit 28.4 % (30.3-42.9); Hemoglobin 9.1 gm/dl (10.1-14.3); Mean Corpuscular HGB Conc 32 % (30-34); Mean Corpuscular Volume 77 fl (79-97); Platelet Count 320 K/mm3 (140-440); Red Blood Count 3.69 M/mm3 (3.65-5.03); Red Cell Distribution Width 18.8 % (13.2-15.2)
[2021-01-30] MEDS: INSULIN REGULAR, HUMAN 100 UNITS/1 ML SUB-Q SCH ×4 (08:25→22:10)
[2021-01-30 08:39] LABS: Calcium 8.2 mg/dL (8.4-10.2)
[2021-01-30] MEDS: allopurinoL 100 MG TAB PO SCH (09:37)
[2021-01-30] MEDS: METOPROLOL TARTRATE 25 MG TAB PO SCH (09:37)
[2021-01-30] MEDS: LISINOPRIL 5 MG TAB PO SCH (09:37)
[2021-01-30] MEDS: amLODIPine 10 MG TAB PO SCH (09:37)
[2021-01-30] MEDS: FUROSEMIDE 40 MG TAB PO SCH (09:37)
[2021-01-30] MEDS: KETOCONAZOLE 2% CREAM 15 GM TP SCH ×2 (09:44→22:09)
--- NOTE | 2021-01-30 13:18 | Progress Note ---
Assessment and Plan Assessment and plan: Patient is a 60-year-old female with past medical history of hypertension, insulin-dependent diabetes, CKD, hyperlipidemia, and possible hypothyroidism who presented with swelling of bilateral lower extremities and abdomen for approximately 2 weeks. #Acute on chronic diastolic heart failure exacerbation-resolved #Mild diastolic heart failure -Etiology undetermined -Pro BNP 637 -Chest x-ray revealing diffuse pulmonary edema with interstitial infiltrates -TTE reveals mild diastolic heart failure with EF 55-60% -Continue IV Lasix 40 mg twice daily -Continue daily weights, strict I's/O, fluid restriction 1.5 L/day, and telemetry -Continue on cardiac/diabetic diet #Nonanion gap metabolic acidosis-resolved -Gap 21 -Likely secondary to volume overload -will continue to monitor #Hypertension -Continue home antihypertensives: Amlodipine 10 mg daily, metoprolol succinate 25 mg daily. -Restarting enalapril low-dose. #Insulin-dependent diabetes (type II) -Pending hemoglobin A1c -Continue moderate SSI with Accu-Cheks with meals -Blood sugar goal [id number] while inpatient #CKD stage IV -Creatinine 2.1 (baseline unknown) -Chronic kidney disease likely secondary to uncontrolled hypertension in the setting of insulin-dependent diabetes. Should follow with nephrology in outpatient setting. -Renally dose meds and avoid nephrotoxic medications #Cutaneous candidiasis -Currently present under abdominal pannus and extending to bilateral upper th ighs -Continue ketoconazole cream to be applied to affected areas -Continue to monitor #Possible hypothyroidism-resolved -Pending TSH 3.33, free T4 1.113 -We will continue to follow #Skin breakdown -Wound care consulted for skin evaluation of pannus; appreciate recs #Generalized weakness -Consulting physical therapy and Occupational Therapy; appreciate recs -Patient would require 24-hour care at home or SNF. Case management currently working on SNF placement. #Discharge planning -Patient presented to emergency room disheveled and covered in old crusted feces. Patient endorses living at home with adult children -Social work consulted; appreciate recs -Discharge will be to SNF versus home with home health Disposition Plan: Ready for discharge. Pending SNF placement. Total Time Spent with Patient (Minutes): 45 History Interval history: No acute events over night. The patient denies fevers, chills, nausea, vomiting, abdominal pain, chest pain/pressure, shortness of breath, urinary symptoms, weakness, or confusion. Hospitalist Physical - Constitutional Vitals: Temp Pulse Resp BP Pulse Ox 97.2 F L 82 20 156/75 90 01/30/21 11:13 01/30/21 11:13 01/30/21 11:13 01/30/21 11:13 01/30/21 11:13 General appearance: Present: no acute distress, obese, disheveled - EENT Eyes: Present: PERRL, EOM intact ENT: hearing intact, clear oral mucosa, dentition normal - Neck Neck: Present: supple, normal ROM - Respiratory Respiratory effort: normal - Cardiovascular Rhythm: regular Heart Sounds: Present: S1 & S2 - Extremities Extremities: no ischemia, pulses intact, pulses symmetrical, normal temperature, normal color Extremity abnormal: edema (Trace edema in bilateral lower extremities.) Peripheral Pulses: within normal limits - Abdominal General gastrointestinal: soft, non-tender, non-distended, normal bowel sounds - Integumentary Integumentary: Present: clear, warm, dry - Psychiatric Psychiatric: appropriate mood/affect, memory intact, cooperative - Neurologic Neurologic: CNII-XII intact, moves all extremities - Allied Health Allied health notes reviewed: nursing HEART Score - HEART Score EKG: Non-specific Age: 45-65 Risk factors: > 3 risk factors or hx of atherosclerotic disease Troponin: Troponin T 0.033 ng/mL (0.00-0.029) H 01/27/21 05:22 Troponin: 1-3x normal limit - Critical Actions Critical Actions: 4-6 pts:12-16.6% risk of adverse cardiac event. Should be admitted Results - Labs CBC & Chem 7: 01/30/21 07:51 01/30/21 07:51 Labs: Laboratory Last Values WBC 17.4 K/mm3 (4.5-11.0) H 01/30/21 07:51 RBC 3.69 M/mm3 (3.65-5.03) 01/30/21 07:51 Hgb 9.1 gm/dl (10.1-14.3) L 01/30/21 07:51 Hct 28.4 % (30.3-42.9) L 01/30/21 07:51 MCV 77 fl (79-97) L 01/30/21 07:51 MCH 25 pg (28-32) L 01/30/21 07:51 MCHC 32 % (30-34) 01/30/21 07:51 RDW 18.8 % (13.2-15.2) H 01/30/21 07:51 Plt Count 320 K/mm3 (140-440) 01/30/21 07:51 Lymph % (Auto) 15.5 % (13.4-35.0) 01/29/21 04:18 [place] % (Auto) 7.3 % (0.0-7.3) 01/29/21 04:18 Eos % (Auto) 2.7 % (0.0-4.3) 01/29/21 04:18 Baso % (Auto) 0.2 % (0.0-1.8) 01/29/21 04:18 Lymph # (Auto) 2.5 K/mm3 (1.2-5.4) 01/29/21 04:18 [place] # (Auto) 1.2 K/mm3 (0.0-0.8) H 01/29/21 04:18 Eos # (Auto) 0.4 K/mm3 (0.0-0.4) 01/29/21 04:18 Baso # (Auto) 0.0 K/mm3 (0.0-0.1) 01/29/21 04:18 Add Manual Diff Complete 01/27/21 05:22 Total Counted 100 01/27/21 05:22 Seg Neutrophils % 74.3 % (40.0-70.0) H 01/29/21 04:18 Seg Neuts % (Manual) 90.0 % (40.0-70.0) H 01/27/21 05:22 Band Neutrophils % 1.0 % 01/27/21 05:22 Lymphocytes % (Manual) 7.0 % (13.4-35.0) L 01/27/21 05:22 Monocytes % (Manual) 2.0 % (0.0-7.3) 01/27/21 05:22 Nucleated RBC % Not Reportable 01/27/21 05:22 Seg Neutrophils # 12.1 K/mm3 (1.8-7.7) H 01/29/21 04:18 Seg Neutrophils # Man 19.9 K/mm3 (1.8-7.7) H 01/27/21 05:22 Band Neutrophils # 0.2 K/mm3 01/27/21 05:22 Lymphocytes # (Manual) 1.5 K/mm3 (1.2-5.4) 01/27/21 05:22 Abs React Lymphs (Man) 0.0 K/mm3 01/27/21 05:22 Monocytes # (Manual) 0.4 K/mm3 (0.0-0.8) 01/27/21 05:22 Eosinophils # (Manual) 0.0 K/mm3 (0.0-0.4) 01/27/21 05:22 Basophils # (Manual) 0.0 K/mm3 (0.0-0.1) 01/27/21 05:22 Metamyelocytes # 0.0 K/mm3 01/27/21 05:22 Myelocytes # 0.0 K/mm3 01/27/21 05:22 Promyelocytes # 0.0 K/mm3 01/27/21 05:22 Blast Cells # 0.0 K/mm3 01/27/21 05:22 WBC Morphology Not Reportable 01/27/21 05:22 Hypersegmented Neuts Not Reportable 01/27/21 05:22 Hyposegmented Neuts Not Reportable 01/27/21 05:22 Hypogranular Neuts Not Reportable 01/27/21 05:22 Smudge Cells Not Reportable 01/27/21 05:22 Toxic Granulation 1+ 01/27/21 05:22 Toxic Vacuolation Not Reportable 01/27/21 05:22 Dohle Bodies Not Reportable 01/27/21 05:22 Pelger-Huet Anomaly Not Reportable 01/27/21 05:22 Brando Rods Not Reportable 01/27/21 05:22 Platelet Estimate Consistent w auto 01/27/21 05:22 Clumped Platelets Not Reportable 01/27/21 05:22 Plt Clumps, EDTA Not Reportable 01/27/21 05:22 Large Platelets Not Reportable 01/27/21 05:22 Giant Platelets Not Reportable 01/27/21 05:22 Platelet Satelliting Not Reportable 01/27/21 05:22 Plt Morphology Comment Not Reportable 01/27/21 05:22 RBC Morphology Normal 01/27/21 05:22 Dimorphic RBCs Not Reportable 01/27/21 05:22 Polychromasia Not Reportable 01/27/21 05:22 Hypochromasia Not Reportable 01/27/21 05:22 Poikilocytosis Not Reportable 01/27/21 05:22 Anisocytosis Not Reportable 01/27/21 05:22 Microcytosis Not Reportable 01/27/21 05:22 Macrocytosis Not Reportable 01/27/21 05:22 Spherocytes Not Reportable 01/27/21 05:22 Pappenheimer Bodies Not Reportable 01/27/21 05:22 Sickle Cells Not Reportable 01/27/21 05:22 Target Cells Not Reportable 01/27/21 05:22 Tear Drop Cells Not Reportable 01/27/21 05:22 Ovalocytes Not Reportable 01/27/21 05:22 Helmet Cells Not Reportable 01/27/21 05:22 [place] Bodies Not Reportable 01/27/21 05:22 [place] Rings Not Reportable 01/27/21 05:22 [place]iza Cells Not Reportable 01/27/21 05:22 Bite Cells Not Reportable 01/27/21 05:22 Crenated Cell Not Reportable 01/27/21 05:22 Elliptocytes Not Reportable 01/27/21 05:22 Acanthocytes (Spur) Not Reportable 01/27/21 05:22 Rouleaux Not Reportable 01/27/21 05:22 Hemoglobin C Crystals Not Reportable 01/27/21 05:22 Schistocytes Not Reportable 01/27/21 05:22 Malaria parasites Not Reportable 01/27/21 05:22 Ry Bodies Not Reportable 01/27/21 05:22 Hem Pathologist Commnt No 01/27/21 05:22 PT 15.9 Sec. (12.2-14.9) H 01/27/21 05:22 INR 1.15 (0.87-1.13) H 01/27/21 05:22 APTT 41.4 Sec. (24.2-36.6) H 01/27/21 05:22 Sodium 141 mmol/L (137-145) 01/30/21 07:51 Potassium 3.7 mmol/L (3.6-5.0) 01/30/21 07:51 Chloride 105.7 mmol/L (98-107) 01/30/21 07:51 Carbon Dioxide 25 mmol/L (22-30) 01/30/21 07:51 Anion Gap 14 mmol/L 01/30/21 07:51 BUN 20 mg/dL (7-17) H 01/30/21 07:51 Creatinine 1.8 mg/dL (0.6-1.2) H 01/30/21 07:51 Estimated GFR 34 ml/min 01/30/21 07:51 BUN/Creatinine Ratio 11 % 01/30/21 07:51 Glucose 134 mg/dL (65-100) H 01/30/21 07:51 POC Glucose 130 mg/dL (70-105) H 01/30/21 12:21 Calcium 8.2 mg/dL (8.4-10.2) L 01/30/21 07:51 Phosphorus 2.90 mg/dL (2.5-4.5) 01/30/21 07:51 Magnesium 1.60 mg/dL (1.7-2.3) L 01/30/21 07:51 Total Bilirubin 0.40 mg/dL (0.1-1.2) 01/27/21 05:22 AST 18 units/L (5-40) 01/27/21 05:22 ALT 8 units/L (7-56) 01/27/21 05:22 Alkaline Phosphatase 97 units/L (35-129) 01/27/21 05:22 Total Creatine Kinase 622 units/L (30-135) H 01/27/21 05:22 Troponin T 0.033 ng/mL (0.00-0.029) H 01/27/21 05:22 NT-Pro-B Natriuret Pep 637.6 pg/mL (0-900) 01/27/21 05:22 Total Protein 7.6 g/dL (6.3-8.2) 01/27/21 05:22 Albumin 3.6 g/dL (3.9-5) L 01/27/21 05:22 Albumin/Globulin Ratio 0.9 % 01/27/21 05:22 Triglycerides 74 mg/dL (2-149) 01/27/21 05:22 Cholesterol 158 mg/dL (50-199) 01/27/21 05:22 LDL Cholesterol Direct 92 mg/dL (50-130) 01/27/21 05:22 HDL Cholesterol 51 mg/dL (40-59) 01/27/21 05:22 Cholesterol/HDL Ratio 3.25 % 01/27/21 05:22 TSH 3.330 mlU/mL (0.270-4.200) 01/28/21 05:28 Free T4 1.13 ng/dL (0.76-1.46) 01/28/21 05:28 Urine Color Yellow (Yellow) 01/27/21 11:10 Urine Turbidity Clear (Clear) 01/27/21 11:10 Urine pH 5.0 (5.0-7.0) 01/27/21 11:10 Ur Specific [place] 1.010 (1.003-1.030) 01/27/21 11:10 Urine Protein >500 mg/dL (Negative) 01/27/21 11:10 Urine Glucose (UA) 50 mg/dL (Negative) 01/27/21 11:10 Urine Ketones Neg mg/dL (Negative) 01/27/21 11:10 Urine Blood Sm (Negative) 01/27/21 11:10 Urine Nitrite Neg (Negative) 01/27/21 11:10 Urine Bilirubin Neg (Negative) 01/27/21 11:10 Urine Urobilinogen < 2.0 mg/dL (<2.0) 01/27/21 11:10 Ur Leukocyte Esterase Neg (Negative) 01/27/21 11:10 Urine WBC (Auto) 3.0 /HPF (0.0-6.0) 01/27/21 11:10 Urine RBC (Auto) 4.0 /HPF (0.0-6.0) 01/27/21 11:10 U Epithel Cells (Auto) 2.0 /HPF (0-13.0) 01/27/21 11:10 Urine Mucus Few /HPF 01/27/21 11:10 Coronavirus (PCR) Negative (Negative) 01/29/21 Unknown Microbiology: Microbiology 01/27/21 13:10 Urine,Catheterized - Straight Catheter Urine Culture - Final Guzman/IV: Voiding Method Indwelling Catheter Active Medications - Current Medications Current Medications: Generic Name Dose Route Start Last Admin Trade Name Freq PRN Reason Stop Dose Admin Acetaminophen 650 mg 01/27/21 10:00 Acetaminophen 325 Mg Tab PO Q4H PRN Pain MILD(1-3)/Fever >100.5/NEAL Hydrocodone Bitart/Acetaminophen 2 each 01/27/21 10:00 01/29/21 06:03 Hydrocodone/Acetaminophen 5-325 Mg Tab PO 2 each Q6H PRN Administration Pain, Moderate (4-6) Allopurinol 100 mg 01/29/21 21:00 01/30/21 09:37 Allopurinol 100 Mg Tab PO 100 mg QDAY JUDY Administration Amlodipine Besylate 10 mg 01/29/21 21:00 01/30/21 09:37 Amlodipine 10 Mg Tab PO 10 mg QDAY JUDY Administration Dextrose 50 ml 01/27/21 10:00 Dextrose 50% In Water (25gm) 50 Ml Syringe IV Q30MIN PRN Hypoglycemia Protocol Docusate Sodium 100 mg 01/27/21 10:00 Docusate Sodium 100 Mg Cap PO 02/06/21 09:59 BID PRN Constipation Famotidine 10 mg 01/27/21 10:00 Famotidine 10 Mg Tab PO BID PRN Dyspepsia Furosemide 40 mg 01/29/21 10:00 01/30/21 09:37 Furosemide 40 Mg Tab PO 40 mg QDAY JUDY Administration Heparin Sodium (Porcine) 5,000 unit 01/27/21 14:00 01/30/21 05:39 Heparin 5,000 Unit/1 Ml Vial SUB-Q 5,000 unit Q8HR JUDY Administration Lactated Ringer's 1,000 mls @ 150 mls/hr 01/28/21 17:30 01/30/21 04:10 Lactated Ringers IV 150 mls/hr DIRECT JUDY Administration Insulin Human Regular 0 units 01/27/21 11:30 01/30/21 13:00 Insulin Regular, Human 100 Units/1 Ml SUB-Q Not Given ACHS JUDY Protocol Ketoconazole 1 applic 01/28/21 14:00 01/30/21 09:44 Ketoconazole 2% Cream 15 Gm TP 1 applic BID JUDY Administration Lisinopril 2.5 mg 01/29/21 21:00 01/30/21 09:37 Lisinopril 5 Mg Tab PO 2.5 mg QDAY JUDY Administration Metoprolol Tartrate 25 mg 01/29/21 21:00 01/30/21 09:37 Metoprolol Tartrate 25 Mg Tab PO 25 mg DAILY JUDY Administration Morphine Sulfate 2 mg 01/27/21 10:00 Morphine 4 Mg/1 Ml Inj IV Q4H PRN Pain , Severe (7-10) Ondansetron HCl 4 mg 01/27/21 10:00 Ondansetron 4 Mg/2 Ml Inj IV Q8H PRN Nausea And Vomiting Senna 8.6 mg 01/27/21 10:00 Sennosides 8.6 Mg Tab PO Q12HR PRN Constipation Sodium Chloride 10 ml 01/27/21 10:00 01/30/21 09:38 Sodium Chloride 0.9% 10 Ml Flush Syringe IV 10 ml BID JUDY Administration Sodium Chloride 10 ml 01/27/21 10:00 Sodium Chloride 0.9% 10 Ml Flush Syringe IV PRN PRN LINE FLUSH Nutrition/Malnutrition Assess - Dietary Evaluation Nutrition/Malnutrition Findings: Nutrition Notes Start: 01/28/21 11:34 Freq: Status: Active Protocol: Document 01/28/21 12:44 ELYSIA (Rec: 01/28/21 12:58 ELYSIA [id number]) Nutrition Notes Need for Assessment generated from: serology technician Initial or Follow up Assessment Current Diagnosis CKD(stage I-IV),Diabetes, Hypertension,Hyperlipidemia Other Pertinent Diagnosis Chest pain, abdomen and lower extremities swelling Current Diet Cardiac/Consistent Carbohydrates Diet (since L ). Labs/Tests 01/28: Unavailable. Pertinent Medications 01/28: Nutritionally unremarkable. Height 5 ft 2 in Weight 112.8 kg [place] Body Weight (kg) 50.00 BMI 45.4 Weight Status Morbidly Obese Percent of energy/protein needs met: Prescribed C/CC Diet provides for energy/protein needs (1, 977 Kcal/86 g) during LOS. Burn Absent Trauma Absent GI Symptoms None Food Allergy No Skin Integrity/Comment Clear, warm, dry. #1 Nutrition Diagnosis Food and nutrition-related knowledge deficit Etiology Multiple concomitant chronic metabolic conditions As Evidenced by Signs and Symptoms High BMI, Current emergency situation. Is patient on ventilator? No Is Patient Ambulatory and/or Out of Bed Yes REE-(Stanly-St. Jeor-ambulatory/OOB) [ 2133.625 [id number]] Kcal/Kg value to use for calculation 18 Approximate Energy Requirements Using 2030 kcal/Kg Calculation Used for Recommendations Kcal/kg Additional Notes Protein: 0.8-1.0 g/Kg/day; 40- 50 g/day; 160-200 Kcal/day ( from IBW). Fluids: 1.0 ml/Kcal/day, or as per MD. Nutrition Intervention Change Diet Order: Continue Cardiac/Consistent Carbohydrates Diet. Goal #1 Maintain body weight within +/ - 3% of current BWt during LOS . Goal #2 Reach and maintain acceptable chemistry lab values during LOS. Follow-Up By: 02/04/21 Additional Comments Continue monitoring acceptance of foods, %PO intake of meals , Hydration, and BM. - Attestation Statement I have reviewed and agreed w/ Malnutrition eval & tx plan: Yes
[2021-01-31] MEDS: HEPARIN 5,000 UNIT/1 ML VIAL SUB-Q SCH ×3 (04:59→22:12)
[2021-01-31 05:23] LABS: Basophils # (Auto) 0.1 K/mm3 (0.0-0.1); Basophils % (Auto) 0.4 % (0.0-1.8); Eosinophils # (Auto) 0.3 K/mm3 (0.0-0.4); Eosinophils % (Auto) 2.1 % (0.0-4.3); Hematocrit 28.5 % (30.3-42.9); Lymphocytes # (Auto) 2.9 K/mm3 (1.2-5.4); Lymphocytes % (Auto) 18.9 % (13.4-35.0); Mean Corpuscular HGB Conc 32 % (30-34); Mean Corpuscular Volume 78 fl (79-97); Monocytes # (Auto) 1.2 K/mm3 (0.0-0.8); Monocytes % (Auto) 8.1 % (0.0-7.3); Platelet Count 330 K/mm3 (140-440); Red Blood Count 3.63 M/mm3 (3.65-5.03); Red Cell Distribution Width 18.5 % (13.2-15.2)
[2021-01-31 05:36] LABS: Calcium 8.4 mg/dL (8.4-10.2)
[2021-01-31] MEDS: INSULIN REGULAR, HUMAN 100 UNITS/1 ML SUB-Q SCH ×4 (08:54→22:26)
[2021-01-31] MEDS: LISINOPRIL 5 MG TAB PO SCH ×2 (08:58→10:36)
[2021-01-31] MEDS: amLODIPine 10 MG TAB PO SCH (09:00)
[2021-01-31] MEDS: FUROSEMIDE 40 MG TAB PO SCH (09:00)
[2021-01-31] MEDS: METOPROLOL TARTRATE 25 MG TAB PO SCH (09:00)
[2021-01-31] MEDS: allopurinoL 100 MG TAB PO SCH (09:00)
[2021-01-31] MEDS ORDERED: MAGNESIUM SULFATE 1 GM in SODIUM CHLORIDE 0.9% 50 ML IV ONE (09:00)
[2021-01-31] MEDS: KETOCONAZOLE 2% CREAM 15 GM TP SCH ×2 (09:02→22:13)
--- NOTE | 2021-01-31 12:48 | Progress Note ---
Assessment and Plan Assessment and plan: Patient is a 60-year-old female with past medical history of hypertension, insulin-dependent diabetes, CKD, hyperlipidemia, and possible hypothyroidism who presented with swelling of bilateral lower extremities and abdomen for approximately 2 weeks. #Acute on chronic diastolic heart failure exacerbation-resolved #Mild diastolic heart failure -Etiology undetermined -Pro BNP 637 -Chest x-ray revealing diffuse pulmonary edema with interstitial infiltrates -TTE reveals mild diastolic heart failure with EF 55-60% -Continue IV Lasix 40 mg twice daily -Continue daily weights, strict I's/O, fluid restriction 1.5 L/day, and telemetry -Continue on cardiac/diabetic diet #Nonanion gap metabolic acidosis-resolved -Gap 21 -Likely secondary to volume overload -will continue to monitor #Hypertension-stable -Continue home antihypertensives: Amlodipine 10 mg daily, metoprolol succinate 25 mg daily. -Restarting enalapril low-dose. #Insulin-dependent diabetes (type II)-state -Pending hemoglobin A1c -Continue moderate SSI with Accu-Cheks with meals -Blood sugar goal [id number] while inpatient #CKD stage IV -Creatinine 2.1 (baseline unknown) -Chronic kidney disease likely secondary to uncontrolled hypertension in the setting of insulin-dependent diabetes. Should follow with nephrology in outpatient setting. -Renally dose meds and avoid nephrotoxic medications #Cutaneous candidiasis -Currently present under abdominal pannus and extending to bilateral upper thighs -Continue ketoconazole cream to be applied to affected areas -Continue to monitor #Possible hypothyroidism-resolved -Pending TSH 3.33, free T4 1.113 -We will continue to follow #Skin breakdown -Wound care consulted for skin evaluation of pannus; appreciate recs #Generalized weakness -Consulting physical therapy and Occupational Therapy; appreciate recs -Patient would require 24-hour care at home or SNF. Case management currently working on SNF placement. #Discharge planning -Patient presented to emergency room disheveled and covered in old crusted feces. Patient endorses living at home with adult children -Social work consulted; appreciate recs -Discharge will be to SNF versus home with home health -Medically ready for discharge. Disposition Plan: Pending SNF placement Total Time Spent with Patient (Minutes): 35 History Interval history: No acute events over night. The patient denies fevers, chills, nausea, vomiting, abdominal pain, chest pain/pressure, shortness of breath, urinary symptoms, weakness, or confusion. Hospitalist Physical - Constitutional Vitals: Temp Pulse Resp BP Pulse Ox 98.4 F 83 18 145/63 93 01/31/21 08:35 01/31/21 12:00 01/31/21 10:00 01/31/21 08:58 01/31/21 10:00 General appearance: Present: no acute distress, obese, disheveled - EENT Eyes: Present: PERRL, EOM intact ENT: hearing intact, clear oral mucosa, dentition normal - Neck Neck: Present: supple, normal ROM - Respiratory Respiratory effort: normal - Cardiovascular Rhythm: regular Heart Sounds: Present: S1 & S2 - Extremities Extremities: no ischemia, pulses intact, pulses symmetrical, No edema, normal temperature, normal color Peripheral Pulses: within normal limits - Abdominal General gastrointestinal: soft, non-tender, non-distended, normal bowel sounds - Integumentary Integumentary: Present: clear, warm, dry - Psychiatric Psychiatric: appropriate mood/affect, memory intact, cooperative, other (Limited insight) - Neurologic Neurologic: CNII-XII intact, moves all extremities - Allied Health Allied health notes reviewed: nursing HEART Score - HEART Score EKG: Non-specific Age: 45-65 Risk factors: > 3 risk factors or hx of atherosclerotic disease Troponin: Troponin T 0.033 ng/mL (0.00-0.029) H 01/27/21 05:22 Troponin: 1-3x normal limit - Critical Actions Critical Actions: 4-6 pts:12-16.6% risk of adverse cardiac event. Should be admitted Results - Labs CBC & Chem 7: 01/31/21 04:04 01/31/21 04:04 Labs: Laboratory Last Values WBC 15.2 K/mm3 (4.5-11.0) H 01/31/21 04:04 RBC 3.63 M/mm3 (3.65-5.03) L 01/31/21 04:04 Hgb 9.0 gm/dl (10.1-14.3) L 01/31/21 04:04 Hct 28.5 % (30.3-42.9) L 01/31/21 04:04 MCV 78 fl (79-97) L 01/31/21 04:04 MCH 25 pg (28-32) L 01/31/21 04:04 MCHC 32 % (30-34) 01/31/21 04:04 RDW 18.5 % (13.2-15.2) H 01/31/21 04:04 Plt Count 330 K/mm3 (140-440) 01/31/21 04:04 Lymph % (Auto) 18.9 % (13.4-35.0) 01/31/21 04:04 Bennett % (Auto) 8.1 % (0.0-7.3) H 01/31/21 04:04 Eos % (Auto) 2.1 % (0.0-4.3) 01/31/21 04:04 Baso % (Auto) 0.4 % (0.0-1.8) 01/31/21 04:04 Lymph # (Auto) 2.9 K/mm3 (1.2-5.4) 01/31/21 04:04 Bennett # (Auto) 1.2 K/mm3 (0.0-0.8) H 01/31/21 04:04 Eos # (Auto) 0.3 K/mm3 (0.0-0.4) 01/31/21 04:04 Baso # (Auto) 0.1 K/mm3 (0.0-0.1) 01/31/21 04:04 Add Manual Diff Complete 01/27/21 05:22 Total Counted 100 01/27/21 05:22 Seg Neutrophils % 70.5 % (40.0-70.0) H 01/31/21 04:04 Seg Neuts % (Manual) 90.0 % (40.0-70.0) H 01/27/21 05:22 Band Neutrophils % 1.0 % 01/27/21 05:22 Lymphocytes % (Manual) 7.0 % (13.4-35.0) L 01/27/21 05:22 Monocytes % (Manual) 2.0 % (0.0-7.3) 01/27/21 05:22 Nucleated RBC % Not Reportable 01/27/21 05:22 Seg Neutrophils # 10.7 K/mm3 (1.8-7.7) H 01/31/21 04:04 Seg Neutrophils # Man 19.9 K/mm3 (1.8-7.7) H 01/27/21 05:22 Band Neutrophils # 0.2 K/mm3 01/27/21 05:22 Lymphocytes # (Manual) 1.5 K/mm3 (1.2-5.4) 01/27/21 05:22 Abs React Lymphs (Man) 0.0 K/mm3 01/27/21 05:22 Monocytes # (Manual) 0.4 K/mm3 (0.0-0.8) 01/27/21 05:22 Eosinophils # (Manual) 0.0 K/mm3 (0.0-0.4) 01/27/21 05:22 Basophils # (Manual) 0.0 K/mm3 (0.0-0.1) 01/27/21 05:22 Metamyelocytes # 0.0 K/mm3 01/27/21 05:22 Myelocytes # 0.0 K/mm3 01/27/21 05:22 Promyelocytes # 0.0 K/mm3 01/27/21 05:22 Blast Cells # 0.0 K/mm3 01/27/21 05:22 WBC Morphology Not Reportable 01/27/21 05:22 Hypersegmented Neuts Not Reportable 01/27/21 05:22 Hyposegmented Neuts Not Reportable 01/27/21 05:22 Hypogranular Neuts Not Reportable 01/27/21 05:22 Smudge Cells Not Reportable 01/27/21 05:22 Toxic Granulation 1+ 01/27/21 05:22 Toxic Vacuolation Not Reportable 01/27/21 05:22 Dohle Bodies Not Reportable 01/27/21 05:22 Pelger-Huet Anomaly Not Reportable 01/27/21 05:22 Brando Rods Not Reportable 01/27/21 05:22 Platelet Estimate Consistent w auto 01/27/21 05:22 Clumped Platelets Not Reportable 01/27/21 05:22 Plt Clumps, EDTA Not Reportable 01/27/21 05:22 Large Platelets Not Reportable 01/27/21 05:22 Giant Platelets Not Reportable 01/27/21 05:22 Platelet Satelliting Not Reportable 01/27/21 05:22 Plt Morphology Comment Not Reportable 01/27/21 05:22 RBC Morphology Normal 01/27/21 05:22 Dimorphic RBCs Not Reportable 01/27/21 05:22 Polychromasia Not Reportable 01/27/21 05:22 Hypochromasia Not Reportable 01/27/21 05:22 Poikilocytosis Not Reportable 01/27/21 05:22 Anisocytosis Not Reportable 01/27/21 05:22 Microcytosis Not Reportable 01/27/21 05:22 Macrocytosis Not Reportable 01/27/21 05:22 Spherocytes Not Reportable 01/27/21 05:22 Pappenheimer Bodies Not Reportable 01/27/21 05:22 Sickle Cells Not Reportable 01/27/21 05:22 Target Cells Not Reportable 01/27/21 05:22 Tear Drop Cells Not Reportable 01/27/21 05:22 Ovalocytes Not Reportable 01/27/21 05:22 Helmet Cells Not Reportable 01/27/21 05:22 Alvares-Lenoir Bodies Not Reportable 01/27/21 05:22 [place] Rings Not Reportable 01/27/21 05:22 Aliza Cells Not Reportable 01/27/21 05:22 Bite Cells Not Reportable 01/27/21 05:22 Crenated Cell Not Reportable 01/27/21 05:22 Elliptocytes Not Reportable 01/27/21 05:22 Acanthocytes (Spur) Not Reportable 01/27/21 05:22 Rouleaux Not Reportable 01/27/21 05:22 Hemoglobin C Crystals Not Reportable 01/27/21 05:22 Schistocytes Not Reportable 01/27/21 05:22 Malaria parasites Not Reportable 01/27/21 05:22 Ry Bodies Not Reportable 01/27/21 05:22 Hem Pathologist Commnt No 01/27/21 05:22 PT 15.9 Sec. (12.2-14.9) H 01/27/21 05:22 INR 1.15 (0.87-1.13) H 01/27/21 05:22 APTT 41.4 Sec. (24.2-36.6) H 01/27/21 05:22 Sodium 140 mmol/L (137-145) 01/31/21 04:04 Potassium 4.3 mmol/L (3.6-5.0) 01/31/21 04:04 Chloride 102.9 mmol/L (98-107) 01/31/21 04:04 Carbon Dioxide 25 mmol/L (22-30) 01/31/21 04:04 Anion Gap 16 mmol/L 01/31/21 04:04 BUN 19 mg/dL (7-17) H 01/31/21 04:04 Creatinine 1.8 mg/dL (0.6-1.2) H 01/31/21 04:04 Estimated GFR 34 ml/min 01/31/21 04:04 BUN/Creatinine Ratio 11 % 01/31/21 04:04 Glucose 114 mg/dL (65-100) H 01/31/21 04:04 POC Glucose 132 mg/dL (70-105) H 01/31/21 11:55 Calcium 8.4 mg/dL (8.4-10.2) 01/31/21 04:04 Phosphorus 3.00 mg/dL (2.5-4.5) 01/31/21 04:04 Magnesium 1.60 mg/dL (1.7-2.3) L 01/31/21 04:04 Total Bilirubin 0.40 mg/dL (0.1-1.2) 01/27/21 05:22 AST 18 units/L (5-40) 01/27/21 05:22 ALT 8 units/L (7-56) 01/27/21 05:22 Alkaline Phosphatase 97 units/L (35-129) 01/27/21 05:22 Total Creatine Kinase 622 units/L (30-135) H 01/27/21 05:22 Troponin T 0.033 ng/mL (0.00-0.029) H 01/27/21 05:22 NT-Pro-B Natriuret Pep 637.6 pg/mL (0-900) 01/27/21 05:22 Total Protein 7.6 g/dL (6.3-8.2) 01/27/21 05:22 Albumin 3.6 g/dL (3.9-5) L 01/27/21 05:22 Albumin/Globulin Ratio 0.9 % 01/27/21 05:22 Triglycerides 74 mg/dL (2-149) 01/27/21 05:22 Cholesterol 158 mg/dL (50-199) 01/27/21 05:22 LDL Cholesterol Direct 92 mg/dL (50-130) 01/27/21 05:22 HDL Cholesterol 51 mg/dL (40-59) 01/27/21 05:22 Cholesterol/HDL Ratio 3.25 % 01/27/21 05:22 TSH 3.330 mlU/mL (0.270-4.200) 01/28/21 05:28 Free T4 1.13 ng/dL (0.76-1.46) 01/28/21 05:28 Urine Color Yellow (Yellow) 01/27/21 11:10 Urine Turbidity Clear (Clear) 01/27/21 11:10 Urine pH 5.0 (5.0-7.0) 01/27/21 11:10 Ur Specific [place] 1.010 (1.003-1.030) 01/27/21 11:10 Urine Protein >500 mg/dL (Negative) 01/27/21 11:10 Urine Glucose (UA) 50 mg/dL (Negative) 01/27/21 11:10 Urine Ketones Neg mg/dL (Negative) 01/27/21 11:10 Urine Blood Sm (Negative) 01/27/21 11:10 Urine Nitrite Neg (Negative) 01/27/21 11:10 Urine Bilirubin Neg (Negative) 01/27/21 11:10 Urine Urobilinogen < 2.0 mg/dL (<2.0) 01/27/21 11:10 Ur Leukocyte Esterase Neg (Negative) 01/27/21 11:10 Urine WBC (Auto) 3.0 /HPF (0.0-6.0) 01/27/21 11:10 Urine RBC (Auto) 4.0 /HPF (0.0-6.0) 01/27/21 11:10 U Epithel Cells (Auto) 2.0 /HPF (0-13.0) 01/27/21 11:10 Urine Mucus Few /HPF 01/27/21 11:10 Coronavirus (PCR) Negative (Negative) 01/29/21 Unknown Guzman/IV: Voiding Method Indwelling Catheter Active Medications - Current Medications Current Medications: Generic Name Dose Route Start Last Admin Trade Name Freq PRN Reason Stop Dose Admin Acetaminophen 650 mg 01/27/21 10:00 Acetaminophen 325 Mg Tab PO Q4H PRN Pain MILD(1-3)/Fever >100.5/NEAL Hydrocodone Bitart/Acetaminophen 2 each 01/27/21 10:00 01/29/21 06:03 Hydrocodone/Acetaminophen 5-325 Mg Tab PO 2 each Q6H PRN Administration Pain, Moderate (4-6) Allopurinol 100 mg 01/29/21 21:00 01/31/21 09:00 Allopurinol 100 Mg Tab PO 100 mg QDAY JUDY Administration Amlodipine Besylate 10 mg 01/29/21 21:00 01/31/21 09:00 Amlodipine 10 Mg Tab PO 10 mg QDAY JUDY Administration Dextrose 50 ml 01/27/21 10:00 Dextrose 50% In Water (25gm) 50 Ml Syringe IV Q30MIN PRN Hypoglycemia Protocol Docusate Sodium 100 mg 01/27/21 10:00 Docusate Sodium 100 Mg Cap PO 02/06/21 09:59 BID PRN Constipation Famotidine 10 mg 01/27/21 10:00 Famotidine 10 Mg Tab PO BID PRN Dyspepsia Furosemide 40 mg 01/29/21 10:00 01/31/21 09:00 Furosemide 40 Mg Tab PO 40 mg QDAY JUDY Administration Heparin Sodium (Porcine) 5,000 unit 01/27/21 14:00 01/31/21 04:59 Heparin 5,000 Unit/1 Ml Vial SUB-Q 5,000 unit Q8HR JUDY Administration Lactated Ringer's 1,000 mls @ 150 mls/hr 01/28/21 17:30 01/30/21 22:17 Lactated Ringers IV 150 mls/hr DIRECT JUDY Administration Insulin Human Regular 0 units 01/27/21 11:30 01/31/21 08:54 Insulin Regular, Human 100 Units/1 Ml SUB-Q Not Given ACHS [facility] Protocol Ketoconazole 1 applic 01/28/21 14:00 01/31/21 09:02 Ketoconazole 2% Cream 15 Gm TP 1 applic BID JUDY Administration Lisinopril 10 mg 01/31/21 08:00 01/31/21 10:36 Lisinopril 5 Mg Tab PO Not Given QDAY [facility] Metoprolol Tartrate 25 mg 01/29/21 21:00 01/31/21 09:00 Metoprolol Tartrate 25 Mg Tab PO 25 mg DAILY JUDY Administration Morphine Sulfate 2 mg 01/27/21 10:00 Morphine 4 Mg/1 Ml Inj IV Q4H PRN Pain , Severe (7-10) Ondansetron HCl 4 mg 01/27/21 10:00 Ondansetron 4 Mg/2 Ml Inj IV Q8H PRN Nausea And Vomiting Senna 8.6 mg 01/27/21 10:00 Sennosides 8.6 Mg Tab PO Q12HR PRN Constipation Sodium Chloride 10 ml 01/27/21 10:00 01/31/21 09:00 Sodium Chloride 0.9% 10 Ml Flush Syringe IV 10 ml BID JUDY Administration Sodium Chloride 10 ml 01/27/21 10:00 Sodium Chloride 0.9% 10 Ml Flush Syringe IV PRN PRN LINE FLUSH Nutrition/Malnutrition Assess - Dietary Evaluation Nutrition/Malnutrition Findings: Nutrition Notes Start: 01/28/21 11:34 Freq: Status: Active Protocol: Document 01/28/21 12:44 ELYSIA (Rec: 01/28/21 12:58 ELYSIA [email or web address]) Nutrition Notes 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 Labs/Tests 01/28: Unavailable. Pertinent Medications 01/28: Nutritionally unremarkable. Height 5 ft 2 in Weight 112.8 kg Adel Body Weight (kg) 50.00 BMI 45.4 Weight Status Morbidly Obese Percent of energy/protein needs met: Prescribed C/CC Diet provides for energy/protein needs (1, 977 Kcal/86 g) during LOS. Burn Absent Trauma Absent GI Symptoms None Food Allergy No Skin Integrity/Comment Clear, warm, dry. #1 Nutrition Diagnosis Food and nutrition-related knowledge deficit Etiology Multiple concomitant chronic metabolic conditions As Evidenced by Signs and Symptoms High BMI, Current emergency situation. Is patient on ventilator? No Is Patient Ambulatory and/or Out of Bed Yes REE-([place]-ambulatory/OOB) [ 2133.625 [id number]] Kcal/Kg value to use for calculation 18 Approximate Energy Requirements Using 2030 kcal/Kg Calculation Used for Recommendations Kcal/kg Additional Notes Protein: 0.8-1.0 g/Kg/day; 40- 50 g/day; 160-200 Kcal/day ( from IBW). Fluids: 1.0 ml/Kcal/day, or as per MD. Nutrition Intervention Change Diet Order: Continue Cardiac/Consistent Carbohydrates Diet. Goal #1 Maintain body weight within +/ - 3% of current BWt during LOS . Goal #2 Reach and maintain acceptable chemistry lab values during LOS. Follow-Up By: 02/04/21 Additional Comments Continue monitoring acceptance of foods, %PO intake of meals , Hydration, and BM. - Attestation Statement I have reviewed and agreed w/ Malnutrition eval & tx plan: Yes
[2021-01-31] MEDS: LACTATED RINGERS 1,000 ML IV SCH (13:37)
[2021-02-01] MEDS: HEPARIN 5,000 UNIT/1 ML VIAL SUB-Q SCH ×3 (05:39→21:10)
[2021-02-01] MEDS: INSULIN REGULAR, HUMAN 100 UNITS/1 ML SUB-Q SCH ×4 (08:30→21:12)
[2021-02-01] MEDS: METOPROLOL TARTRATE 25 MG TAB PO SCH (10:21)
[2021-02-01] MEDS: amLODIPine 10 MG TAB PO SCH (10:22)
[2021-02-01] MEDS: FUROSEMIDE 40 MG TAB PO SCH (10:22)
[2021-02-01] MEDS: LISINOPRIL 5 MG TAB PO SCH (10:22)
[2021-02-01] MEDS: allopurinoL 100 MG TAB PO SCH (10:22)
[2021-02-01] MEDS: KETOCONAZOLE 2% CREAM 15 GM TP SCH ×2 (10:27→21:11)
--- NOTE | 2021-02-01 12:34 | Progress Note ---
Assessment and Plan Assessment and plan: Patient is a 60-year-old female with past medical history of hypertension, insulin-dependent diabetes, CKD, hyperlipidemia, and possible hypothyroidism who presented with swelling of bilateral lower extremities and abdomen for approximately 2 weeks. #Acute on chronic diastolic heart failure exacerbation-resolved #Mild diastolic heart failure -Etiology undetermined -Pro BNP 637 -Chest x-ray revealing diffuse pulmonary edema with interstitial infiltrates -TTE reveals mild diastolic heart failure with EF 55-60% -Continue IV Lasix 40 mg twice daily -Continue daily weights, strict I's/O, fluid restriction 1.5 L/day, and telemetry -Continue on cardiac/diabetic diet #Nonanion gap metabolic acidosis-resolved -Gap 21 -Likely secondary to volume overload -will continue to monitor #Hypertension-stable -Continue home antihypertensives: Amlodipine 10 mg daily, metoprolol succinate 25 mg daily. -Restarting enalapril low-dose. #Insulin-dependent diabetes (type II)-state -Pending hemoglobin A1c -Continue moderate SSI with Accu-Cheks with meals -Blood sugar goal [id number] while inpatient #CKD stage IV -Creatinine 2.1 (baseline unknown) -Chronic kidney disease likely secondary to uncontrolled hypertension in the setting of insulin-dependent diabetes. Should follow with nephrology in outpatient setting. -Renally dose meds and avoid nephrotoxic medications #Cutaneous candidiasis -Currently present under abdominal pannus and extending to bilateral upper thighs -Continue ketoconazole cream to be applied to affected areas -Continue to monitor #Possible hypothyroidism-resolved -Pending TSH 3.33, free T4 1.113 -We will continue to follow #Skin breakdown -Wound care consulted for skin evaluation of pannus; appreciate recs #Generalized weakness -Consulting physical therapy and Occupational Therapy; appreciate recs -Patient would require 24-hour care at home or SNF. Case management currently working on SNF placement. #Discharge planning -Patient presented to emergency room disheveled and covered in old crusted feces. Patient endorses living at home with adult children -Social work consulted; appreciate recs -Discharge will be to SNF versus home with home health -Medically ready for discharge. #Advanced care planning -Disease education conducted, care plan discussed, diagnoses discussed, prognosis discussed, and patient acknowledges understanding with care plan -Time: +20 minutes Disposition Plan: Pending SNF placement. Medically ready for discharge. Total Time Spent with Patient (Minutes): 40 History Interval history: No acute events over night. The patient denies fevers, chills, nausea, vomiting, abdominal pain, chest pain/pressure, shortness of breath, urinary symptoms, weak ness, or confusion. Hospitalist Physical - Constitutional Vitals: Temp Pulse Resp BP Pulse Ox 99.1 F 94 H 18 136/53 94 02/01/21 07:46 02/01/21 10:21 02/01/21 10:00 02/01/21 10:21 02/01/21 10:00 General appearance: Present: no acute distress, obese, disheveled - EENT Eyes: Present: PERRL, EOM intact ENT: hearing intact, clear oral mucosa, dentition normal - Neck Neck: Present: supple, normal ROM - Respiratory Respiratory effort: normal - Cardiovascular Rhythm: regular Heart Sounds: Present: S1 & S2 - Extremities Extremities: no ischemia, pulses intact, pulses symmetrical, No edema, normal temperature, normal color Peripheral Pulses: within normal limits - Abdominal General gastrointestinal: soft, non-tender, non-distended, normal bowel sounds - Integumentary Integumentary: Present: clear, warm, dry - Psychiatric Psychiatric: appropriate mood/affect, intact judgment & insight, memory intact, cooperative - Neurologic Neurologic: CNII-XII intact, moves all extremities - Allied Health Allied health notes reviewed: nursing HEART Score - HEART Score EKG: Non-specific Age: 45-65 Risk factors: > 3 risk factors or hx of atherosclerotic disease Troponin: Troponin T 0.033 ng/mL (0.00-0.029) H 01/27/21 05:22 Troponin: 1-3x normal limit - Critical Actions Critical Actions: 4-6 pts:12-16.6% risk of adverse cardiac event. Should be admitted Results - Labs CBC & Chem 7: 01/31/21 04:04 01/31/21 04:04 Labs: Laboratory Last Values WBC 15.2 K/mm3 (4.5-11.0) H 01/31/21 04:04 RBC 3.63 M/mm3 (3.65-5.03) L 01/31/21 04:04 Hgb 9.0 gm/dl (10.1-14.3) L 01/31/21 04:04 Hct 28.5 % (30.3-42.9) L 01/31/21 04:04 MCV 78 fl (79-97) L 01/31/21 04:04 MCH 25 pg (28-32) L 01/31/21 04:04 MCHC 32 % (30-34) 01/31/21 04:04 RDW 18.5 % (13.2-15.2) H 01/31/21 04:04 Plt Count 330 K/mm3 (140-440) 01/31/21 04:04 Lymph % (Auto) 18.9 % (13.4-35.0) 01/31/21 04:04 [place] % (Auto) 8.1 % (0.0-7.3) H 01/31/21 04:04 Eos % (Auto) 2.1 % (0.0-4.3) 01/31/21 04:04 Baso % (Auto) 0.4 % (0.0-1.8) 01/31/21 04:04 Lymph # (Auto) 2.9 K/mm3 (1.2-5.4) 01/31/21 04:04 [place] # (Auto) 1.2 K/mm3 (0.0-0.8) H 01/31/21 04:04 Eos # (Auto) 0.3 K/mm3 (0.0-0.4) 01/31/21 04:04 Baso # (Auto) 0.1 K/mm3 (0.0-0.1) 01/31/21 04:04 Add Manual Diff Complete 01/27/21 05:22 Total Counted 100 01/27/21 05:22 Seg Neutrophils % 70.5 % (40.0-70.0) H 01/31/21 04:04 Seg Neuts % (Manual) 90.0 % (40.0-70.0) H 01/27/21 05:22 Band Neutrophils % 1.0 % 01/27/21 05:22 Lymphocytes % (Manual) 7.0 % (13.4-35.0) L 01/27/21 05:22 Monocytes % (Manual) 2.0 % (0.0-7.3) 01/27/21 05:22 Nucleated RBC % Not Reportable 01/27/21 05:22 Seg Neutrophils # 10.7 K/mm3 (1.8-7.7) H 01/31/21 04:04 Seg Neutrophils # Man 19.9 K/mm3 (1.8-7.7) H 01/27/21 05:22 Band Neutrophils # 0.2 K/mm3 01/27/21 05:22 Lymphocytes # (Manual) 1.5 K/mm3 (1.2-5.4) 01/27/21 05:22 Abs React Lymphs (Man) 0.0 K/mm3 01/27/21 05:22 Monocytes # (Manual) 0.4 K/mm3 (0.0-0.8) 01/27/21 05:22 Eosinophils # (Manual) 0.0 K/mm3 (0.0-0.4) 01/27/21 05:22 Basophils # (Manual) 0.0 K/mm3 (0.0-0.1) 01/27/21 05:22 Metamyelocytes # 0.0 K/mm3 01/27/21 05:22 Myelocytes # 0.0 K/mm3 01/27/21 05:22 Promyelocytes # 0.0 K/mm3 01/27/21 05:22 Blast Cells # 0.0 K/mm3 01/27/21 05:22 WBC Morphology Not Reportable 01/27/21 05:22 Hypersegmented Neuts Not Reportable 01/27/21 05:22 Hyposegmented Neuts Not Reportable 01/27/21 05:22 Hypogranular Neuts Not Reportable 01/27/21 05:22 Smudge Cells Not Reportable 01/27/21 05:22 Toxic Granulation 1+ 01/27/21 05:22 Toxic Vacuolation Not Reportable 01/27/21 05:22 Dohle Bodies Not Reportable 01/27/21 05:22 Pelger-Huet Anomaly Not Reportable 01/27/21 05:22 Brando Rods Not Reportable 01/27/21 05:22 Platelet Estimate Consistent w auto 01/27/21 05:22 Clumped Platelets Not Reportable 01/27/21 05:22 Plt Clumps, EDTA Not Reportable 01/27/21 05:22 Large Platelets Not Reportable 01/27/21 05:22 Giant Platelets Not Reportable 01/27/21 05:22 Platelet Satelliting Not Reportable 01/27/21 05:22 Plt Morphology Comment Not Reportable 01/27/21 05:22 RBC Morphology Normal 01/27/21 05:22 Dimorphic RBCs Not Reportable 01/27/21 05:22 Polychromasia Not Reportable 01/27/21 05:22 Hypochromasia Not Reportable 01/27/21 05:22 Poikilocytosis Not Reportable 01/27/21 05:22 Anisocytosis Not Reportable 01/27/21 05:22 Microcytosis Not Reportable 01/27/21 05:22 Macrocytosis Not Reportable 01/27/21 05:22 Spherocytes Not Reportable 01/27/21 05:22 Pappenheimer Bodies Not Reportable 01/27/21 05:22 Sickle Cells Not Reportable 01/27/21 05:22 Target Cells Not Reportable 01/27/21 05:22 Tear Drop Cells Not Reportable 01/27/21 05:22 Ovalocytes Not Reportable 01/27/21 05:22 Helmet Cells Not Reportable 01/27/21 05:22 [place] Bodies Not Reportable 01/27/21 05:22 [place] Rings Not Reportable 01/27/21 05:22 [place] Cells Not Reportable 01/27/21 05:22 Bite Cells Not Reportable 01/27/21 05:22 Crenated Cell Not Reportable 01/27/21 05:22 Elliptocytes Not Reportable 01/27/21 05:22 Acanthocytes (Spur) Not Reportable 01/27/21 05:22 Rouleaux Not Reportable 01/27/21 05:22 Hemoglobin C Crystals Not Reportable 01/27/21 05:22 Schistocytes Not Reportable 01/27/21 05:22 Malaria parasites Not Reportable 01/27/21 05:22 Ry Bodies Not Reportable 01/27/21 05:22 Hem Pathologist Commnt No 01/27/21 05:22 PT 15.9 Sec. (12.2-14.9) H 01/27/21 05:22 INR 1.15 (0.87-1.13) H 01/27/21 05:22 APTT 41.4 Sec. (24.2-36.6) H 01/27/21 05:22 Sodium 140 mmol/L (137-145) 01/31/21 04:04 Potassium 4.3 mmol/L (3.6-5.0) 01/31/21 04:04 Chloride 102.9 mmol/L (98-107) 01/31/21 04:04 Carbon Dioxide 25 mmol/L (22-30) 01/31/21 04:04 Anion Gap 16 mmol/L 01/31/21 04:04 BUN 19 mg/dL (7-17) H 01/31/21 04:04 Creatinine 1.8 mg/dL (0.6-1.2) H 01/31/21 04:04 Estimated GFR 34 ml/min 01/31/21 04:04 BUN/Creatinine Ratio 11 % 01/31/21 04:04 Glucose 114 mg/dL (65-100) H 01/31/21 04:04 POC Glucose 144 mg/dL (70-105) H 02/01/21 11:41 Calcium 8.4 mg/dL (8.4-10.2) 01/31/21 04:04 Phosphorus 3.00 mg/dL (2.5-4.5) 01/31/21 04:04 Magnesium 1.60 mg/dL (1.7-2.3) L 01/31/21 04:04 Total Bilirubin 0.40 mg/dL (0.1-1.2) 01/27/21 05:22 AST 18 units/L (5-40) 01/27/21 05:22 ALT 8 units/L (7-56) 01/27/21 05:22 Alkaline Phosphatase 97 units/L (35-129) 01/27/21 05:22 Total Creatine Kinase 622 units/L (30-135) H 01/27/21 05:22 Troponin T 0.033 ng/mL (0.00-0.029) H 01/27/21 05:22 NT-Pro-B Natriuret Pep 637.6 pg/mL (0-900) 01/27/21 05:22 Total Protein 7.6 g/dL (6.3-8.2) 01/27/21 05:22 Albumin 3.6 g/dL (3.9-5) L 01/27/21 05:22 Albumin/Globulin Ratio 0.9 % 01/27/21 05:22 Triglycerides 74 mg/dL (2-149) 01/27/21 05:22 Cholesterol 158 mg/dL (50-199) 01/27/21 05:22 LDL Cholesterol Direct 92 mg/dL (50-130) 01/27/21 05:22 HDL Cholesterol 51 mg/dL (40-59) 01/27/21 05:22 Cholesterol/HDL Ratio 3.25 % 01/27/21 05:22 TSH 3.330 mlU/mL (0.270-4.200) 01/28/21 05:28 Free T4 1.13 ng/dL (0.76-1.46) 01/28/21 05:28 Urine Color Yellow (Yellow) 01/27/21 11:10 Urine Turbidity Clear (Clear) 01/27/21 11:10 Urine pH 5.0 (5.0-7.0) 01/27/21 11:10 Ur Specific [place] 1.010 (1.003-1.030) 01/27/21 11:10 Urine Protein >500 mg/dL (Negative) 01/27/21 11:10 Urine Glucose (UA) 50 mg/dL (Negative) 01/27/21 11:10 Urine Ketones Neg mg/dL (Negative) 01/27/21 11:10 Urine Blood Sm (Negative) 01/27/21 11:10 Urine Nitrite Neg (Negative) 01/27/21 11:10 Urine Bilirubin Neg (Negative) 01/27/21 11:10 Urine Urobilinogen < 2.0 mg/dL (<2.0) 01/27/21 11:10 Ur Leukocyte Esterase Neg (Negative) 01/27/21 11:10 Urine WBC (Auto) 3.0 /HPF (0.0-6.0) 01/27/21 11:10 Urine RBC (Auto) 4.0 /HPF (0.0-6.0) 01/27/21 11:10 U Epithel Cells (Auto) 2.0 /HPF (0-13.0) 01/27/21 11:10 Urine Mucus Few /HPF 01/27/21 11:10 Coronavirus (PCR) Negative (Negative) 01/29/21 Unknown Guzman/IV: Voiding Method Indwelling Catheter Active Medications - Current Medications Current Medications: Generic Name Dose Route Start Last Admin Trade Name Freq PRN Reason Stop Dose Admin Acetaminophen 650 mg 01/27/21 10:00 Acetaminophen 325 Mg Tab PO Q4H PRN Pain MILD(1-3)/Fever >100.5/NEAL Hydrocodone Bitart/Acetaminophen 2 each 01/27/21 10:00 01/29/21 06:03 Hydrocodone/Acetaminophen 5-325 Mg Tab PO 2 each Q6H PRN Administration Pain, Moderate (4-6) Allopurinol 100 mg 01/29/21 21:00 02/01/21 10:22 Allopurinol 100 Mg Tab PO 100 mg QDAY JUDY Administration Amlodipine Besylate 10 mg 01/29/21 21:00 02/01/21 10:22 Amlodipine 10 Mg Tab PO 10 mg QDAY JUDY Administration Dextrose 50 ml 01/27/21 10:00 Dextrose 50% In Water (25gm) 50 Ml Syringe IV Q30MIN PRN Hypoglycemia Protocol Docusate Sodium 100 mg 01/27/21 10:00 Docusate Sodium 100 Mg Cap PO 02/06/21 09:59 BID PRN Constipation Famotidine 10 mg 01/27/21 10:00 Famotidine 10 Mg Tab PO BID PRN Dyspepsia Furosemide 40 mg 01/29/21 10:00 02/01/21 10: Furosemide 40 Mg Tab PO 40 mg QDAY JUDY Administration Heparin Sodium (Porcine) 5,000 unit 01/27/21 14:00 02/01/21 05:39 Heparin 5,000 Unit/1 Ml Vial SUB-Q 5,000 unit Q8HR JUDY Administration Lactated Ringer's 1,000 mls @ 150 mls/hr 01/28/21 17:30 01/31/21 13:37 Lactated Ringers IV 150 mls/hr DIRECT JUDY Administration Insulin Human Regular 0 units 01/27/21 11:30 02/01/21 08:30 Insulin Regular, Human 100 Units/1 Ml SUB-Q Not Given ACHS JUDY Protocol Ketoconazole 1 applic 01/28/21 14:00 02/01/21 10:27 Ketoconazole 2% Cream 15 Gm TP 1 applic BID JUDY Administration Lisinopril 10 mg 01/31/21 08:00 02/01/21 10:22 Lisinopril 5 Mg Tab PO 10 mg QDAY JUDY Administration Metoprolol Tartrate 25 mg 01/29/21 21:00 02/01/21 10:21 Metoprolol Tartrate 25 Mg Tab PO 25 mg DAILY JUDY Administration Morphine Sulfate 2 mg 01/27/21 10:00 Morphine 4 Mg/1 Ml Inj IV Q4H PRN Pain , Severe (7-10) Ondansetron HCl 4 mg 01/27/21 10:00 Ondansetron 4 Mg/2 Ml Inj IV Q8H PRN Nausea And Vomiting Senna 8.6 mg 01/27/21 10:00 Sennosides 8.6 Mg Tab PO Q12HR PRN Constipation Sodium Chloride 10 ml 01/27/21 10:00 02/01/21 10:26 Sodium Chloride 0.9% 10 Ml Flush Syringe IV 10 ml BID JUDY Administration Sodium Chloride 10 ml 01/27/21 10:00 02/01/21 05:39 Sodium Chloride 0.9% 10 Ml Flush Syringe IV 10 ml PRN PRN Administration LINE FLUSH Nutrition/Malnutrition Assess - Dietary Evaluation Nutrition/Malnutrition Findings: Nutrition Notes Start: 01/28/21 11:34 Freq: Status: Active Protocol: Document 01/28/21 12:44 ELYSIA (Rec: 01/28/21 12:58 ELYSIA [id number]) Nutrition Notes Need for Assessment generated from: buttermaker helper Initial or Follow up Assessment Current Diagnosis CKD(stage I-IV),Diabetes, Hypertension,Hyperlipidemia Other Pertinent Diagnosis Chest pain, abdomen and lower extremities swelling Current Diet Cardiac/Consistent Carbohydrates Diet (since L ). Labs/Tests 01/28: Unavailable. Pertinent Medications 01/28: Nutritionally unremarkable. Height 5 ft 2 in Weight 112.8 kg [place] Body Weight (kg) 50.00 BMI 45.4 Weight Status Morbidly Obese Percent of energy/protein needs met: Prescribed C/CC Diet provides for energy/protein needs (1, 977 Kcal/86 g) during LOS. Burn Absent Trauma Absent GI Symptoms None Food Allergy No Skin Integrity/Comment Clear, warm, dry. #1 Nutrition Diagnosis Food and nutrition-related knowledge deficit Etiology Multiple concomitant chronic metabolic conditions As Evidenced by Signs and Symptoms High BMI, Current emergency situation. Is patient on ventilator? No Is Patient Ambulatory and/or Out of Bed Yes REE-(Benoit-St. Jeor-ambulatory/OOB) [ 2133.625 NUTR.[id number]] Kcal/Kg value to use for calculation 18 Approximate Energy Requirements Using 2030 kcal/Kg Calculation Used for Recommendations Kcal/kg Additional Notes Protein: 0.8-1.0 g/Kg/day; 40- 50 g/day; 160-200 Kcal/day ( from IBW). Fluids: 1.0 ml/Kcal/day, or as per MD. Nutrition Intervention Change Diet Order: Continue Cardiac/Consistent Carbohydrates Diet. Goal #1 Maintain body weight within +/ - 3% of current BWt during LOS . Goal #2 Reach and maintain acceptable chemistry lab values during LOS. Follow-Up By: 02/04/21 Additional Comments Continue monitoring acceptance of foods, %PO intake of meals , Hydration, and BM. - Attestation Statement I have reviewed and agreed w/ Malnutrition eval & tx plan: Yes
[2021-02-02] MEDS: HEPARIN 5,000 UNIT/1 ML VIAL SUB-Q SCH (06:09)
[2021-02-02] MEDS: INSULIN REGULAR, HUMAN 100 UNITS/1 ML SUB-Q SCH (08:36)
[2021-02-02] MEDS: METOPROLOL TARTRATE 25 MG TAB PO SCH (10:18)
[2021-02-02] MEDS: LISINOPRIL 5 MG TAB PO SCH (10:19)
[2021-02-02] MEDS: amLODIPine 10 MG TAB PO SCH (10:19)
[2021-02-02] MEDS: FUROSEMIDE 40 MG TAB PO SCH (10:19)
[2021-02-02] MEDS: allopurinoL 100 MG TAB PO SCH (10:19)
[2021-02-02] MEDS: KETOCONAZOLE 2% CREAM 15 GM TP SCH (10:20)
--- NOTE | 2021-02-02 11:04 | Discharge Summary ---
Providers - Providers Date of Admission: 01/27/21 08:50 Date of discharge: 02/02/21 Attending physician: DM SELLERS MD 01/27/21 10:19 Consult to Case Management [CONS] Urgent Services Needed at Discharge: Home Health Services Physical Therapy Occupational Therapy Rn Rehabilitation Notified:: case management Was contact made?: No Time called:: 10:21 Comment:: no answer Additional Physician Instructions: Consult to Wound/ET Nurse [CONS] Urgent Reason For Exam: wound eval 01/27/21 16:18 Occupational Therapy Evaluate and Treat [CONS] Routine Comment: Reason For Exam: Deconditioning Physical Therapy Evaluation and Treat [CONS] Routine Comment: Reason For Exam: Deconditioning Primary care physician: AURELIA TAYLOR Hospitalization Reason for admission: lower extremity swelling Condition: Fair Hospital course: 60-year-old female with history of hypertension, insulin-dependent diabetes, CKD and hyperlipidemia presented with lower extremity edema x2 weeks. Echocardiogram showed ejection fraction of 55 to 60% with mild diastolic dysfunction. She was diagnosed with acute diastolic heart failure. She was started on Lasix 40 IV twice daily. Home blood pressure medications were restarted as well. Once medically stable, patient was discharged to [facility] long term Disposition: 03 HALF-WAY FACILITY Final Discharge Diagnosis (Prints w/discharge instructions): MARILIN on CKD stage IV. Acute diastolic heart failure. Non-anion gap metabolic acidosis Time spent for discharge: 20 minutes Core Measure Documentation - Palliative Care Palliative Care/ Comfort Measures: Not Applicable - Core Measures Any of the following diagnoses?: heart failure - Heart Failure Discharge Requirements JOSUE/ARB for LVSD if EF <40%: Not Applicable Beta vin at discharge: Yes Exam - Constitutional Vitals: Temp Pulse Resp BP Pulse Ox 97.6 F 81 18 131/57 91 02/02/21 07:55 02/02/21 10:18 02/02/21 07:55 02/02/21 10:18 02/02/21 07:55 Plan Follow up with: MARGARITA PALACIOS MD [Referring] - 3-5 Days
[2021-02-02 12:25] VITALS: BP 143/65
== END 2021-02-02 15:56 | DRG 291 ==
LOC: ED 04:16 → 4A 07:33 → OBSVTOIN 08:50 → 4A 18:27
PROVIDERS: ADMIT Student in an Organized Health Care Education/Training Program; ATTEND Student in an Organized Health Care Education/Training Program
DX: I13.0 Hypertensive heart and chronic kidney disease with heart failure and stage 1 through stage 4 chronic kidney disease, or unspecified chronic kidney disease (principal); I50.33 Acute on chronic diastolic (congestive) heart failure; E87.2 Acidosis; B37.89 Other sites of candidiasis; I31.3 Pericardial effusion (noninflammatory); Z68.41 Body mass index [BMI] 40.0-44.9, adult; N18.4 Chronic kidney disease, stage 4 (severe); Z20.822 Contact with and (suspected) exposure to COVID-19; E11.22 Type 2 diabetes mellitus with diabetic chronic kidney disease; E03.9 Hypothyroidism, unspecified; E78.00 Pure hypercholesterolemia, unspecified; Z90.710 Acquired absence of both cervix and uterus; Z87.891 Personal history of nicotine dependence; E66.01 Morbid (severe) obesity due to excess calories; Z83.3 Family history of diabetes mellitus; Z79.4 Long term (current) use of insulin; E78.5 Hyperlipidemia, unspecified; B37.9 Candidiasis, unspecified
CPT/HCPCS: 36415; 71045; 71250; 80048; 80053; 80061; 81001; 82550; 82962; 83735; 83880; 84100; 84439; 84443; 84484; 85007; 85025; 85027; 85610; 85730; 87086; 90686; 93005; 93306; G0378; J0610; J1644; J1815; J1940; J3475; J7120; U0003

== ENCOUNTER → 2021-11-24 | Emergency (ER) | payer MEDICARE | LOC: ED 11:10 | DX: M79.89 Other specified soft tissue disorders (principal); Z53.21 Procedure and treatment not carried out due to patient leaving prior to being seen by health care provider ==